=== PATIENT | male | born 1955 | race Hispanic/Latino ===

== ENCOUNTER 2024-08-24 12:53 | Inpatient (IN) | payer OTHER, SELFPAY ==
[2024-08-24] VITALS (27 sets, daily range): BP systolic 60–179; BP diastolic 50–102; BMI 32.2
[2024-08-24 11:41] LABS: % Basophils 0.6 % (0-2); % Eosinophils 2.4 % (0-6); % Immature Granulocytes 0.5 % (0-0.5); % Lymphocytes 31.6 % (20.5-51.1); % Neutrophils 55.9 % (42.2-75.2); Absolute Basophils 0.1 10^3/uL (0-0.2); Absolute Eosinophils 0.3 10^3/uL (0-0.7); Absolute Immature Granulocytes 0.1 10^3/uL (0-0.05); Absolute Lymphocytes 3.9 10^3/uL (1.2-3.4); Absolute Monocytes 1.1 10^3/uL (0.1-0.6); Absolute Neutrophils 6.9 10^3/uL (1.4-6.5); Hematocrit 51.7 % (39.0-52.0); Hemoglobin 16.7 g/dL (13.0-18.0); Mean Corp Hgb Conc. 32.3 g/dL (33.0-37.0); Mean Corpuscular Hgb 30.4 pg (27.0-31.0); Mean Corpuscular Volume 94.2 fL (80.0-94.0); Mean Platelet Volume 10.2 fL (7.4-10.4); Nucleated Red Blood Cells % 0 % (-); Platelet Count 212 10^3/uL (130-400); Red Blood Cell Count 5.49 10^6/uL (4.70-6.10); Red Cell Dist. Width 14.4 % (11.5-14.5); White Blood Cell Count 12.3 10^3/uL (4.8-10.8)
--- NOTE | 2024-08-24 11:43 | PHANOTE ---
patient comes into [facility] with Veronica galloway from [place] paperwork.
drug list includes:
loventrax (rivaroxaban 20mg tablets)
rosuvastatina 10mg tablets
alopurinol 300mg tablets
norfenon 150mg tablets
concor comprimido 1,25mg tablets (bisoprolol)
omeprazol 40mg
unival 1 [address] opra tablets
colchiquim 1 mg
angiotrofin retard 180mg
[2024-08-24] MEDS: SUBLIMAZE 100 MCG IV (11:59)
[2024-08-24] MEDS: DIPRIVAN 100 IV ×2 (12:00→16:18)
[2024-08-24] MEDS: SUBLIMAZE 100 IV ×2 (12:04→19:24)
--- NOTE | 2024-08-24 12:04 | ED.GENMED ---
History of Present Illness
General
Chief Complaint: Breathing Problem
Source: patient, spouse and ambulance crew
Exam Limitations: none
Time Seen by Provider: 08/24/24 11:57
Nursing documentation reviewed up to this point in time: agreed with
History of Present Illness
History of Present Illness:
69-year-old male presents emergency department due to shortness of breath, low blood pressure. He has been in the country from [place] 2 weeks. He had a cardiac ablation 4 to 6 weeks ago in [place]. He complains of trouble breathing. He is
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
Past History
Past History
ED Past Medical History: Arrthythmia
ED Past Surgical History: Cardiac (Cardiac ablation)
Social History
Tobacco: Non-smoker
Alcohol: None
Drug: None
Personal:
Living: with family
Review of Systems
Review of Systems
Allergies reviewed?: Yes
All Other Systems: Not applicable
Respiratory: Reports trouble breathing
Phy Exam
Physical Exam
Physical Exam:
Physical Exam
General: Severe respiratory distress, not cooperating with BiPAP
Neck: supple. no meningeal signs. normal posterior pharynx
Heart: s1/s2 regular rate and rhythm, no murmur. equal radial
pulses.
HEENT: Pupils equal round reactive to light, EOMI
Lungs: no acute respiratory distress. clear bilaterally
Abdomen: normal bowel sounds. not tender. no CVAT
Neuro: alert difficult to assess orientation. no focal neurological deficits cranial nerves II through XII intact
Skin: no rash
Psychiatric: well kept. interactive and cooperative
Extremities: no edema. no calf tenderness. negative homans. good distal pulses
Scores
Heart Failure Risk
Heart Failure Risk Score: Yes
History of Stroke or TIA: No
History of intubation for respiratory distress: No
Heart rate on ED arrival >/= 110: Yes
SaO2 <90% on arrival on room air: Yes
HR >/=110 during 3min walk test (or too ill to perform test): Yes
ECG has acute ischemic changes: No
Urea >/=12mmol/L (BUN 33.6mg/dL): No
Serum CO2>/=35mmol/L: No
Troponin I or T elevated to IL Level (0.4mg/dL): No
NT-proBNP >/=5,000ng/L (5,000pg/ml): No
HF Risk Score: 3
Admission Status: HIGH RISK 15.9% Consider SNF treatment or admission to hospital
Course
Orders/Labs/Results
Orders:
Orders
08/24/24
Electrocardiogram (*1) Stat
Comment: DONE EMR
08/24/24 11:29
Electrocardiogram (*1) Urgent
Reason for Study: Shortness of Breath
08/24/24 11:30
EKG- Treatment ONCE
Chest X-ray Portable [CR Chest Portable - 1 View] Urgent
Comment:
Reason For Exam: sob
Reason Study Needs to be Portable: Unable to Transport
08/24/24 11:32
BNP [NT-proBNP] Urgent
Complete Blood Count/With Diff Urgent
Troponin I Urgent
08/24/24 11:33
Nitroglycerin 100 mg/250 ml [Nitroglycerin Premix] 100 mg in 250 ml .ROUTE .STK-MED
08/24/24 11:52
NORepinephrine 4 MG/250 ML [Levophed] 0 mg in 0 ml .ROUTE .STK-MED
08/24/24 11:56
FentaNYL 1,000 MCG/100 ML [Sublimaze] 1,000 mcg in 100 ml .ROUTE .STK-MED
Fentanyl Citrate/Pf [Sublimaze] 100 mcg .ROUTE .STK-MED ONE
08/24/24 11:57
Propofol 1,000,000 Mcg/100 ml [Diprivan] 1,000,000 mcg in 100 ml .ROUTE .STK-MED
08/24/24 12:00
FentaNYL 1,000 MCG/100 ML [Sublimaze] 1,000 mcg in 100 ml IV NOW
Indication:: Light Sedation
Begin Infusion:: Now
Goal:: pain score </= 1, CPOT 0-2
Maximum dose in mcg/hr:: 300
Initial Dose in mcg/hr:: 100
Titration Instructions:: Titrate every 30 minutes if patient exhibits signs of pain or discomfort
Titration Instructions:: (pain score >/= 2, CPOT >/= 3).
Titration Instructions:: Administer bolus dose and increase infusion by 25 mcg/hr.
Taper Instructions:: If pain score at goal for 4 consecutive hours (pain score </= 1, CPOT 0-2)
Taper Instructions:: decrease infusion by 50 mcg/hr every 2 hours.
Taper Instructions:: When dose </= 50 mcg/hr may turn infusion off and consider PRN
Taper Instructions:: intermittent bolus doses only.
Over-sedation Instructions:: If CPOT 0-2 (goal) and RASS -3 to -5 (below goal) decrease sedative by 50%
Over-sedation Instructions:: first. If pain score remains at goal and RASS remains below goal in 1 hour,
Over-sedation Instructions:: decrease opioid infusion by 50%.
Notify provider:: immediately if pt exhibits: chest wall rigidity, hemodynamic instability,
Notify provider:: agitation/pain despite maximum dosing, pain when RASS below goal.
Additional Instructions:: Patient MUST be mechanically ventilated.
Fentanyl Citrate/Pf [Sublimaze] 100 mcg IV NOW STA
Fentanyl Citrate/Pf [Sublimaze] 50 mcg IV [id number] PRN
Propofol 1,000,000 Mcg/100 ml [Diprivan] 1,000,000 mcg in 100 ml IV NOW
Indication:: Light Sedation
Begin Infusion:: Now
Goal:: RASS 0 to -2
Maximum dose in mcg/kg/min:: 50
Initial dose based on RASS:: Yes
If RASS is:: +1 or pt hemodynamically unstable (SBP < 90mmHg), initiate at 10 mcg/kg/min
If RASS is:: +2, initiate at 20 mcg/kg/min
If RASS is:: greater than or equal to +3, initiate at 30 mcg/kg/min
Titration Instructions:: Titrate by 5-10 mcg/kg/min every 5 minutes until RASS 0 to -2 achieved.
Taper Instructions:: If RASS is at or below goal for 4 consecutive hours decrease infusion by
Taper Instructions:: 5-10 mcg/kg/min every 2 hours to off.
Over-sedation Instructions:: If CPOT 0-2 (at goal) AND RASS -3 to -5 (below goal) decrease sedative by
Over-sedation Instructions:: 50% first. If pain score remains at goal and RASS remains below goal in
Over-sedation Instructions:: 1 hour, decrease opioid infusion by 50%.
Notify provider:: immediately if patient exhibits signs/symptoms of propofol-related
Notify provider:: infusion syndrome.
Additional Instructions:: Patient MUST be mechanically ventilated and MUST receive analgesia.
08/24/24 12:07
CR Chest Portable - 1 View Urgent
Comment:
Reason For Exam: post intubation
Reason Study Needs to be Portable: Patient Unstable
08/24/24 12:35
Electrocardiogram (*1) Urgent
Reason for Study: Tachycardia
EKG- Treatment ONCE
08/24/24 12:41
Admit/Transfer Patient As Directed
Co-Sign Provider:
Level of Care: Inpatient admission
Assign to:: ICU
Physician / Group: radha
Diagnosis: cardiac arrest, CHF
Reason for Hospitalization: cardiac arrest chf
Expected length of stay greater than two midnights?: Yes
ELOS- Estimated Length of Stay in days: 2
I certify the patient meets the requirements for IP care: Yes
PRN Pain Medication Management As Directed
May give lesser potent ordered pain med per pt: Yes
preference::
Protocol:: Medication orders for pain may be administered in a
manner that supports deferring to patient preference
when the pt is:
- Requesting an ordered lesser potent pain medication.
Least to most potent pain medications are defined
as: acetaminophen < NSAID < tramadol < opioids
(morphine, oxycodone, hydromorphone).
- Requesting a lesser dose of the same medication IF
ORDERED.
- Requesting a less intrusive route of administration
if both routes are prescribed by the provider (PO <
IV).
08/24/24 12:42
Code Status As Directed
Resuscitation Status: Full Code
08/24/24 13:22
Activity As Directed
Activity Level: As Tolerated
I/O [Intake/ Output] As Directed
Frequency: Per unit guidelines
Vital Signs As Directed
Frequency: Per unit guidelines
DX Deep Vein Thrombosis Video Routine
08/25/24 06:00
Complete Blood Count/With Diff IN AM
Comprehensive Metabolic Panel IN AM
Abnormal Lab Results
08/24/24
11:32
WBC 12.3 H 10^3/uL
(4.8-10.8)
MCV 94.2 H fL
(80.0-94.0)
MCHC 32.3 L g/dL
(33.0-37.0)
Abs Immat Gran (auto) 0.1 H 10^3/uL
(0-0.05)
Absolute Neuts (auto) 6.9 H 10^3/uL
(1.4-6.5)
Absolute Lymphs (auto) 3.9 H 10^3/uL
(1.2-3.4)
Absolute Monos (auto) 1.1 H 10^3/uL
(0.1-0.6)
08/24/24 11:32
08/24/24 12:25
Vital Signs
Initial and Last Documented VS:
Initial Vital Signs
Pulse Resp BP Pulse Ox
108 16 117/102 79
08/24/24 11:24 08/24/24 11:24 08/24/24 11:24 08/24/24 11:24
Last Documented Vital Signs
Temp Pulse Resp BP Pulse Ox
98 F 119 23 98/65 91
08/24/24 15:19 08/24/24 12:15 08/24/24 12:15 08/24/24 12:15 08/24/24 15:32
Procedures
Intubations
Procedure completed by: Shruti
Method of Intubation: glidescope
Tube size (cm): 8.0
Placement confirmed by: auscutation, CXR, capnography and direct visualization
Breath sounds after intubation: equal
Intubation complications: no complications
MDM/Problems Addressed
Differential Diagnosis Includes:
Cardiac arrest rate, respiratory failure
MDM/Problems Addressed:
69-year-old male with respiratory failure, cardiac arrest, pulmonary edema. Patient was not cooperative with BiPAP, became hypoxic, lost pulses and required intubation. After 5 rounds of epinephrine, CPR, patient regained pulses. Chest x-ray
consistent with pulmonary edema. Admit to ICU.
Chronic conditions affecting care: Arrhythmia
Acute Exacerbation and/or Progression of Chronic Illness: Arrhythmia
*Radiology
Radiology exam reviewed: preliminary read by ED provider (Chest x-ray reveals proper placement of ET tube) and radiology read reviewed (Chest x-ray is pulmonary edema)
*Pulse Oximetry
Patient hypoxic: yes
*EKG
Interpreted by ED Provider?: Yes
EKG Intrepretation Date: 08/24/24
EKG Intrepretation Time: 11:53
Interpretation: abnormal
Comparison EKG: no comparison EKG present
Heart Rate: 122
Rate: tachycardiac
[place]: normal axis
Interval: normal interval
QRS Pattern: left bundle branch block
Ischemia: non-specific ST changes
*Operations Controller Interpretation
Rate: tachycardiac
Interpretation: abnormal
Heart Rate: 125
Rhythm: sinus tachycardia
*Critical Care Note
Total Time (30-74mins, 75-104mins- exclusive of procedures): 45
comment:
Critical care statement: A total of 45 minutes of critical care time was provided for this patient. This includes management of unstable vital signs, evaluation of the patient at bedside, reviewing the patient's pertinent medical records, discussion
with consultants, review of old EKGs and review of pertinent medical records. This time with separate from time utilized to perform the aforementioned documented procedures
Patient Management
Social determinants of health affecting care: Living situation and Strong social support
Discussion with other providers: Hospitalist
Escalation/DeEscalation of care consider admission/obs:
Admit indicated
ED Attending Note
-
Portions of this chart may have been created with voice recognition software.� Occasional wrong word or��sound alike� substitutions may have occurred due to the inherent limitations of voice recognition software.
Discharge Plan
Departure
Patient Disposition: Admit
Date of Disposition: 08/24/24
Time of Disposition: 11:59
Admit to: ICU
Presentation/result/management discussed w/ accepting MD/DO: Hospitalist
Patient with high blood pressure during this ER visit?: Yes
Condition: Serious
Discharge Problem:
Respiratory failure, Cardiac arrest
Interventions
Interventions:
*Risk Screen - Suicide Last Done: 08/24/24 11:24
*General Assessment Last Done: 08/24/24 11:24
*Neglect/Abuse Screening Last Done: 08/24/24 11:24
*ED COVID-19 Vaccine History Last Done: 08/24/24 11:24
*Nursing Disposition Last Done: 08/24/24 14:27
ED- Cardiac Assessment Last Done: 08/24/24 11:34
ED- Pulmonary Assessment Last Done: 08/24/24 11:38
Discharge Date and Time
Discharge Date/Time: 08/24/24 14:28
[2024-08-24 12:13] LABS: NT-proBNP 2170 pg/ml; Troponin I < 0.012 ng/ml
--- NOTE | 2024-08-24 12:39 | CON.INTV ---
Consultation
Consultation Request
Date/Time Consultation Requested: 08/24/2024-1 PM
Date/Time Consultation Performed: 08/24/2024-1:30 PM
Requesting Provider: Hospitalist
Performing Provider: Dr. Arreguin
Reason for Consultation: Ventilator/critical care management
Medical History
-
Chief Complaint: Cardiac arrest
History of Present Illness:
69-year-old male with a history of cardiac ablation 4 to 6 weeks ago in [place] recently coming to the [facility] 2 weeks ago presented with shortness of breath with subsequent cardiac arrest in the emergency room-PEA status post immediate CPR, epi
x 5 with ROS within 15 minutes requiring intubation-subsequent rhythm a flutter with moving extremities-hepatology physician consulted for ventilator/critical care management 08/24/2024. Patient is intubated, mechanically ventilated and sedated and review
of systems was unobtainable.
Past Medical History
Past Medical History: None (Arrhythmia status post cardiac ablation in [place] 6 weeks ago.)
Social History
Tobacco: Non-smoker
Alcohol: None
Drug: None
Personal:
Living: With Family
Occupational Exposures: Unknown asbestos exposure
Environmental Exposures: Unknown tuberculosis exposure
Family History
Family History: Unable to Obtain
Allergies / Home Medications
Allergies
Allergy/AdvReac Type Severity Reaction Status Date / Time
Sulfa (Sulfonamide Allergy Unknown Verified 08/24/24 11:36
Antibiotics)
Home Medications
�Medication �Instructions �Recorded �Confirmed �Last Taken �Type
Colchiquim 1 mg PO UD 08/24/24 08/24/24 Unknown History
Diltiazem 180 mg PO DAILY 08/24/24 08/24/24 Unknown History
allopurinol 300 mg tablet 300 mg PO DAILY 08/24/24 08/24/24 Unknown History
bisoprolol fumarate 1 tab PO Q12H 08/24/24 08/24/24 Unknown History
omeprazole 40 mg capsule,delayed 40 mg PO UD 08/24/24 08/24/24 Unknown History
release
propafenone 150 mg tablet 150 mg PO UD 08/24/24 08/24/24 Unknown History
rivaroxaban 20 mg tablet (Xarelto) 20 mg PO QPM 08/24/24 08/24/24 Unknown History
rosuvastatin 10 mg tablet (Crestor) 10 mg PO QPM 08/24/24 08/24/24 Unknown History
sucralfate 1 gram tablet (Carafate) 1 g PO UD 08/24/24 08/24/24 Unknown History
Review of Systems
-
Unable to Obtain full review of systems at this time due to: Patient Intubation
Vitals / Labs / Diagnostic Testing
Vital Signs
Pulse Resp BP Pulse Ox
119 23 98/65 79
08/24/24 12:15 08/24/24 12:15 08/24/24 12:15 08/24/24 11:51
Lab Data
08/24/24 11:32
Diagnostic Testing:
Physical Exam
-
Exam:
Well-nourished and well-developed in no apparent distress
HEENT-atraumatic, normocephalic, oral tracheal intubation
Heart-regular rate and rhythm-no murmurs, rubs or gallops
Chest-clear anteriorly with few basilar crackles and no wheezes
Abdomen soft nondistended
Extremities-no cyanosis, clubbing, edema and good peripheral pulses
Integument-intact, no rashes, lesions or ecchymosis
Neurologically not alert, not oriented, not moving any of his extremities sedated on a ventilator
Assessment
-
69-year-old male with a history of cardiac ablation 4 to 6 weeks ago in [place] recently coming to the [facility] 2 weeks ago presented with shortness of breath with subsequent cardiac arrest in the emergency room-PEA status post immediate CPR, epi
x 5 with ROS within 15 minutes requiring intubation-subsequent rhythm a flutter with moving extremities-hepatology physician consulted for ventilator/critical care management 08/24/2024.
Cardiac arrest
Intubated 08/24/2024-
Extubated
CHF-unknown EF
Recent cardiac ablation in [place] 6 weeks ago
Mild leukocytosis
Diffuse bilateral interstitial and alveolar [id number] EF versus diffuse pneumonia
Conditions present prior to admission:
Arrhythmia status post cardiac ablation July 2024-[place]
Plan
Patient critically ill after cardiac arrest requiring intubation and mechanical ventilation
Admit patient to medical intensive care unit
Ventilator settings reviewed
Adjust ventilator
Follow ABG
Monitor airway pressures
Follow radiographically
VAP prevention protocol
Sedation vacations
Trend troponin
Cardiology evaluation
Arrhythmia monitoring and rate control
Diuresis as tolerated
Monitor renal function, electrolytes, intake/output, lower extremity edema and weight
Replace electrolytes as needed
Check echocardiogram
Check cultures
Check COVID
Trend temperature and leukocytosis
Check procalcitonin
Sputum culture
Empiric antibiotics
DVT prophylaxis
GI prophylaxis if on ventilator and hypotensive
Early nutrition
Early mobilization/bedside range of motion
Critical care statement: A total of 65 minutes of critical care time was provided for this patient today. This includes management of unstable vital signs, evaluation of the patient at bedside, reviewing the patient's pertinent medical records
including radiographs, ventilator management, spontaneous breathing trial management, pressor management, microbiology, laboratory evaluations, and discussion with primary team, consultants, pharmacy, nutrition, physical therapy, case management,
charge nurse, critical care nursing, and respiratory therapy.
Diagnostic data:
Chest x-ray 08/24/2024-diffuse pulm edema versus diffuse pneumonia
Data Reviewed
-
EKG: Report reviewed by me
Radiology: Image personally visualized and interpreted and Report reviewed by me
Labs: Labs reviewed by me
Old Records: Reviewed
Critical Care Time (in minutes): 65
--- NOTE | 2024-08-24 12:57 | HPS.HSE ---
Family Physician
-
Family Physician: INTERVIEWE UNKNOWN - PT NOT
Chief Complaint
-
shortness of breath
History of Present Illness
69-year-old [place]-speaking male past medical history of atrial fibrillation status post ablation on July 22 in [place], hypertension, gout, GERD, presenting with shortness of breath He has been [place] the country for [place] for 2 weeks. He had
cardiac ablation 4 to 6 weeks ago in [place]. He tolerated the procedure well. He complained of shortness of breath today and became diaphoretic and EMS was called. He has had cough since the ablation. No fevers or chills. No dizziness or
syncope. He was in good health until today.
No history of asthma/COPD or sleep apnea. He does not have smoking or alcohol use history.
No family history of heart conditions.
Patient developed cardiac arrest in the emergency room. He was intubated in the emergency room. 5 rounds of epinephrine were given. No shocks were given.
Medical History
Past Medical History
Past Medical History: Reports Other (atrial fibrillation status post ablation on July 22 in [place], hypertension, gout, GERD)
Past Surgical History: Reports Other (Hernia surgery, cataract, tonsillectomy)
Social History
Tobacco: Non-smoker
Alcohol: None
Drug: None
Family History
Family History: Not pertinent
Allergies / Home Medications
Allergies reflects when Allergies were last updated in [facility].
Home Medications with original date entered in [facility]
Allergy/Medication List:
Allergies
Allergy/AdvReac Type Severity Reaction Status Date / Time
Sulfa (Sulfonamide Allergy Unknown Verified 08/24/24 11:36
Antibiotics)
Home Medications
Colchiquim 1 mg PO UD 08/24/24
Diltiazem 180 mg PO DAILY 08/24/24
allopurinol 300 mg tablet 300 mg PO DAILY 08/24/24
bisoprolol fumarate 1 tab PO Q12H 08/24/24
omeprazole 40 mg capsule,delayed release 40 mg PO UD 08/24/24
propafenone 150 mg tablet 150 mg PO UD 08/24/24
rivaroxaban 20 mg tablet (Xarelto) 20 mg PO QPM 08/24/24
rosuvastatin 10 mg tablet (Crestor) 10 mg PO QPM 08/24/24
sucralfate 1 gram tablet (Carafate) 1 g PO UD 08/24/24
Review of Systems
-
History Source: Patient
A 12 point ROS was completed and negative except as noted: Yes
Constitutional: Reports No Symptoms
EENT: Reports No Symptoms
Respiratory: Reports No Symptoms
Cardiac: Reports No Symptoms
Abdomen/GI: Reports No Symptoms
: Reports No Symptoms
Musculoskeletal: Reports No Symptoms
Skin: Reports No Symptoms
Neurological: Reports No Symptoms
Endocrine: Reports No Symptoms
Hematologic/Lymphatic: Reports No Symptoms
Psych: Reports No Symptoms
Physical Exam
Vital Signs
Vital Signs
Pulse Resp BP Pulse Ox
119 23 98/65 79
08/24/24 12:15 08/24/24 12:15 08/24/24 12:15 08/24/24 11:51
Physical Exam
General: Well Developed, Well Nourished and No Apparent Distress
HEENT: NormoCephalic, Moist mucous membranes and Atraumatic
Respiratory: Clear
Cardiac: S1/S2 and Regular Rhythm; No Murmur or Rub
GI: Soft, Non Tender, Non Distended and Normal Bowel Sounds; No Organomegaly
Rectal: Deferred by Provider
Musculoskeletal: No Clubbing, No Cyanosis and No Edema
Skin: No Rash
Neuro: Nonfocal/grossly intact
Laboratory Results
-
08/24/24 11:32
Laboratory Results
Total Bilirubin Cancelled 08/24/24 12:25
Total Bilirubin Cancelled 08/24/24 12:25
AST Cancelled 08/24/24 12:25
AST Cancelled 08/24/24 12:25
ALT Cancelled 08/24/24 12:25
ALT Cancelled 08/24/24 12:25
Alkaline Phosphatase Cancelled 08/24/24 12:25
Alkaline Phosphatase Cancelled 08/24/24 12:25
Troponin I < 0.012 ng/ml 08/24/24 11:32
Data Reviewed
-
Lab Data: Labs Reviewed by me
Old Records: Reviewed
Impression/Plan
-
IMPRESSION:
PLAN:
# Cardiac arrest secondary to hypoxemic respiratory failure
# Hypoxemic respiratory failure secondary to acute CHF exacerbation
-Hypoxemic respiratory failure rather than arrhythmia appears to be the source of cardiac arrest
-Patient was intubated in the ER for cardiac arrest/dyspnea
-Patient currently on propofol, fentanyl
-Blood pressure initially 90s, has improved currently
-Cardiac BNP of 1999
-EKG shows atrial flutter with 2 1 AV conduction
-Troponin negative
-40 IV Lasix, caution with blood pressure
# Atrial flutter with 2-1 conduction block
-Check echo
-cardiology consulted for input regarding rate control/antiarrhythmic
-Hold diltiazem, bisoprolol
Atrial fibrillation status post ablation on July 22
-Normally on propafenone
-Continue Xarelto through NG tube
Essential hypertension
Gout
-Continue allopurinol
GERD
-Continue sucralfate
Full code
DVT prophylaxis�heparin
NPO
--- NOTE | 2024-08-24 13:18 | CON.CAR ---
Addendum entered and electronically signed by Nadege Hernandez MD 08/25/24 12:32:
I saw and examined the patient.
The Inspector Hairspring Truing's note was reviewed and I agree with the note.
Comment: Late entry note
Patient was seen at bedside in the ICU yesterday afternoon around 3:50 PM. Detailed history was obtained and confirmed as below from . Phone discussions were also had with nephew who is a political consultant at [facility] in
[place]. Briefly, patient is a 69-year-old gentleman with past medical history of hypertension, hyperlipidemia, morbid obesity, chronic sinus infections, gout, paroxysmal A-fib status post ablation procedure in [place] on July 22, 2024 on
chronic oral anticoagulation with Xarelto, last dose evening before presentation and propafenone, last dose this morning who presented with acute onset of shortness of breath found to be hypoxic complicated by PEA arrest in the setting of hypoxia
needing urgent intubation and ROSC was obtained after 5 rounds of ACLS with echocardiogram at bedside concerning for severe global hypokinesis, LVEF of about 15% on visual estimation, no significant pericardial effusion, no significant valvular
abnormalities with increasing pressor requirements.
On exam patient is intubated and sedated, moving all extremities when sedation is lowered, tachycardic, normal S1 and S2, no murmurs, rubs or gallops, distant heart sounds, elevated JVD, lungs are clear to auscultation anteriorly, abdomen is obese,
otherwise soft, nontender, nondistended, warm extremities with trace lower extremity edema.
EKG showing atrial flutter with 2-1 conduction, left bundle branch block.
Lab work noted with creatinine of 1.1, lactate of 1.2, normal LFTs
Recommendation:
1. In the setting of severe global hypokinesis with presumably normal echocardiogram previously and increasing pressor requirements, we discussed role of urgent right and left heart catheterization to further define etiology of cardiomyopathy and
to help guide management and assess need for MCS in the setting of cardiogenic shock.
2. After detailed discussion family agreeable with consenting on patient's behalf given he is intubated and sedated.
Further recommendations as discussed with the team based on heart catheterization. Please see full report for further details.
Nadege Hernandez MD, [facility], [facility]
Original Note:
Consultation
Consultation Request
Date/Time Consultation Performed: 08/24/24
Requesting Provider: Dr. Bahena
Performing Provider: Ellie Barreto PA-C for Dr. Hernandez
Reason for Consultation: cardiac arrest
Medical History
-
Chief Complaint: SOB
History of Present Illness:
History obtained from patient's , Erika as patient intubated, sedated. He has history of PAF (~2% burden) which then became persistent (100% burden) as of 02/2024. He was never symptomatic with afib. He underwent ablation 07/22/24 in [place] and
procedure reportedly went well. He is on propafenone and xarelto. He started with cough (feeling of lump in his throat) 2 days post procedure and has persisted. Due to this he was started on trial of colchicine and carafate and was supposed to
complete his course today. 2 weeks ago he and his came to the area to help take care of his 97 yo mother who lives at [facility] who just had what sounds like a TAVR procedure in July. Last evening and this morning his SOB worsened and
called 911. In ER patient had PEA arrest with prompt CPR resulting in 5 rounds of epi, no shocks. With ROSC was noted to be in aflutter rhythm. He is chronically on xarelto as OP. Per patient's son who I spoke to via telephone patient had echo
pre ablation which showed normal EF, no valvular disease or diastolic dysfunction. He does not have history of CAD but son tells me they had ordered a cardiac CT to be completed post ablation based on something they saw during his ablation. Per
nursing patient is moving all extremities. Cardiology consulted for evaluation.
PMH:
PAF s/p ablation procedure in [place] 07/22/24
Chronic OAC with xarelto
Post procedure pericarditis
HTN
HLD
Gout
Chronic sinus infections/issues
Past Medical History
Past Medical History: Other (in HPI)
Social History
Tobacco: Non-Smoker
Alcohol: None
Personal:
Living: With Family
Family History
Family History: Other (valve replacement in mother)
Allergies / Home Medications
Allergy/AdvReac Type Severity Reaction Status Date / Time
Sulfa (Sulfonamide Allergy Unknown Verified 08/24/24 11:36
Antibiotics)
�Medication �Instructions �Recorded �Confirmed �Type
Colchiquim 1 mg PO UD 08/24/24 08/24/24 History
Diltiazem 180 mg PO DAILY 08/24/24 08/24/24 History
allopurinol 300 mg tablet 300 mg PO DAILY 08/24/24 08/24/24 History
bisoprolol fumarate 1 tab PO Q12H 08/24/24 08/24/24 History
omeprazole 40 mg capsule,delayed 40 mg PO UD 08/24/24 08/24/24 History
release
propafenone 150 mg tablet 150 mg PO UD 08/24/24 08/24/24 History
rivaroxaban 20 mg tablet (Xarelto) 20 mg PO QPM 08/24/24 08/24/24 History
rosuvastatin 10 mg tablet (Crestor) 10 mg PO QPM 08/24/24 08/24/24 History
sucralfate 1 gram tablet (Carafate) 1 g PO UD 08/24/24 08/24/24 History
Review of Systems
-
Unable to obtain full review of systems at this time due to: Patient Intubation
History Source: Family
All other systems: Negative unless noted
Physical Exam
Vital Signs
Pulse Resp BP Pulse Ox
119 23 98/65 79
08/24/24 12:15 08/24/24 12:15 08/24/24 12:15 08/24/24 11:51
Lab Results
08/24/24 11:32
Troponin I < 0.012 ng/ml 08/24/24 11:32
Axb-T-Ordkgzsinca Pept 2170 pg/ml 08/24/24 11:32
Physical Exam
General: No Apparent Distress and Intubated
HEENT: Normocephalic and Moist Mucous Membranes
Respiratory: Crackles (few at bases) and Non Labored Respirations
Cardiac: S1/S2, Regular Rhythm and Other (tachycardic)
GI: Soft, Non Tender, Non Distended and Normal Bowel Sounds
Musculoskeletal: No Clubbing, No Cyanosis and Edema (trace of B/L LE)
Skin: Warm and Dry
Neuro: Sedated
Impression / Plan
-
Primary Image Editor: in [place]
Assessment:
Presentation with SOB
PEA arrest with CPR and epi x5 with ROSC
Hypoxemic RF, intubated in ER 08/24/24
B/L PNA vs Acute CHF
LBBB
Atrial flutter
PAF s/p ablation procedure in [place] 07/22/24
Chronic OAC with xarelto
Post procedure pericarditis
HTN
HLD
Gout
Chronic sinus infections/issues
ECHO pre ablation in [place]: EF preserved, no significant valvular disease, no diastolic dysfunction
Plan:
-Patient with recent cardiac ablation procedure in [place] for atrial fibrillation 07/22/2024, visiting his mother at [facility] over last 2 weeks. Last evening and this morning with worsening shortness of breath. This morning called 911
and was brought to ER. In ER patient noted to have PEA arrest with CPR and epi x 5 with ROSC. Suspect arrest to be secondary to hypoxemic respiratory failure. X-ray with diffuse bilateral interstitial and alveolar infiltrates�concern for heart
failure versus pneumonia. At time of ROSC patient noted to be in atrial flutter.
-EKG atrial flutter with left bundle branch block
-follow on tele. was on propafenone as OP. may consider transition to amiodarone if remains with elevated HRs given relative hypotension
-if BPs downtrending, may require pressor support
-check echo
-initial trop negative, trend
-not candidate for cooling protocol
-proBNP 2170. assess response to IV lasix 40mg x1. Cr stable at 1.1. no history of CHF per family. reports cough since procedure - started on colchicine and carafate
-continue xarelto as able. consider transition to IV heparin if remains intubated
-continue treatment of possible PNA per primary service/ip architect. procal pending. covid pending
-his cleaner touch up worker had wanted him to get coronary CT per son based on something they saw during patient's ablation. may require eventual ischemic evaluation.
-d/w patient's . d/w patient's son who is a vascular surgeon in [facility] and updated via telephone. also requested we call patient's nephew who is a cleaner touch up worker at [facility].
Data Reviewed
-
EKG: Tracing Personally Visualized and interpreted
Radiology: Report Reviewed by me
Labs: Labs Reviewed by me
[2024-08-24 13:25] LABS: ALT (SGPT) 40 U/L (0-50); AST (SGOT) 42 U/L (17-59); Albumin 3.6 g/dl (3.5-5.0); Alkaline Phosphatase 65 U/L (38-126); Blood Urea Nitrogen 21 mg/dl (9-20); Calcium 7.9 mg/dl (8.4-10.2); Carbon Dioxide 25 mmol/L (22-30); Chloride 103 mmol/L (98-107); Glucose 246 mg/dl (70-99); Potassium 4.6 mmol/L (3.5-5.1); Sodium 140 mmol/L (135-145); Total Bilirubin 0.9 mg/dl (0.2-1.3); Total Protein 5.7 g/dl (6.3-8.2); Triglycerides 91 mg/dl (10-149); eGFR > 60.00
[2024-08-24] MEDS: LASIX 40 MG IV (13:46)
[2024-08-24] MEDS: SUBLIMAZE 50 MCG IV ×3 (13:46→14:54)
[2024-08-24] MEDS: LEVOPHED 250 IV (13:50)
[2024-08-24 14:16] LABS: B.E. -2.1 mmol/L; HCO3 25.1 mmol/L (21-28); O2 Saturation % 98.5 % (94-98); PCO2 51 mmHg (35-48); PO2 102 mmHg (83-108)
[2024-08-24 14:20] LABS: Glucose - Point of Care 175 mg/dl (70-99)
[2024-08-24] MEDS: XOPENEX 0.63 MG INHALANT SOLUTION INH (14:31)
[2024-08-24 14:35] LABS: COVID-19 Antigen Negative (Negative)
--- NOTE | 2024-08-24 15:17 | W.PN.UPDATE ---
Update Note
Progress Note Update
Reevaluated the patient at the bedside on multiple occasions
Difficult to sedate-fentanyl boluses given, Ativan given
Mental status-moving all extremities, pupils equal, do not suspect significant anoxic encephalopathy
Nasogastric tube could not be placed
[place] frothy fluid from endotracheal tube
Minimal urine output
Persistent hypotension-now requiring norepinephrine at 8
Not responding to Lasix
Ventilator adjusted to help with oxygenation
Follow ABG
Echocardiogram with severely reduced EF-spoke to nephazam who is a applications scientist at [facility] and patient had normal EF recently and no valvular disease
Suspect decompensation is cardiogenic-no infectious prodrome
Spoke to nephazam Gilbert [phone] and updated on current clinical situation-I suggested he talk to our applications scientist-I contacted cardiology and they will call him
I suggested possible right heart catheterization, eventual potential ischemia workup though initial troponin negative and possible cardiac output augmentation with Impella or other device
If patient cannot be stabilized patient may need to transfer to tertiary center-will leave this up to cardiology as well
Updated family, critical care nursing, team taking care of patient as well as cardiology
As a side note the patient also has obstructive sleep apnea
Total critical care time spent today 95 minutes thus far
[2024-08-24 15:36] LABS: INR 2.33
[2024-08-24 15:37] LABS: APTT 39.4 Sec (23.4-35.0)
[2024-08-24 15:38] LABS: Triglycerides 128 mg/dl (10-149)
[2024-08-24] MEDS: VIBRAMYCIN 260 MG IV (16:03)
[2024-08-24] MEDS: STERILE WATER FOR INJECTION 10 ML IV (16:06)
[2024-08-24] MEDS: ROCEPHIN 1000 MG IV (16:06)
[2024-08-24 16:16] LABS: B.E. -1.5 mmol/L; HCO3 25.2 mmol/L (21-28); O2 Saturation % 92.7 % (94-98); PCO2 49 mmHg (35-48); PO2 64 mmHg (83-108); pH 7.32 (7.35-7.45)
[2024-08-24] MEDS: NEO-SYNEPHRINE 250 IV (16:19)
[2024-08-24 16:23] LABS: Lactic Acid 1.2 mmol/L (0.7-2.0)
--- NOTE | 2024-08-24 16:56 | PTCARENOTE ---
Addendum entered by Renate Velásquez RN 08/24/24 17:15:
Dr Hernandez was okay with not starting heparin gtt prior to cath
Original Note:
Received pt from ED around 1330, intubated and sedated on fentanyl and propofol. Once in bed, sedation stopped to assess mental status post arrest. Pt moved all extremities and followed simple commands but easily agitated and hypoxic on vent
requiring restart of sedation and multiple boluses of fentanyl. Pt still with vent dyssynchrony/hypoxia and decision made to change to deep sedation. Pt was also given lasix as ordered with borderline bp and levophed was initiated as charted.
Multiple attempts made to place ngt for meds without success. Dr Arreguin aware. Pt had bedside echo completed with decreased heart function and Ellie Barreto was updated to above. No further orders at this time. Despite increasing levophed, bp
remained borderline, Dr Hernandez was at bedside to see pt and spoke with and obtained consent for cath, preferred neosynephrine be added as second pressor which was initated prior to transferring pt to laborer aquatic life after report was given to Estelle.
and friend in room and updated, questions answered as able. Otherwise please refer to worklist.
--- NOTE | 2024-08-24 16:56 | ITS.CL.CATH ---
Employment Counselor - Catheterization
Cardiac Catheterization
Procedure Report:
LEFT AND RIGHT HEART CATHETERIZATION
Date of Procedure: August 24, 2024
Referring: Nadege Hernandez MD
PROCEDURES:
1. Left heart catheterization, coronary angiogram.
2. Right heart catheterization with leave in Recluse-Fer catheter.
3. Synchronized cardioversion
4. Ultrasound-guided access
INDICATION: New cardiomyopathy with LVEF of 10% and cardiogenic shock
ACCESS:
1. Right radial artery, 6 Swazi sheath, under ultrasound guidance. Given sheath was in an accessory radial and we could not navigate catheters up to the heart, this access was aborted.
2. Right internal jugular vein, 8 Swazi sheath, under ultrasound guidance using a micropuncture kit, sutured in place.
3. Right common femoral artery, 6 Swazi sheath, under ultrasound guidance using a micropuncture kit, sutured in place
HEMODYNAMICS : (mmHg)
RA (m) : 21
RV (s/d,m) : 44/18, 20
PA (s/d, m) : 48/36, 42
PCWP (m) : 28
PA saturation: 44.4% on 100% FiO2, improved to 47% on 100% FiO2 post cardioversion to normal sinus rhythm.
AO saturation: 91.1% on 100% FiO2
RA saturation: 49.2% on 100% FiO2
Cardiac Output : 3.48 L/min
Cardiac Index : 1.56 L/min/m-2
Systemic vascular resistance: 1702 dsc^(-5)
Pulmonary vascular resistance: 5.5 castanon unit
AO (s/d) : 113/81
CORONARY FINDINGS
DOMINANCE: Right
LEFT MAIN: The left main artery is a large-caliber vessel which gives rise to the left anterior descending artery and the left circumflex artery. There is minimal luminal irregularities.
LEFT ANTERIOR DESCENDING: The left anterior descending artery is a medium to large caliber vessel which gives rise to 2 major diagonal branches as it courses through the anterior interventricular groove and wraps around the apex. Proximal LAD has a
tubular 40 to 50% stenosis, otherwise there is minimal luminal irregularities.
CIRCUMFLEX: The left circumflex artery is a medium caliber vessel which gives rise to 2 major obtuse marginal branches. There is mild diffuse atherosclerotic plaque.
RIGHT CORONARY ARTERY: The right coronary artery is a large-caliber, dominant vessel which gives rise to the right posterior descending artery and the right posterolateral system. There is minimal luminal irregularities.
Decision was made to move forward with synchronized cardioversion. 200 J patient underwent a successful synchronized cardioversion from atrial flutter with 2:1 conduction to normal sinus rhythm.
RADIATION SUMMARY: Fluoro Time (min): 5.4, Dose (mGy): 532.5 DAP (Gy.cm2) : 38.95
Closure Device: Vascular band over right radial artery, 9 cc of air.
CONCLUSIONS
1. No obstructive coronary artery disease.
2. Significantly elevated right left-sided filling pressures with reduced cardiac output consistent with cardiogenic shock.
3. Significantly elevated systemic vascular resistance.
4. Successful synchronized cardioversion from atrial flutter to normal sinus rhythm.
RECOMMENDATIONS
1. Optimization of goal-directed medical therapy for cardiogenic shock and underlying nonischemic cardiomyopathy.
2. Close monitoring of lab work every 4-6 hours including lactate, CMP and mixed venous saturations.
3. Wean radial band per protocol.
4. Given successful cardioversion, IV heparin drip without a bolus in 4 hours as long as no issues with access sites.
Communicated plan with primary team, critical care team and nursing staff with extensive discussion with and family.
Nadege Hernandez MD, [facility], [facility]
[2024-08-24] MEDS: VERSED 100 IV (20:19)
[2024-08-24] MEDS: VERSED 2 MG IV (20:21)
[2024-08-24] MEDS: PRIMACOR 20 MG 100 IV (20:22)
[2024-08-24 20:25] LABS: Mixed Venous O2 Saturation 66.2 %
[2024-08-24] MEDS: LEVOPHED 258 MG IV (20:50)
[2024-08-24 20:57] LABS: Procalcitonin 0.39 ng/ml (0.0-0.25)
[2024-08-24 21:42] LABS: Glucose 117 mg/dl (70-99)
[2024-08-24] MEDS: NOVOLOG FLEXPEN-LOW RESISTANCE SC (21:53)
--- NOTE | 2024-08-24 21:54 | PTCARENOTE ---
Addendum entered by Radha Lopez RN 08/24/24 23:13:
running cardiac output and index q4hr per gab joy
Original Note:
pt received at bedside with previous rn from label pinker. pt with #8 ett 26cm at the lip. see vent settings as charted. pt ordered for deep sedation, propofol changed to versed gtt and fentanyl gtt continue as per order. bis score 70, Gab JOY aware,
ok to not give further sedation at this time as pt is synchronous with the ventilator. rass -4, pupils equal and reactive. arzate draining clear yellow urine. right ij swan and cordis site c/d/i. zeroed and functioning. right groin ese zeroed and
functioning. levophed continues for map>65. milrinone gtt initiated as per order. labs sent. plan of care discussed with gab joy. right radial trb with noted ecchymosis upon arrival, tr band removed per protocol, pressure dressing applied. pt
with weak palpable right radial pulse. doppler pedal pulses. pt pale in color. at bedside, updated, educated and verbalized understanding. all safety precautions in place.
[2024-08-24 22:59] LABS: Mixed Venous O2 Saturation 80.1 %
[2024-08-24 23:11] LABS: APTT 37.7 Sec (23.4-35.0)
--- NOTE | 2024-08-24 23:13 | PTCARENOTE ---
pt aroused to name, nodded yes and no appropriately and followed commands. remains synchronous with ventilator, resting comfortably at this time. assessment unchanged further. labs sent as per order. co 5.25, CI 2.35.
[2024-08-24] MEDS: HEPARIN 25000 UNITS/250 ML IV (23:22)
[2024-08-24] MEDS: NOVOLOG FLEXPEN-LOW RESISTANCE 1 UNITS SC (23:22)
[2024-08-24 23:24] LABS: Lactic Acid 1.1 mmol/L (0.7-2.0)
[2024-08-24 23:25] LABS: Glucose - Point of Care 155 mg/dl (70-99)
[2024-08-25] VITALS (19 sets, daily range): BP systolic 88–121; BP diastolic 61–80; BMI 33.0
[2024-08-25 00:10] LABS: ALT (SGPT) 39 U/L (0-50); AST (SGOT) 35 U/L (17-59); Albumin 3.8 g/dl (3.5-5.0); Alkaline Phosphatase 74 U/L (38-126); Blood Urea Nitrogen 23 mg/dl (9-20); Calcium 8.2 mg/dl (8.4-10.2); Carbon Dioxide 25 mmol/L (22-30); Chloride 100 mmol/L (98-107); Estimated Creatinine Clearance 78 ml/min; Glucose 131 mg/dl (70-99); Potassium 4.1 mmol/L (3.5-5.1); Sodium 139 mmol/L (135-145); Total Bilirubin 1.4 mg/dl (0.2-1.3); Total Protein 5.9 g/dl (6.3-8.2); eGFR > 60.00
[2024-08-25] MEDS: SUBLIMAZE 100 IV ×3 (01:28→19:46)
[2024-08-25] MEDS: VERSED 2 MG IV (04:07)
[2024-08-25] MEDS: OFIRMEV 100 IV (04:19)
[2024-08-25] MEDS: LEVOPHED 258 MG IV (04:23)
[2024-08-25 05:07] LABS: Hematocrit 40.2 % (39.0-52.0); Hemoglobin 13.1 g/dL (13.0-18.0); Mean Corp Hgb Conc. 32.6 g/dL (33.0-37.0); Mean Corpuscular Volume 92.2 fL (80.0-94.0); Mean Platelet Volume 9.9 fL (7.4-10.4); Platelet Count 186 10^3/uL (130-400); Red Blood Cell Count 4.36 10^6/uL (4.70-6.10); Red Cell Dist. Width 14.2 % (11.5-14.5); White Blood Cell Count 10.9 10^3/uL (4.8-10.8)
[2024-08-25 05:14] LABS: APTT 61.7 Sec (23.4-35.0)
[2024-08-25 05:32] LABS: B.E. 4.2 mmol/L; HCO3 28.4 mmol/L (21-28); Ionized Calcium 1.06 mMOL/L (1.15-1.33); PCO2 40 mmHg (35-48); PO2 124 mmHg (83-108); Potassium 3.8 mMOL/L (3.5-5.1); Sodium 134 mMOL/L (136-145); pH 7.46 (7.35-7.45)
[2024-08-25 05:34] LABS: O2 Therapy 50%
[2024-08-25 05:34] LABS: Glucose - Point of Care 111 mg/dl (70-99)
--- NOTE | 2024-08-25 05:35 | PTCARENOTE ---
pt with increase in core temp 100.9- melanie franksnp aware, jones cultures ordered and sent. ekg completed. assessment unchanged.
[2024-08-25 05:36] LABS: Mixed Venous O2 Saturation 82.5 %
[2024-08-25 05:37] LABS: Lactic Acid 1.2 mmol/L (0.7-2.0)
[2024-08-25 05:37] LABS: ALT (SGPT) 34 U/L (0-50); AST (SGOT) 29 U/L (17-59); Albumin 3.3 g/dl (3.5-5.0); Alkaline Phosphatase 67 U/L (38-126); Blood Urea Nitrogen 24 mg/dl (9-20); Calcium 7.7 mg/dl (8.4-10.2); Carbon Dioxide 26 mmol/L (22-30); Chloride 95 mmol/L (98-107); Estimated Creatinine Clearance 78 ml/min; Glucose 128 mg/dl (70-99); Sodium 134 mmol/L (135-145); Total Bilirubin 1.3 mg/dl (0.2-1.3); Total Protein 5.4 g/dl (6.3-8.2); eGFR > 60.00
[2024-08-25 05:39] LABS: Urine Albumin Trace (Neg - Trace); Urine Bilirubin 1+ (Negative); Urine Character Very Cloudy (Clear); Urine Color Brown; Urine Glucose Negative (Negative); Urine Ketone Trace (Negative); Urine Leukocyte 1+ (Negative); Urine Nitrite Positive (Negative); Urine Occult Blood 4+ (Negative); Urine Specific Gravity 1.025 (<1.030); Urine Urobilinogen Negative (Neg - 1+)
[2024-08-25] MEDS: NOVOLOG FLEXPEN-LOW RESISTANCE SC ×3 (05:39→17:30)
[2024-08-25] MEDS: PRIMACOR 20 MG 100 IV (06:36)
--- NOTE | 2024-08-25 07:45 | W.PN.INTV ---
Today's Communication / Plan
Recommendations
Adjust ventilator
Continue diuresis
Wean norepinephrine
Continue milrinone
Decrease sedation
Broaden antibiotics
Assessment
-
69-year-old male with a history of cardiac ablation 4 to 6 weeks ago in [place] recently coming to [facility] 2 weeks ago presented with shortness of breath with subsequent cardiac arrest in the emergency room-PEA status post immediate CPR, epi
x 5 with ROS within 15 minutes requiring intubation-subsequent rhythm a flutter with moving extremities-terrazzo worker consulted for ventilator/critical care management 08/24/2024.
Cardiac arrest
Intubated 08/24/2024-
Extubated
CHF--reduced EF
Dspyhexxdrjdhl-ypwutjdwlmd-euhsffwhtdx induced or Takotsubo
Cardiogenic shock-decreased MAP, increased SVR, decreased cardiac index, increased CVP
Recent cardiac ablation in [place] 4-6 weeks ago
Mild leukocytosis
Pneumonia-aspiration suspected
Diffuse bilateral interstitial and alveolar ijsznfgadwa-HBJ-ycjkzhc EF versus diffuse pneumonia
Conditions present prior to admission:
Arrhythmia status post cardiac ablation July 2024-[place]
Obstructive sleep apnea
Plan
Remains critically ill sedated on pressors on a ventilator
Ventilator settings reviewed
Ventilator adjusted
Wean FiO2 and then PEEP-reviewed with CASE INVESTIGATOR
ABG 08/25/2024-40/124/7.46
Monitor airway pressures
Chest x-ray 08/25/2024-CHF improved from prior, small left pleural effusion suspected as well as left lower lobe airspace disease
VAP prevention protocol
Sedation vacations
Decrease sedation to light sedation from deep sedation
Troponin negative
Cardiology evaluation ongoing-correspondence reviewed and spoke to them personally on multiple occasions
Arrhythmia monitoring and rate control
Diuresis as tolerated
Monitor PA pressures-PA diastolic improved with diuresis
Monitor renal function, electrolytes, intake/output, lower extremity edema and weight
Replace electrolytes as needed
Echocardiogram 08/24/2024-EF 20-25%, severe global hypokinesis, diastolic function intermediate, moderate mitral regurgitation, PA systolic 20-25
Cardiac catheterization 08/24/2024-no obstructing coronary artery disease, significant elevated right sided filling pressures-RA 21, PA 48/36, PCWP-28, cardiac index 1.56
Milrinone added
Wean and norepinephrine
Cultures reviewed
Urine culture-pending
Sputum culture-pending
Blood cultures-pending
Sputum culture 08/24/2024-usual respiratory donny
MRSA screen pending
Check COVID
Trend temperature and leukocytosis
Procalcitonin 0.39-mildly elevated
Empiric antibiotics-ceftriaxone and doxycycline initially-with ongoing temperatures and possible aspiration-ceftriaxone changed to Zosyn
DVT prophylaxis-on heparin drip-outpatient Xarelto
GI prophylaxis if on ventilator and hypotensive
Early nutrition-unable to place nasogastric tube-if not extubated in the next 24-48 hours then GI/nasogastric tube placement may be indicated
Early mobilization/bedside range of motion
Dr. Arreguin reviewed with 08/25/2024 at the bedside and again during multidisciplinary rounds including updating current clinical status and plan for ongoing supportive care
Dr. Arreguin reviewed with Dr. Fred Gilbert [phone]-patient's nephew who is a data entry email processor at [facility] on 08/24/2024
Critical care statement: A total of 50 minutes of critical care time was provided for this patient today. This includes management of unstable vital signs, evaluation of the patient at bedside, reviewing the patient's pertinent medical records
including radiographs, ventilator management, spontaneous breathing trial management, pressor management, microbiology, laboratory evaluations, and discussion with primary team, consultants, pharmacy, nutrition, physical therapy, case management,
charge nurse, critical care nursing, and respiratory therapy.
Diagnostic data:
Chest x-ray 08/24/2024-diffuse pulm edema versus diffuse pneumonia
Subjective Dataa
Subjective Data
Date of Service:
Date of Service: August 25, 2024
Chief Complaint: Accounts Specialist Follow Up, Pulmonary Follow Up and Vent Management Follow Up
Subjective:
Intubated, sedated, review of systems unobtainable, events overnight reviewed, beginning to diurese, FiO2 weaned a bit, still on pressors and milrinone
Review of Systems
General: Unobtainable - Sedation
Objective Data
Data Reviewed
Vital Signs / I&O / Oxygen:
Vital Signs
Temp Pulse Resp BP Pulse Ox
100.9 F H 95 20 110/68 96
08/25/24 04:16 08/25/24 06:15 08/25/24 06:15 08/25/24 06:00 08/25/24 07:40
Intake and Output
08/24/24 08/25/24 08/26/24
06:59 06:59 06:59
Intake Total 900.4 / 900.4
Output Total 2580 / 2580
Balance -1679.6 / -1679.6
SaO2 [A/C] 95
SaO2 96
Nasal Cannula flow liters per 6
minute
Physical Exam
General: Respiratory Distress (n) and Comfortable
HEENT: Normocephalic, Anicteric and Moist Mucous Membranes
Cardiovascular: Regular Rhythm and Murmur (n)
Respiratory: Wheeze (n), Crackles, Rhonchi, Non-Labored Respirations, Accessory Resp Muscle Use (n), Stridor (n) and ET Tube
GI: Soft, Non Distended and Non Tender
Neurology: Awake, Alert and No Motor Deficits
Skin: Warm, Good Color, Cyanosis (n), Jaundice (n) and Rash (n)
Labs/Micro/Reports
Lab Data
08/25/24 04:35
Laboratory Results
08/24/24 08/24/24 08/24/24
13:48 15:13 15:58
PT 26.0 H
INR 2.33
APTT 39.4 H
pH 7.30 L 7.32 L
pCO2 51 H 49 H
pO2 102 64 L
HCO3 25.1 25.2
O2 Delivery Level Not Reportable
08/24/24 08/25/24 08/25/24
22:52 04:35 04:40
PT
INR
APTT 37.7 H 61.7 H
pH Cancelled
pCO2 Cancelled
pO2 Cancelled
HCO3 Cancelled
O2 Delivery Level Cancelled
08/25/24
05:24
PT
INR
APTT
pH 7.46 H
pCO2 40
pO2 124 H
HCO3 28.4 H
O2 Delivery Level 50%
[2024-08-25] MEDS: MIRALAX TUBE (07:48)
[2024-08-25] MEDS: PROTONIX IV 40 MG IV (07:52)
[2024-08-25] MEDS: NSS (PRESERVATIVE FREE) 10 ML IV (07:52)
[2024-08-25] MEDS: LASIX 80 MG IV (07:52)
[2024-08-25 08:54] LABS: Urine Squamous Cell 0-2 /LPF (Few)
[2024-08-25 08:55] LABS: Urine Amorphous Seen
[2024-08-25 08:57] LABS: Urine Red Blood Cell >100 /HPF (0-2)
[2024-08-25 08:59] LABS: Urine Bacteria Moderate (Negative)
--- NOTE | 2024-08-25 09:08 | W.PN.HOSP.TC ---
Today's Communication/Plan
-
Mechanical ventilation. Milrinone drip. Levophed drip. IV antibiotics. Heparin drip.
Assessment / Plan
Assessment / Plan
Physical exam:
General: Acutely and critically ill
HEENT: Normocephalic, Atraumatic and Moist Mucous Membranes
Respiratory: Clear to Auscultation; Negative Wheezes, Rales or Rhonchi
Cardiac: Regular Rhythm and S1/S2
GI: Soft, Nontender and Nondistended
Musculoskeletal: No Clubbing, No Cyanosis. Bilateral lower extremity edema
Neuro: Intubated and sedated
Psych: Calm
A/P:
Cardiorespiratory arrest precipitated by hypoxia:
PEA presentation with with CPR and epi x 5 and ROSC
Cardiac cath with no obstructive CAD
Cardiology consulted
Discussed with at bedside
Acute hypoxic respiratory failure:
Continue mechanical ventilation
Pulmonary/manager operations consulted
On Versed drip and fentanyl drip
Acute HFrEF (nonischemic cardiomyopathy)--> Takotsubo versus tachycardia induced cardiomyopathy:
Echocardiogram with EF of 20-25%
Moderate mitral regurgitation and mild tricuspid regurgitation
On Lasix 80 mg IV daily
Cardiogenic shock:
Cath with elevated right left-sided filling pressures with reduced cardiac output; also significant elevated systemic vascular resistance.
Cardiology on board
On milrinone
Paroxysmal atrial fibrillation/atrial flutter:
Status post in-clinic cardioversion converted to normal sinus rhythm
Status post ablation in [place] last month
On heparin drip
Fever likely aspiration pneumonia:
Cultures pending
Initially on IV Rocephin/Doxy but switched to IV Zosyn
Hypertension:
Hold antihypertensives and resume when able to take oral
Hyperlipidemia:
Hold statins and resume when able to take oral
Gout:
Hold allopurinol and resume when able to take oral
DVT prophylaxis:
On heparin drip
CODE STATUS:
Full code
Total Critical Care Time__40___ minutes. I was immediately available to the patient and staff. I personally examined, reviewed labs, diagnostic images/reports, interpretations, treatment plans, discussed patient care with other providers and
family or caregivers (if patient is unable to make decisions), entered orders as appropriate and documented the medical record.
Anticipated Discharge: > 48 hours
Subjective/Interval History
-
Date of Service: August 25, 2024
Patient on the ventilator. On pressors.
Objective Data
-
Labs:
Laboratory Results
08/24/24 08/24/24 08/24/24
20:16 22:52 23:31
WBC
Hgb
Hct
Plt Count
APTT 37.7 H
HCO3
Sodium 139
Potassium 4.1
Chloride 100
Carbon Dioxide 25
BUN 23 H
Creatinine 1.1
Glucose 117 H 131 H
Calcium 8.2 L
Total Bilirubin 1.4 H
AST 35
ALT 39
Alkaline Phosphatase 74
08/25/24 08/25/24 08/25/24
00:00 04:35 04:40
WBC 10.9 H
Hgb 13.1 D
Hct 40.2
Plt Count 186
APTT 61.7 H
HCO3 Cancelled
Sodium Cancelled 134 L
Potassium Cancelled 4.0
Chloride Cancelled 95 L
Carbon Dioxide Cancelled 26
BUN Cancelled 24 H
Creatinine Cancelled 1.1
Glucose Cancelled 128 H
Calcium Cancelled 7.7 L
Total Bilirubin Cancelled 1.3
AST Cancelled 29
ALT Cancelled 34
Alkaline Phosphatase Cancelled 67
08/25/24 08/25/24 08/25/24
05:24 08:42 11:30
WBC
Hgb
Hct
Plt Count
APTT Pending
HCO3 28.4 H
Sodium Pending
Potassium Pending
Chloride Pending
Carbon Dioxide Pending
BUN Pending
Creatinine Pending
Glucose Pending
Calcium Pending
Total Bilirubin Pending
AST Pending
ALT Pending
Alkaline Phosphatase Pending
08/25/24
12:00
WBC
Hgb
Hct
Plt Count
APTT
HCO3
Sodium Pending
Potassium Pending
Chloride Pending
Carbon Dioxide Pending
BUN Pending
Creatinine Pending
Glucose Pending
Calcium Pending
Total Bilirubin Pending
AST Pending
ALT Pending
Alkaline Phosphatase Pending
Vital Signs:
Vital Signs
Temp Pulse Resp BP Pulse Ox
100.9 F H 96 20 107/72 95
08/25/24 08:00 08/25/24 09:00 08/25/24 09:00 08/25/24 09:00 08/25/24 09:00
I&O
08/24/24 08/25/24 08/26/24
06:59 06:59 06:59
Intake Total 900.4 / 976.7 217.7 / 217.7
Output Total 2580 / 2630 735 / 735
Balance -1679.6 / -1653.3 -517.3 / -517.3
[2024-08-25 09:09] LABS: Lactic Acid 1.1 mmol/L (0.7-2.0)
[2024-08-25 09:27] LABS: ALT (SGPT) 34 U/L (0-50); AST (SGOT) 28 U/L (17-59); Albumin 3.5 g/dl (3.5-5.0); Alkaline Phosphatase 70 U/L (38-126); Blood Urea Nitrogen 25 mg/dl (9-20); Calcium 8.1 mg/dl (8.4-10.2); Carbon Dioxide 30 mmol/L (22-30); Chloride 100 mmol/L (98-107); Estimated Creatinine Clearance 87 ml/min; Glucose 132 mg/dl (70-99); Potassium 3.7 mmol/L (3.5-5.1); Sodium 139 mmol/L (135-145); Total Bilirubin 1.5 mg/dl (0.2-1.3); Total Protein 5.6 g/dl (6.3-8.2); eGFR > 60.00
[2024-08-25 10:43] LABS: Mixed Venous O2 Saturation 79.9 %
[2024-08-25] MEDS: NSS 250 IV ×2 (10:59→13:31)
[2024-08-25] MEDS: ZOSYN 50 IV ×3 (11:58→23:33)
[2024-08-25] MEDS: CALCIUM GLUCONATE 100 IV (11:59)
[2024-08-25 12:02] LABS: APTT 79.5 Sec (23.4-35.0)
[2024-08-25 12:05] LABS: ALT (SGPT) 32 U/L (0-50); AST (SGOT) 27 U/L (17-59); Albumin 3.4 g/dl (3.5-5.0); Alkaline Phosphatase 65 U/L (38-126); Blood Urea Nitrogen 25 mg/dl (9-20); Calcium 7.9 mg/dl (8.4-10.2); Carbon Dioxide 29 mmol/L (22-30); Chloride 98 mmol/L (98-107); Estimated Creatinine Clearance 87 ml/min; Glucose 131 mg/dl (70-99); Potassium 3.4 mmol/L (3.5-5.1); Sodium 137 mmol/L (135-145); Total Bilirubin 1.6 mg/dl (0.2-1.3); Total Protein 5.5 g/dl (6.3-8.2); eGFR > 60.00
[2024-08-25 12:07] LABS: Glucose - Point of Care 125 mg/dl (70-99)
--- NOTE | 2024-08-25 12:32 | W.PN.CARDCBS ---
Today's Communication / Plan
-
Patient was seen at bedside in the ICU yesterday afternoon around 3:50 PM. Detailed history was obtained and confirmed as below from . Phone discussions were also had with ronen who is a interactive multimedia designer at [facility] in
[place]. Briefly, patient is a 69-year-old gentleman with past medical history of hypertension, hyperlipidemia, morbid obesity, chronic sinus infections, gout, paroxysmal A-fib status post ablation procedure in [place] on July 22, 2024 on
chronic oral anticoagulation with Xarelto, last dose evening before presentation and propafenone, last dose this morning who presented with acute onset of shortness of breath found to be hypoxic complicated by PEA arrest in the setting of hypoxia
needing urgent intubation and ROSC was obtained after 5 rounds of ACLS with echocardiogram at bedside concerning for severe global hypokinesis, LVEF of about 15% on visual estimation, no significant pericardial effusion, no significant valvular
abnormalities with increasing pressor requirements.
1. Patient is status post left and right heart catheterization yesterday showing significantly elevated right and left-sided filling pressures with reduced cardiac output. No obstructive coronary artery disease was noted with findings consistent
with a nonischemic cardiomyopathy, possibly Takotsubo cardiomyopathy versus tachycardia induced cardiomyopathy.
2. Patient was initiated on low-dose milrinone with attempt of weaning of Levophed with close monitoring of lab work every 4-6 hours. Thankfully so far there has not been any evidence of acute kidney or liver injury with normal lactate levels.
His pressor requirements are coming down and this morning he is down to Levophed of 8.
3. He is diuresing well with 80 mg of IV Lasix. Given significant output, we will back off on IV Lasix and attempt 20mg daily starting tomorrow morning depending on his response we will reassess need for higher dose. Keep electrolytes repleted
with potassium over 4 and magnesium over 2.
4. Patient is status post cardioversion from atrial flutter to normal sinus rhythm this morning which he is maintaining. Continue IV heparin for now until definite anticoagulation given he is post cardioversion. Patient on Xarelto at home which is
on hold.
5. Continue to wean oxygen and vent per primary team.
6. Fever noted this morning at 100.9. Defer to primary team in regards to infectious workup and antibiotic management for now.
7. Patient continues to still remain critically ill but overall stable.
Discussed plan above with primary team, account consultant, nursing at bedside as well as and nephew.
Nadege Hernandez MD, [facility], [facility]
Impression / Plan
-
Primary Healthcare Science Specialist: in [place]
Assessment:
Presentation with SOB
PEA arrest with CPR and epi x5 with ROSC
Hypoxemic RF, intubated in ER 08/24/24
B/L PNA vs Acute CHF
LBBB
Atrial flutter
PAF s/p ablation procedure in [place] 07/22/24
Chronic OAC with xarelto
Post procedure pericarditis
HTN
HLD
Gout
Chronic sinus infections/issues
ECHO pre ablation in [place]: EF preserved, no significant valvular disease, no diastolic dysfunction
Progress Note - Healthcare Science Specialist
Subjective
Date of Service: August 25, 2024
Overall patient remained stable. Continues to be in sinus rhythm this morning.
Objective
Labs:
08/25/24 04:35
08/25/24 11:28
Labs
Hgb 13.1 g/dL (13.0-18.0) D 08/25/24 04:35
Hct 40.2 % (39.0-52.0) 08/25/24 04:35
Plt Count 186 10^3/uL (130-400) 08/25/24 04:35
PT 26.0 Sec (11.4-14.6) H 08/24/24 15:13
INR 2.33 08/24/24 15:13
APTT 79.5 Sec (23.4-35.0) H 08/25/24 11:28
Sodium 137 mmol/L (135-145) 08/25/24 11:28
Potassium 3.4 mmol/L (3.5-5.1) L 08/25/24 11:28
BUN 25 mg/dl (9-20) H 08/25/24 11:28
Creatinine 1.0 mg/dL (0.7-1.3) 08/25/24 11:28
Glucose 131 mg/dl (70-99) H 08/25/24 11:28
Troponins
08/24/24
11:32
Troponin I < 0.012
Vital Signs and I&O:
Vital Signs
Temp Pulse Resp BP Pulse Ox
100.9 F H 101 20 105/80 95
08/25/24 08:00 08/25/24 12:15 08/25/24 12:15 08/25/24 12:00 08/25/24 12:15
Vital Signs
Temp Pulse Resp BP Pulse Ox
100.9 F H 101 20 105/80 95
08/25/24 08:00 08/25/24 12:15 08/25/24 12:15 08/25/24 12:00 08/25/24 12:15
Intake & Output
08/23/24 08/24/24 08/25/24 08/26/24
06:59 06:59 06:59 06:59
Intake Total 900.4 / 976.7 753.7 / 753.7
Output Total 2580 / 2630 1880 / 1880
Balance -1679.6 / -1653.3 -1126.3 / -1126.3
Physical Exam
Physical Exam
On exam patient is intubated and sedated, moving all extremities when sedation is lowered, tachycardic, normal S1 and S2, no murmurs, rubs or gallops, distant heart sounds, elevated JVD, lungs are clear to auscultation anteriorly, abdomen is obese,
otherwise soft, nontender, nondistended, warm extremities with trace lower extremity edema.
--- NOTE | 2024-08-25 12:59 | W.PN.ANS.LIN ---
Anesthesia IV & A-Line Note
- IV/Arterial Line
Left Radial Arrow 20 (12/06)
Diagnosis: cardiac arrest
IV Line Comments: Uneventful Procedure
Allens test completed pre-procedure: Yes
A-Line Comments: Sterile technique as per standard protocol, Seldinger technique used, Ultrasound guided insertion, Biopatch applied
[2024-08-25] MEDS: KCL 100 IV (13:17)
--- NOTE | 2024-08-25 13:33 | CM ---
CM following re: discharge planning.
Reviewed pt's chart, met with pt and pt's spouse at bedside.
Pt is a 69 year old male, admitted with primary dx of Cardiac arrest, intubated on 08/24/21. Per Rounds meeting, pt remains critically ill, sedated, on pressors, on a ventilator.
Per spouse, she and the pt lives in [facility], have 2 supportive children and they are Medical Doctors in [facility] and they will be here probably this evening. Per spouse, she and the pt came to [facility] on visitor visa to visit pt's
mother who is a resident of [facility]. 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
D/C plan: Uncertain at this time and will depend on pt's progress.
CM will follow with discharge plan updates as hospitalization progresses
[2024-08-25] MEDS: SUBLIMAZE 50 MCG IV ×6 (13:50→23:32)
[2024-08-25 14:07] LABS: Glycohemoglobin (HgbA1c) 5.9 % (4.0-5.6)
[2024-08-25 14:57] LABS: B.E. 7.3 mmol/L; HCO3 29.3 mmol/L (21-28); O2 Saturation % 97.9 % (94-98); PCO2 32 mmHg (35-48); PO2 82 mmHg (83-108); pH 7.57 (7.35-7.45)
[2024-08-25 15:14] LABS: Magnesium 1.5 mg/dl (1.6-2.3)
--- NOTE | 2024-08-25 16:27 | W.PN.UPDATE ---
Update Note
Progress Note Update
Cardiology update note
Checked back in on patient. Overall continues to remain stable thankfully. Levophed recently weaned off completely. Oxygen down to FiO2 of 60% and PEEP of 8. He continues to diurese well.
PA saturations have improved more than 65 with cardiac indices more than 3. We will trial weaning back on the milrinone to 0.125 mcg with hopes that we can turn it off tomorrow and if he continues to remain stable work towards taking out the
Currie-Fer catheter and subsequently adding goal-directed medical therapy for nonischemic cardiomyopathy.
Radial arterial line was obtained by anesthesia. We held heparin and once ACT was less than 170 ms, right common femoral arterial 6 [place] sheath was pulled with manual pressure held and successful hemostasis.
We will plan on resuming heparin drip without a bolus in 5 hours given recent cardioversion to minimize risk for bleeding.
Updated family at bedside as well as discussed plan with nursing.
Nadege Hernandez MD, FACC, [facility]
[2024-08-25] MEDS: MAGNESIUM SULFATE 50 IV (16:38)
--- NOTE | 2024-08-25 17:30 | PTCARENOTE ---
0700- Rec'd care of patient. Patient intubated and sedated. BIS monitor on for goal 40-60. Versed and Fentanyl infusing (see MAR). Clarified with Card Maker. Plan for SAT. Sedation weaned. Patient opening eyes. PERRLA +3mm. Following commands.
MAEx4. NSR with BBB on tele monitor. +1 pitting edema in b/l LE. Palpable pulses. RIJ cordis with Levophed/Milrinone. Titrating Levo for MAP>65. Right femoral ese in place. All lines leveled and zeroed. C.O./C.I. results relayed to Edge Burnisher Uppers.
#8 ett. Positioned on the left, 26cm @ the lip. A/C 20/500/12/70%. Lung sounds coarse with scattered crackles throughout. 80 IV Lasix administered as ordered. Hendrix in place for critical I/O. Kasey output. Urine output 50 cc's prior to Lasix. +BS.
No BM. NGT unable to be placed yesterday. Strict NPO maintained. Heparin infusing through peripheral INT. PTT due at 1130. at bedside. All questions answered.
1030- Edge Burnisher Uppers contacted about urine output s/p 80 IV Lasix. Output from [id number] 1335 cc's. MAP <65, Levophed requirements increasing. CVP 2. 250 cc bolus ordered.
1200- Patient reassessed. Minor changes. Patient more alert. Versed gtt discontinued at 1139. Lungs sounds improved. Diminished posteriorly, coarse anteriorly. PEEP 8, FiO2 60%. Urine output down to 220/hr. Calcium gluconate infusing for ionized Ca
level of 1.06. 0800 BMP resulted. K 3.4. Card Maker notified. Order for 40 meq IV repletion obtained.
1230- Edge Burnisher Uppers requesting femoral line to be removed and radial ese be placed. OBSTETRICIAN GYNECOLOGIST contacted. Left radial ese placed. Zeroed and transduced.
1300- Rhythm change noted on tele monitor. EKG obtained. ST with PACs and PVCs. Results relayed to Edge Burnisher Uppers. PADP trending down to 8-9. Additional 250 cc bolus ordered. Milrinone gtt rate decreased to 0.125mcg.
1350- Patient coughing and complaining cp. Explained to patient that chest compressions were given yesterday during PEA arrest. RASS +1. CPOT 5. Fent bolus administered and rate increased. Endotracheal suctioning provided. Moderate amount of varela,
thick secretions suctioned.
1426- Heparin gtt placed on hold per Edge Burnisher Uppers. On hold for planned removal of right femoral ese.
1500- ABG results relayed to Card Maker. Rate decreased from 20 to 16. RT notified.
1600- Right groin sheath pulled by animal laboratory helper @ 1602. Levophed off at 1618. Edge Burnisher Uppers at bedside. Plan of care discussed. Repeat mixed VBG @ 1800. laboratory mechanic helper RNs at bedside maintaining pressure on right groin site. Manual pressure released at 1623.
Dressing c/d/i. Heparin gtt to remain off for 5 hours. Pulse ox 90-91%. RT and Card Maker notified. FiO2 increased to 80%. Magnesium results 1.5. 2 gram IV Magnesium ordered and infusing.
[2024-08-25 17:37] LABS: Glucose - Point of Care 116 mg/dl (70-99)
[2024-08-25 18:23] LABS: Mixed Venous O2 Saturation 72.2 %
[2024-08-25 21:18] LABS: B.E. 4.2 mmol/L; HCO3 28.4 mmol/L (21-28); O2 Saturation % 98.1 % (94-98); PCO2 40 mmHg (35-48); PO2 82 mmHg (83-108); pH 7.46 (7.35-7.45)
[2024-08-25 21:21] LABS: Mixed Venous O2 Saturation 74.3 %
--- NOTE | 2024-08-25 21:48 | PTCARENOTE ---
On assessment pt opens eyes to voice, follows basic commands, RASS -1, all lines leveled and zeroed, SR/ST with BBB/PVCs/PACs, Scheiring paged and made aware of mixed VBG, C.O and C.I results, MD to place VBG recheck at 2200 and 0600, also
ordered to restart hep gtt at 2130, BROACH GRINDER made aware as well. #8 ETT 26 at the lip, thick varela secretions with suctioning, NPO, arzate in place, family at bedside and call gr in reach
[2024-08-25 21:54] LABS: Calcium 8.2 mg/dl (8.4-10.2); Carbon Dioxide 29 mmol/L (22-30); Chloride 100 mmol/L (98-107); Magnesium 2.2 mg/dl (1.6-2.3); Potassium 3.7 mmol/L (3.5-5.1); Sodium 137 mmol/L (135-145)
[2024-08-25] MEDS: KCL 160 MEQ IV (22:25)
[2024-08-26] VITALS (10 sets, daily range): BP systolic 107–139; BP diastolic 52–90; BMI 32.1
[2024-08-26] MEDS: PRIMACOR 20 MG 100 IV ×2 (00:25→23:33)
[2024-08-26] MEDS: LEVOPHED 258 MG IV (00:25)
--- NOTE | 2024-08-26 00:25 | W.PN.UPDATE ---
Update Note
Progress Note Update
08/26/24
0015- Patient self extubated, immediately was bagged with ambu bag saturating 97-98%. Anesthesia was STAT paged for re-intubation. Patient tolerated re intubation without incident. Chest xray obtained to confirm placement. Respiratory therapist
placed back on ventilator settings prior to extubation, increased FIO2 at 100%, will titrate down as tolerated was previously at 80% prior to extubation and 8 of peep. Family at bedside, son and was updated, all questions answered.
--- NOTE | 2024-08-26 00:25 | W.PN.ANESINT ---
Anesthesia Intubation Note
- Intubation Note
Intubation Note:
Diagnosis: self extubation-- respiratory distress
Blade: Glidescope 4
Tube Size: 8.0
Depth: 23 cm @ lip
Side Taped: right
Drugs Used: propofol-100mg succs- 100mg
Grade View: 1
EtCO2 Present: yes
Atraumatic: yes
Attempts: 1
Insertion Start and Stop Time: 00:10 -- 00:14
SaO2 Pre: 89
SaO2 Post: 98
Glidescope Used: yes
Other Airway Adjustments: none
Pre-Oxygenated: yes
Portable Chest X-Ray: yes
RSI: yes
Suctioned: no
Bilateral Breath Sounds Confirmed: yes
Vent Settings:
Settings per ___Attending Physician
[2024-08-26] MEDS: VERSED 2 MG IV (00:34)
[2024-08-26] MEDS: NOVOLOG FLEXPEN-LOW RESISTANCE SC ×3 (00:47→12:35)
[2024-08-26 00:49] LABS: Glucose - Point of Care 117 mg/dl (70-99)
--- NOTE | 2024-08-26 01:19 | PTCARENOTE ---
Pt self extubated around 0000, pt bagged immediately, unable to protect airway, PAPERHANGER APPRENTICE and respiratory at bedside, anesthesia STAT called and reintubated pt without difficulty, family at bedside and spoke to PAPERHANGER APPRENTICE, pt reoriented to situation, able to
follow simple commands.
[2024-08-26] MEDS: SUBLIMAZE 100 IV ×4 (01:52→19:46)
[2024-08-26] MEDS: HEPARIN 25000 UNITS/250 ML IV ×2 (02:28→19:48)
[2024-08-26] MEDS: ATIVAN 2 MG IV (03:20)
--- NOTE | 2024-08-26 03:30 | PTCARENOTE ---
elevated PAP noted, PRODUCTION ASSISTANT and marketing community liaison cardiology MD coronel texted and made aware, CT surgery PA at bedside to assess pt, pt started going back and forth into SB then ST with PACs, EKG ordered and completed, 0600 labs drawn. family remains at bedside.
[2024-08-26 04:03] LABS: B.E. 4.9 mmol/L; HCO3 29.2 mmol/L (21-28); O2 Saturation % 95.2 % (94-98); O2 Therapy VENT; PCO2 41 mmHg (35-48); PO2 65 mmHg (83-108); pH 7.46 (7.35-7.45)
[2024-08-26 04:08] LABS: Mixed Venous O2 Saturation 65.7 %
[2024-08-26 04:11] LABS: % Basophils 0.4 % (0-2); % Immature Granulocytes 0.4 % (0-0.5); % Lymphocytes 15.1 % (20.5-51.1); % Monocytes 8.6 % (1.7-9.3); % Neutrophils 73.5 % (42.2-75.2); Absolute Eosinophils 0.2 10^3/uL (0-0.7); Absolute Lymphocytes 1.3 10^3/uL (1.2-3.4); Absolute Monocytes 0.7 10^3/uL (0.1-0.6); Absolute Neutrophils 6.2 10^3/uL (1.4-6.5); Hematocrit 33.5 % (39.0-52.0); Mean Corp Hgb Conc. 32.8 g/dL (33.0-37.0); Mean Corpuscular Hgb 29.5 pg (27.0-31.0); Mean Corpuscular Volume 89.8 fL (80.0-94.0); Mean Platelet Volume 9.8 fL (7.4-10.4); Nucleated Red Blood Cells % 0 % (-); Platelet Count 141 10^3/uL (130-400); Red Blood Cell Count 3.73 10^6/uL (4.70-6.10); Red Cell Dist. Width 14.3 % (11.5-14.5); White Blood Cell Count 8.5 10^3/uL (4.8-10.8)
[2024-08-26 04:20] LABS: APTT 73.3 Sec (23.4-35.0)
[2024-08-26 04:31] LABS: Blood Urea Nitrogen 28 mg/dl (9-20); Calcium 7.8 mg/dl (8.4-10.2); Carbon Dioxide 30 mmol/L (22-30); Chloride 101 mmol/L (98-107); Estimated Creatinine Clearance 96 ml/min; Glucose 120 mg/dl (70-99); Magnesium 2.2 mg/dl (1.6-2.3); Potassium 3.8 mmol/L (3.5-5.1); Sodium 137 mmol/L (135-145); eGFR > 60.00
[2024-08-26] MEDS: ZOSYN 50 IV ×3 (05:19→17:42)
[2024-08-26 05:26] LABS: Glucose - Point of Care 116 mg/dl (70-99)
[2024-08-26] MEDS: KCL 160 MEQ IV (07:09)
[2024-08-26] MEDS: NSS (PRESERVATIVE FREE) 10 ML IV (07:29)
[2024-08-26] MEDS: PROTONIX IV 40 MG IV (07:29)
[2024-08-26] MEDS: SUBLIMAZE 50 MCG IV ×4 (07:30→22:47)
--- NOTE | 2024-08-26 07:33 | W.PN.INTV ---
Today's Communication / Plan
Recommendations
Events noted-self extubated-reintubated
Continue diuresis
Replace electrolytes
Amiodarone initiated
Not ready for spontaneous breathing trial
Antibiotics
Milrinone continues
Heparin drip continues
Assessment
-
69-year-old male with a history of cardiac ablation 4 to 6 weeks ago in [place] recently coming to the [facility] 2 weeks ago presented with shortness of breath with subsequent cardiac arrest in the emergency room-PEA status post immediate CPR, epi
x 5 with ROS within 15 minutes requiring intubation-subsequent rhythm a flutter with moving extremities-command and control officer consulted for ventilator/critical care management 08/24/2024.
Cardiac arrest
Intubated 08/24/2024-
Extubated
CHF--reduced EF
Mrqibscltwybku-gwlmfdqkych-rwodlwzqmua induced or Takotsubo
Cardiogenic shock-decreased MAP, increased SVR, decreased cardiac index, increased CVP
Recent cardiac ablation in [place] 4-6 weeks ago
Mild leukocytosis
Pneumonia-aspiration suspected
Diffuse bilateral interstitial and alveolar caebtzooqwm-POU-ogeinbm EF versus diffuse pneumonia
Conditions present prior to admission:
Arrhythmia status post cardiac [facility] [place]
Obstructive sleep apnea
Plan
Continues to be critically ill sedated on pressors on a ventilator
Ventilator settings reviewed
Ventilator adjusted-minute ventilation
Wean FiO2 and then PEEP-reviewed with HEALTH COACH
ABG 08/25/2024-40/124/7.46
Monitor airway pressures
Chest x-ray 08/25/2024-CHF improved from prior, small left pleural effusion suspected as well as left lower lobe airspace disease
Chest x-ray 08/26/2024-no change in CHF, ET tube in good position
VAP prevention protocol
Sedation vacations continue
Decrease sedation to light sedation from deep sedation
Troponin negative
Cardiology evaluation ongoing-correspondence reviewed and spoke to them personally on multiple occasions
Arrhythmia monitoring and rate control
Diuresis continues as tolerated
Monitor PA pressures-PA diastolic improved with diuresis
Monitor renal function, electrolytes, intake/output, lower extremity edema and weight
Replace electrolytes as needed
Echocardiogram 08/24/2024-EF 20-25%, severe global hypokinesis, diastolic function intermediate, moderate mitral regurgitation, PA systolic 20-25
Cardiac catheterization 08/24/2024-no obstructing coronary artery disease, significant elevated right sided filling pressures-RA 21, PA 48/36, PCWP-28, cardiac index 1.56
Milrinone continues
Wean norepinephrine
Amiodarone initiated
Cultures reviewed
Urine culture-pending
Repeat sputum culture-pending
Blood cultures-no growth
Sputum culture 08/24/2024-usual respiratory donny
MRSA screen negative
COVID negative
Trend temperature and leukocytosis
Procalcitonin 0.39-mildly elevated
Empiric antibiotics-ceftriaxone and doxycycline initially-with ongoing temperatures and possible aspiration-ceftriaxone changed to Zosyn
DVT prophylaxis-on heparin drip-outpatient Xarelto
GI prophylaxis if on ventilator and hypotensive
Early nutrition-unable to place nasogastric tube-if not extubated in the next 24-48 hours then GI/nasogastric tube placement may be indicated
Early mobilization/bedside range of motion
Dr. Arreguin reviewed with son-vascular surgeon from [facility] 08/26/2024-attended multidisciplinary rounds
Dr. Arreguin reviewed with 08/25/2024 at the bedside and again during multidisciplinary rounds including updating current clinical status and plan for ongoing supportive care
Dr. Arreguin reviewed with Dr. Fred Gilbert [phone]-patient's nephew who is a mold designer at [facility] on 08/24/2024
Critical care statement: A total of 45 minutes of critical care time was provided for this patient today. This includes management of unstable vital signs, evaluation of the patient at bedside, reviewing the patient's pertinent medical records
including radiographs, ventilator management, spontaneous breathing trial management, pressor management, microbiology, laboratory evaluations, and discussion with primary team, consultants, pharmacy, nutrition, physical therapy, case management,
charge nurse, critical care nursing, and respiratory therapy.
Diagnostic data:
Chest x-ray 08/24/2024-diffuse pulm edema versus diffuse pneumonia
Subjective Dataa
Subjective Data
Date of Service:
Date of Service: August 26, 2024
Chief Complaint: Audio Visual Director Follow Up, Pulmonary Follow Up and Vent Management Follow Up
Subjective:
Patient pulled out endotracheal tube and required reintubation, nursing reports he was hypoxemic, PA pressures were up, patient now sedated and review of systems was unobtainable
Review of Systems
General: Other (Per HPI)
Objective Data
Data Reviewed
Vital Signs / I&O / Oxygen:
Vital Signs
Temp Pulse Resp BP Pulse Ox
100.3 F 94 18 109/69 93
08/26/24 04:33 08/26/24 06:42 08/26/24 06:42 08/26/24 02:00 08/26/24 06:42
Intake and Output
08/25/24 08/26/24 08/27/24
06:59 06:59 06:59
Intake Total 900.4 / 976.7 1981.3 / 2112.2 130.9 / 130.9
Output Total 2580 / 2630 2960 / 3005 45 / 45
Balance -1679.6 / -1653.3 -978.7 / -892.8 85.9 / 85.9
SaO2 [A/C] 93
SaO2 93
Nasal Cannula flow liters per 6
minute
Physical Exam
General: Respiratory Distress (n) and Comfortable
HEENT: Normocephalic, Anicteric and Moist Mucous Membranes
Cardiovascular: Regular Rhythm and Murmur (n)
Respiratory: Wheeze (n), Crackles, Rhonchi, Non-Labored Respirations, Accessory Resp Muscle Use (n), Stridor (n) and ET Tube
GI: Soft, Non Distended and Non Tender
Neurology: No Motor Deficits and Other (Alert and appropriate when sedation lightened)
Skin: Warm, Good Color, Cyanosis (n), Jaundice (n) and Rash (n)
Labs/Micro/Reports
Lab Data
08/26/24 03:55
08/26/24 03:55
Laboratory Results
08/25/24 08/25/24 08/25/24
: 14:37 17:30
APTT 79.5 H Cancelled
pH 7.57 H
pCO2 32 L
pO2 82 L
HCO3 29.3 H
O2 Delivery Level Not Reportable
08/25/24 08/26/24
21: 03:55
APTT 73.3 H
pH 7.46 H 7.46 H
pCO2 40 41
pO2 82 L 65 L
HCO3 28.4 H 29.2 H
O2 Delivery Level Vent
Microbiology
08/25/24 04:32 Blood/Venous Blood Culture - Preliminary
No Growth in 24 hours- Final report to follow
08/25/24 04:32 Blood/Venous Blood Culture - Preliminary
No Growth in 24 hours- Final report to follow
08/24/24 15:18 Endotracheal Respiratory Culture - Preliminary
Usual Respiratory Donny
08/24/24 15:18 Endotracheal Gram Stain - Preliminary
08/25/24 04:32 Tracheal Aspirate Gram Stain - Preliminary
--- NOTE | 2024-08-26 07:39 | W.PN.CARDCBS ---
Addendum entered and electronically signed by Marty Arnold MD 08/26/24 09:03:
I saw and examined the patient.
The Road Maker's note was reviewed and I agree with the note.
Comment:
GEN: No distress, intubated/sedated
HEENT: supple, anicteric, mmm, ET
LUNGS: dec BS at bases
CV: Reg, S1/S2, 1/6 syst LSB, S3+
ABD: soft, BS+, NT/ND
EXT: No edema
NEURO: Gross non-focal
SKIN: No rash
Plan:
He remains in cardiogenic shock status postcardiac arrest with nonischemic myopathy. He remains in sinus rhythm today but is having frequent ectopy with premature beats. Will start IV amiodarone to try to maintain sinus rhythm.
PA pressures remain 58/25. I suspect he is still volume overloaded. Will give Lasix 60 mg IV now then reassess cardiac output/index and PA pressure in 3 to 4 hours.
Continue Levophed for blood pressure support. Would remain on milrinone 0.125 mcg kilogram per minute for next 24 hours
Reviewed events of last night where he self extubated. Would continue ventilatory support. Wean FiO2 as tolerated. Continue broad-spectrum antibiotics for possible pneumonia.
Discussed with physician son at bedside.
Would place Dobbhoff tube today for oral medications.
Once out of cardiogenic shock would eventually start carvedilol and Entresto. Will also need eventual SLG 2 inhibitor.
CC time 33 min
Original Note:
Today's Communication / Plan
-
increase diuresis
continue milrinone @0.125 today
wean levo as able
continue IV heparin
consider IV amiodarone
Impression / Plan
-
Primary Circuit Tester: in [place]
Assessment:
Presentation with SOB
PEA arrest with CPR and epi x5 with ROSC
Hypoxemic RF, intubated in ER 08/24/24
B/L PNA
Acute HFrEF
Cardiogenic shock
NICM, EF 20-25%
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
LBBB
Atrial flutter s/p CV 08/24/24
PAF s/p ablation procedure in [place] 07/22/24
Chronic OAC with xarelto
Post procedure pericarditis
HTN
HLD
Gout
Chronic sinus infections/issues
ECHO pre ablation in [place]: EF preserved, no significant valvular disease, no diastolic dysfunction
ECHO 08/24/24: EF 20 to 25%, severe global hypokinesis, marked paradoxical septal motion, moderate MR, mild TR, PAP 20 to 25 mmHg, pleural effusion present
Plan:
-Patient presented with shortness of breath. He had PEA arrest, felt to be secondary to hypoxic respiratory failure requiring intubation in ER as well as CPR and epi x 5 with ROSC. With ROSC, rhythm was a flutter with RVR.
-Underwent left and right heart cath urgently on 08/24/2024 with evidence of cardiogenic shock, cardiac index 1.6 and SVR 1700. He was diuresed aggressively and started on milrinone
-He had good response to diuresis, levo was weaned off, and milrinone was weaned to 0.125 on 08/25. Lasix was decreased to 20 mg IV daily for today.
-Unfortunately overnight, patient self extubated and required reintubation. Upon reintubation he had higher oxygen requirements, PAP more elevated at 42/20, and required reinitiation of levo, which remains on at present. Cardiac index 2.6. remains
with swan in place, pulled back 4cm this AM with improved tracings. continue milrinone @0.125
-Chest x-ray images reviewed by me, awaiting official read. Would increase diuresis for today and follow. Cr stable at 0.9
-Remains in sinus rhythm with intermittent LBBB and ectopy. Consider for IV amiodarone
-Continue IV heparin given cardioversion 08/24
-Follow fever curve. Continue antibiotics per primary service
-Discussed with nursing
-Discussed with patient's son who is a vascular surgeon at bedside.
Progress Note - Circuit Tester
Subjective
Date of Service: August 26, 2024
intubated, sedated
Objective
Labs:
08/26/24 03:55
08/26/24 03:55
Labs
Hgb 11.0 g/dL (13.0-18.0) L 08/26/24 03:55
Hct 33.5 % (39.0-52.0) L 08/26/24 03:55
Plt Count 141 10^3/uL (130-400) D 08/26/24 03:55
PT 26.0 Sec (11.4-14.6) H 08/24/24 15:13
INR 2.33 08/24/24 15:13
APTT 73.3 Sec (23.4-35.0) H 08/26/24 03:55
Sodium 137 mmol/L (135-145) 08/26/24 03:55
Potassium 3.8 mmol/L (3.5-5.1) 08/26/24 03:55
BUN 28 mg/dl (9-20) H 08/26/24 03:55
Creatinine 0.9 mg/dL (0.7-1.3) 08/26/24 03:55
Glucose 120 mg/dl (70-99) H 08/26/24 03:55
Troponins
08/24/24
11:32
Troponin I < 0.012
Vital Signs and I&O:
Vital Signs
Temp Pulse Resp BP Pulse Ox
100.2 F 94 18 109/69 93
08/26/24 07:34 08/26/24 06:42 08/26/24 06:42 08/26/24 02:00 08/26/24 06:42
Vital Signs
Temp Pulse Resp BP Pulse Ox
100.2 F 94 18 109/69 93
08/26/24 07:34 08/26/24 06:42 08/26/24 06:42 08/26/24 02:00 08/26/24 06:42
Intake & Output
08/23/24 08/24/24 08/25/24 08/26/24
07:59 07:59 07:59 07:59
Intake Total 976.7 / 1053.0 2035.9 / 2034.9
Output Total 2630 / 2680 2955 / 2955
Balance -1653.3 / -1627.0 -919.1 / -919.1
Physical Exam
Physical Exam
GEN: No distress, intubated
HEENT: supple, mmm
LUNGS: Rhonchi B/L, no wheezes
CV: Irreg and tachy, S1/S2, no murmur
ABD: soft, BS+, NT/ND
EXT: No cyanosis, clubbing, edema. 2+ dorsalis pedis pulses
NEURO: sedated
SKIN: Warm, pink, dry. No rash. [place] in place
--- NOTE | 2024-08-26 08:15 | PTCARENOTE ---
DR MATTHEW IN TO PULL BACK PA CATH TO 50
[2024-08-26 08:22] LABS: ACT-LR - POC 161 Seconds (116-155)
--- NOTE | 2024-08-26 08:55 | W.PN.HOSP.TC ---
Today's Communication/Plan
-
IV amiodarone drip. IV heparin drip. IV antibiotics. IV Lasix.
Assessment / Plan
Assessment / Plan
Physical exam:
General: Acutely and critically ill
HEENT: Normocephalic, Atraumatic and Moist Mucous Membranes
Respiratory: Clear to Auscultation; Negative Wheezes, Rales or Rhonchi
Cardiac: Regular Rhythm and S1/S2
GI: Soft, Nontender and Nondistended
Musculoskeletal: No Clubbing, No Cyanosis. Bilateral lower extremity edema
Neuro: Intubated and sedated but does follow simple commands
Psych: Calm
A/P:
Cardiorespiratory arrest precipitated by hypoxia:
PEA presentation with with CPR and epi x 5 and ROSC
Cardiac cath with no obstructive CAD
Cardiology consulted
Neurological status does not appear to have any post arrest bad sequela.
Discussed with and daughter at bedside today on 08/26
Acute hypoxic respiratory failure:
Continue mechanical ventilation
Pulmonary/wrap knitting machine operator consulted
On fentanyl drip
Acute HFrEF (nonischemic cardiomyopathy)--> Takotsubo versus tachycardia induced cardiomyopathy:
Echocardiogram with EF of 20-25%
Moderate mitral regurgitation and mild tricuspid regurgitation
On Lasix given 60 mg IV x 1 today and redose according to cardiac output index PA pressures and so on.
Cardiogenic shock:
Cath with elevated right left-sided filling pressures with reduced cardiac output; also significant elevated systemic vascular resistance.
Cardiology on board
On milrinone
Paroxysmal atrial fibrillation/atrial flutter:
Status post in-clinic cardioversion converted to normal sinus rhythm
Status post ablation in [place] last month
On heparin drip
While he is in normal sinus rhythm he is having frequent ectopies with PVCs so decided to start him on amiodarone drip.
Fever likely aspiration pneumonia:
Cultures pending but no growth so far
Continue IV Zosyn
WBC 12.3--> 8.5
Anemia:
Continue to monitor closely
Hyperglycemia:
Insulin sliding scale
Prediabetes range
Hemoglobin A1c 5.9
Hypertension:
Hold antihypertensives and resume when able to take oral
Hyperlipidemia:
Hold statins and resume when able to take oral
Gout:
Hold allopurinol and resume when able to take oral
DVT prophylaxis:
On heparin drip
CODE STATUS:
Full code
Total Critical Care Time__37___ minutes. I was immediately available to the patient and staff. I personally examined, reviewed labs, diagnostic images/reports, interpretations, treatment plans, discussed patient care with other providers and
family or caregivers (if patient is unable to make decisions), entered orders as appropriate and documented the medical record.
Anticipated Discharge: > 48 hours
Subjective/Interval History
-
Date of Service: August 26, 2024
Patient self extubated last night and reintubated. Tmax 100.3 Fahrenheit today. Alert on the vent.
Objective Data
-
Labs:
Laboratory Results
08/25/24 08/26/24 08/26/24
21:09 03:55 10:00
WBC 8.5
Hgb 11.0 L
Hct 33.5 L
Plt Count 141 D
APTT 73.3 H Pending
HCO3 28.4 H 29.2 H
Sodium 137 137
Potassium 3.7 3.8
Chloride 100 101
Carbon Dioxide 29 30
BUN 28 H
Creatinine 0.9
Glucose 120 H
Calcium 8.2 L 7.8 L
Vital Signs:
Vital Signs
Temp Pulse Resp BP Pulse Ox
100.2 F 104 19 107/64 94
08/26/24 07:34 08/26/24 08:15 08/26/24 08:15 08/26/24 08:00 08/26/24 08:15
I&O
08/25/24 08/26/24 08/27/24
06:59 06:59 06:59
Intake Total 900.4 / 976.7 1981.3 / 2112.2 258.1 / 258.1
Output Total 2580 / 2630 2960 / 3005 95 / 95
Balance -1679.6 / -1653.3 -978.7 / -892.8 163.1 / 163.1
[2024-08-26] MEDS: LASIX 60 MG IV (09:11)
[2024-08-26] MEDS: CORDARONE 518 MG IV (09:34)
[2024-08-26] MEDS: CORDARONE 103 MG IV (09:34)
--- NOTE | 2024-08-26 10:23 | PTCARENOTE ---
R nare dht placed with minimal difficulty. Once placed, ptt sent per protocol. xray confirming placement pending. Dr Sheets at bedside updating and daughter.
--- NOTE | 2024-08-26 10:41 | PTCARENOTE ---
fio2 decreased tp 80%
--- NOTE | 2024-08-26 11:05 | PTCARENOTE ---
Received call from Dr Garcia that he could not visualize ett on previous xray, but dht and pa cath were in good position. Wire removed from dht and repeat xray completed to confirm ett.
[2024-08-26] MEDS: MIRALAX 17 GRAMS TUBE (11:36)
[2024-08-26 12:01] LABS: Glucose - Point of Care 131 mg/dl (70-99)
--- NOTE | 2024-08-26 12:23 | CM ---
CM following re: dischargee planning.
Discussed in Rounds, reviewed pt's chart, met with pt. Pt's son who is MD arrived from [facility] and participated in Rounds meeting. Per Rounds meeting, pt remains intubated and sedated, on mechanical ventilation, continue supportive care.
Pt is from [facility], visits his mother who is a resident of [facility].
Pt's insurance information: [employer], [employer].
fax: [phone], Option 1
. Clinical can be faxed with Attn to: Cyndi Williamson.
Insurance information provided to admissions department.
D/C plan: Uncertain at this time and will depend on pt's progress.
CM will follow with discharge plan updates as hospitalization progresses
[2024-08-26 12:27] LABS: Carbon Dioxide 30 mmol/L (22-30); Chloride 97 mmol/L (98-107); Potassium 3.5 mmol/L (3.5-5.1); Sodium 138 mmol/L (135-145)
--- NOTE | 2024-08-26 12:36 | PTCARENOTE ---
Systems reviewed. Pt without complaint. Denies cp/sob/nausea. Pt having increased ectopy as he diureses. Repeat lytes drawn and sent as ordered. Repeat cardiac output completed. Fio2 has been weaned to 70%. Rodríguez Lunsford and Sudeep
tiger texted with updates. Orders for electrolyte replacement given.
[2024-08-26] MEDS: KCL ELIXIR 20 MEQ TUBE (13:19)
[2024-08-26] MEDS: KCL 100 IV (13:19)
--- NOTE | 2024-08-26 14:37 | PTCARENOTE ---
Pt has been intermittently anxious and telling family and staff he can't breathe. Pt has good b/s bilaterally, sats above 92% now on 60%, medicated with fentanyl bolus as charted
--- NOTE | 2024-08-26 16:56 | PTCARENOTE ---
Systems reviewed. Fine exp wheezing noted [place]. Fio2 now weaned to 50%. Repeat cardiac output sent to Dr Arnold who plans to order more lasix. Son back and updated. Pt assisted with range of motion. Pt keeps scratching at belly/nose.
Family reports pt is always itchy. Lotion applied to abdomen which pt said helped a little. Pt denies cp/sob/nausea/pain. No other changes noted.
[2024-08-26] MEDS: LASIX 40 MG IV (17:42)
[2024-08-26] MEDS: NOVOLOG FLEXPEN-LOW RESISTANCE 1 UNITS SC (17:52)
[2024-08-26 17:58] LABS: Glucose - Point of Care 116 mg/dl (70-99)
[2024-08-26 18:23] LABS: APTT 64.7 Sec (23.4-35.0)
[2024-08-26] MEDS: NON-FORMULARY ITEM 1 UNIT BOTH EYES (19:49)
[2024-08-26] MEDS: BENADRYL 25 MG IV (19:57)
[2024-08-26] MEDS: XOPENEX 0.63 MG INHALANT SOLUTION INH (20:31)
[2024-08-26 21:16] LABS: Carbon Dioxide 30 mmol/L (22-30); Chloride 94 mmol/L (98-107); Potassium 3.6 mmol/L (3.5-5.1); Sodium 135 mmol/L (135-145)
[2024-08-26] MEDS: KCL ELIXIR 40 MEQ TUBE (21:34)
--- NOTE | 2024-08-26 22:00 | PTCARENOTE ---
Pt continues to have increased ectopy. Repeat lytes drawn. K repleted per order. Pt tolerating vent settings satting at 94% pulse ox.
[2024-08-27] VITALS (7 sets, daily range): BP systolic 107–133; BP diastolic 71–82; BMI 31.7
[2024-08-27] MEDS: ZOSYN 50 IV ×5 (00:08→23:38)
[2024-08-27] MEDS: NOVOLOG FLEXPEN-LOW RESISTANCE SC ×5 (00:14→23:36)
[2024-08-27 00:25] LABS: Glucose - Point of Care 141 mg/dl (70-99)
[2024-08-27] MEDS: SUBLIMAZE 50 MCG IV ×6 (00:29→13:14)
[2024-08-27 01:12] LABS: APTT 82.4 Sec (23.4-35.0)
--- NOTE | 2024-08-27 01:20 | PTCARENOTE ---
Pt frequently suctioned via ETT for moderate amounts of thick varela colored sputum. PRN fent bolus administered by this RN for pain/discomfort related to ETT/sore throat.
[2024-08-27] MEDS: SUBLIMAZE 100 IV ×3 (03:43→16:59)
[2024-08-27] MEDS: CORDARONE 518 MG IV (03:48)
[2024-08-27 05:06] LABS: HCO3 30.2 mmol/L (21-28); O2 Saturation % 97.1 % (94-98); PCO2 37 mmHg (35-48); PO2 73 mmHg (83-108); pH 7.52 (7.35-7.45)
[2024-08-27 05:11] LABS: Mixed Venous O2 Saturation 97.7 %
[2024-08-27 05:18] LABS: % Basophils 0.2 % (0-2); % Eosinophils 2.2 % (0-6); % Immature Granulocytes 0.5 % (0-0.5); % Lymphocytes 13.1 % (20.5-51.1); % Monocytes 10.6 % (1.7-9.3); % Neutrophils 73.4 % (42.2-75.2); Absolute Eosinophils 0.2 10^3/uL (0-0.7); Absolute Lymphocytes 1.1 10^3/uL (1.2-3.4); Absolute Monocytes 0.9 10^3/uL (0.1-0.6); Absolute Neutrophils 5.9 10^3/uL (1.4-6.5); Hematocrit 34.3 % (39.0-52.0); Hemoglobin 11.8 g/dL (13.0-18.0); Mean Corp Hgb Conc. 34.4 g/dL (33.0-37.0); Mean Corpuscular Hgb 30.4 pg (27.0-31.0); Mean Corpuscular Volume 88.4 fL (80.0-94.0); Mean Platelet Volume 9.8 fL (7.4-10.4); Nucleated Red Blood Cells % 0 % (-); Platelet Count 147 10^3/uL (130-400); Red Blood Cell Count 3.88 10^6/uL (4.70-6.10); White Blood Cell Count 8.1 10^3/uL (4.8-10.8)
[2024-08-27 05:38] LABS: APTT 79.5 Sec (23.4-35.0)
[2024-08-27 05:41] LABS: Blood Urea Nitrogen 23 mg/dl (9-20); Calcium 7.7 mg/dl (8.4-10.2); Carbon Dioxide 31 mmol/L (22-30); Chloride 97 mmol/L (98-107); Estimated Creatinine Clearance 107 ml/min; Glucose 142 mg/dl (70-99); Potassium 3.5 mmol/L (3.5-5.1); Sodium 138 mmol/L (135-145); Triglycerides 137 mg/dl (10-149); eGFR > 60.00
[2024-08-27] MEDS: KCL ELIXIR 40 MEQ TUBE (06:01)
--- NOTE | 2024-08-27 06:25 | PTCARENOTE ---
40 meq of K elixir administered by this RN per order after morning labs, K was 3.5
--- NOTE | 2024-08-27 07:10 | W.PN.INTV ---
Today's Communication / Plan
Recommendations
Adjust ventilator
Follow ABG
Follow cultures
Empiric antibiotics
Continue diuresis
Potassium and magnesium supplements as needed
Not ready for spontaneous breathing trial
Reviewed with family
Assessment
-
69-year-old male with a history of cardiac ablation 4 to 6 weeks ago in [place] recently coming [facility] 2 weeks ago presented with shortness of breath with subsequent cardiac arrest in the emergency room-PEA status post immediate CPR, epi
x 5 with ROS within 15 minutes requiring intubation-subsequent rhythm a flutter with moving extremities-mechanical system technician consulted for ventilator/critical care management 08/24/2024.
Cardiac arrest
Intubated 08/24/2024-
Extubated
CHF--reduced EF
Zkxsvsdbonlawn-uidmvjgowrl-abtmrajzwdg induced or Takotsubo
Cardiogenic shock-decreased MAP, increased SVR, decreased cardiac index, increased CVP
Recent cardiac ablation in [place] 4-6 weeks ago
Mild leukocytosis
Pneumonia-aspiration suspected
Conditions present prior to admission:
Arrhythmia status post cardiac ablation July 2024-[place]
Obstructive sleep apnea
Plan
Remains critically ill sedated on pressors on a ventilator
Ventilator settings reviewed
Ventilator adjusted-minute ventilation decreased
Continue attempts at weaning FiO2 and then PEEP-reviewed with PRINTED CIRCUIT BOARDS LAMINATOR
ABG 08/27/2024--37/73/7.52
Monitor airway pressures
Chest x-ray 08/25/2024-CHF improved from prior, small left pleural effusion suspected as well as left lower lobe airspace disease
Chest x-ray 08/26/2024-no change in CHF, ET tube in good position
Chest x-ray 08/27/2024-mild CHF and moderate bilateral pleural effusions
If pleural effusions do not resolve with diuresis then consider thoracentesis to help with extubation
VAP prevention protocol
Sedation vacations continue
Continue light sedation-RASS 0--2
Troponin negative
Cardiology evaluation ongoing-correspondence reviewed and spoke with them personally today
Arrhythmia monitoring and rate control
Continue diuresis as tolerated
Monitor PA pressures-PA diastolic improved with diuresis
Follow renal function, electrolytes, intake/output, lower extremity edema and weight
Replace electrolytes as needed-wasting significant potassium, received nearly 200 mill equivalents/24 hours of potassium
Follow magnesium as well
Echocardiogram 08/24/2024-EF 20-25%, severe global hypokinesis, diastolic function intermediate, moderate mitral regurgitation, PA systolic 20-25
Cardiac catheterization 08/24/2024-no obstructing coronary artery disease, significant elevated right sided filling pressures-RA 21, PA 48/36, PCWP-28, cardiac index 1.56
Milrinone continues
Norepinephrine weaned
Amiodarone continues as well
Cultures reviewed
Urine culture-no growth
Repeat sputum culture-pending
Blood cultures-no growth
Sputum culture 08/24/2024-usual respiratory donny
MRSA screen negative
COVID negative
Trend temperature and leukocytosis
Procalcitonin 0.39-mildly elevated
Empiric antibiotics-ceftriaxone and doxycycline initially-with ongoing temperatures and possible aspiration-ceftriaxone changed to Zosyn
DVT prophylaxis-on heparin drip-outpatient Xarelto
GI prophylaxis if on ventilator and hypotensive
Nasogastric feedings initiated 08/26/2024-advanced to target rate
Bowel regiment if needed
Early mobilization/bedside range of motion
Dr. Arreguin reviewed with son-vascular surgeon on 08/27/[address] Arreguin reviewed with son-vascular surgeon from [facility] 08/26/2024-attended multidisciplinary rounds and reviewed later in the day with daughter and mother as well
Dr. Arreguin reviewed with 08/25/2024 at the bedside and again during multidisciplinary rounds including updating current clinical status and plan for ongoing supportive care
Dr. Arreguin reviewed with Dr. Humza Gilbert [phone]-patient's nephew who is a junior brand manager at [employer] on 08/24/2024
Critical care statement: A total of 50 minutes of critical care time was provided for this patient today. This includes management of unstable vital signs, evaluation of the patient at bedside, reviewing the patient's pertinent medical records
including radiographs, ventilator management, spontaneous breathing trial management, pressor management, microbiology, laboratory evaluations, and discussion with primary team, consultants, pharmacy, nutrition, physical therapy, case management,
charge nurse, critical care nursing, and respiratory therapy.
Diagnostic data:
Chest x-ray 08/24/2024-diffuse pulm edema versus diffuse pneumonia
Subjective Dataa
Subjective Data
Date of Service:
Date of Service: August 27, 2024
Chief Complaint: Leather Dresser Follow Up, Pulmonary Follow Up and Vent Management Follow Up
Subjective:
Alert, complains of some shortness of breath, mild chest pain, no abdominal pain, diuresing,
Review of Systems
General: Other ( per HPI)
Objective Data
Data Reviewed
Vital Signs / I&O / Oxygen:
Vital Signs
Temp Pulse Resp BP Pulse Ox
99.7 F 95 24 121/77 94
08/27/24 03:21 08/27/24 05:00 08/27/24 05:00 08/27/24 04:00 08/27/24 05:00
Intake and Output
08/26/24 08/27/24 08/28/24
06:59 06:59 06:59
Intake Total 1981.3 / 2112.2 2859.8 / 2859.8
Output Total 2960 / 3005 4762.0 / 4762.0
Balance -978.7 / -892.8 -1902.2 / -1902.2
SaO2 [A/C] 94
SaO2 94
Nasal Cannula flow liters per 6
minute
Physical Exam
General: Respiratory Distress (n) and Comfortable
HEENT: Normocephalic, Anicteric and Moist Mucous Membranes
Cardiovascular: Regular Rhythm and Murmur (n)
Respiratory: Wheeze (n), Crackles, Rhonchi, Non-Labored Respirations, Accessory Resp Muscle Use (n), Stridor (n) and ET Tube
GI: Soft, Non Distended and Non Tender
Neurology: Awake, Alert, No Motor Deficits and Other (Sedated lightly)
Skin: Warm, Good Color, Cyanosis (n), Jaundice (n) and Rash (n)
Labs/Micro/Reports
Lab Data
08/27/24 04:55
08/27/24 04:55
Laboratory Results
08/26/24 08/26/24 08/27/24
10:07 18:00 00:43
APTT 66.0 H 64.7 H 82.4 H
pH
pCO2
pO2
HCO3
O2 Delivery Level
08/27/24
04:55
APTT 79.5 H
pH 7.52 H
pCO2 37
pO2 73 L
HCO3 30.2 H
O2 Delivery Level
Microbiology
08/25/24 04:32 Blood/Venous Blood Culture - Preliminary
No Growth in 48 hours- Final report to follow
08/25/24 04:32 Blood/Venous Blood Culture - Preliminary
No Growth in 48 hours- Final report to follow
08/24/24 15:18 Endotracheal Respiratory Culture - Final
Usual Respiratory Donny
08/24/24 15:18 Endotracheal Gram Stain - Final
08/25/24 04:44 Urine Urine Culture - Final
NO GROWTH
08/25/24 04:32 Tracheal Aspirate Respiratory Culture - Preliminary
Usual Respiratory Donny
08/25/24 04:32 Tracheal Aspirate Gram Stain - Preliminary
08/24/24 15:13 Nose MRSA Screen - Final
No Methicillin Resistant Staphylococcus aureus isolated.
--- NOTE | 2024-08-27 07:33 | W.PN.CARDCBS ---
Today's Communication / Plan
-
Remains in cardiogenic shock s/p cardiac arrest with NICM.
Wean IV Levophed as able.
Cont Milrinone which was weaned to 0.125 mg Aug 25. Possible wean off next 24-48 hrs.
Improvement in outpt with IV diuresis. Wt coming down and his cr is stable.
Cont to replete lytes. Monitoring potassium and magnesium closely.
CXR Aug 27: Stable mild CHF and small to moderate bilateral pleural effusions with associated probable atelectasis.
Once off pressors and Milrinone, eventual start Coreg and Entresto. Would also consider SGLT2 inhibitor.
Likely d/c swan today.
Remains in sinus; with ectopy intermittent LBBB, amiodarone was started 08/26, continue amiodarone.
Cont IV Heparin given recent cv 08/24 during cath and recent ablation.
Check EKG.
Cont vent wean. Possible extubation next 24 hrs as cardiac status is maximized.
Cont broad spectrum antibiotics for possible pneumonia.
Impression / Plan
-
Primary Mail Clerk Bills: in [place]
Impression:
Presentation with SOB
PEA arrest with CPR and epi x5 with ROSC
Hypoxemic RF, intubated in ER 08/24/24
VDRF, self-extubated and reintubated
B/L PNA
Acute HFrEF
Cardiogenic shock
NICM, EF 20-25%
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
LBBB
Atrial flutter s/p CV 08/24/24 during cath
PAF s/p ablation procedure in [place] 07/22/24
Chronic OAC with xarelto
Post procedure pericarditis
HTN
HLD
Gout
Chronic sinus infections/issues
ECHO pre ablation in [place]: EF preserved, no significant valvular disease, no diastolic dysfunction
Echo 08/24/24: EF 20 to 25%, severe global hypokinesis, marked paradoxical septal motion, moderate MR, mild TR, PAP 20 to 25 mmHg, pleural effusion present
Plan:
-Patient presented with shortness of breath. He had PEA arrest, felt to be secondary to hypoxic respiratory failure requiring intubation in ER as well as CPR and epi x 5 with ROSC. With ROSC, rhythm was a flutter with RVR.
Underwent left and right heart cath urgently on 08/24/2024 with evidence of cardiogenic shock, cardiac index 1.6 and SVR 1700. He was diuresed aggressively and started on milrinone
Remains in cardiogenic shock s/p cardiac arrest with NICM.
Wean IV Levophed as able.
Cont Milrinone which was weaned to 0.125 mg Aug 25. Possible wean off next 24-48 hrs.
Improvement in outpt with IV diuresis. Wt coming down and his cr is stable.
Cont to replete lytes. Monitoring potassium and magnesium closely.
CXR Aug 27: Stable mild CHF and small to moderate bilateral pleural effusions with associated probable atelectasis.
Once off pressors and Milrinone, eventual start Coreg and Entresto. Would also consider SGLT2 inhibitor.
Likely d/c swan today.
Remains in sinus; with ectopy intermittent LBBB, amiodarone was started 08/26, continue amiodarone.
Cont IV Heparin given recent cv 08/24 during cath and recent ablation.
Check EKG.
Cont vent wean. Possible extubation next 24 hrs as cardiac status is maximized.
Cont pulm toilet.
Cont broad spectrum antibiotics for possible pneumonia.
Discussed with nursing and lombardi developer.
Discussed with patient's son who is a vascular surgeon at bedside.
CCT: 40 min
Progress Note - Mail Clerk Bills
Subjective
Date of Service: August 27, 2024
Pt seen and examined. On vent. No cp
Objective
Labs:
08/27/24 04:55
08/27/24 04:55
Labs
Hgb 11.8 g/dL (13.0-18.0) L 08/27/24 04:55
Hct 34.3 % (39.0-52.0) L 08/27/24 04:55
Plt Count 147 10^3/uL (130-400) 08/27/24 04:55
PT 26.0 Sec (11.4-14.6) H 08/24/24 15:13
INR 2.33 08/24/24 15:13
APTT 79.5 Sec (23.4-35.0) H 08/27/24 04:55
Sodium 138 mmol/L (135-145) 08/27/24 04:55
Potassium 3.5 mmol/L (3.5-5.1) 08/27/24 04:55
BUN 23 mg/dl (9-20) H 08/27/24 04:55
Creatinine 0.8 mg/dL (0.7-1.3) 08/27/24 04:55
Glucose 142 mg/dl (70-99) H 08/27/24 04:55
Troponins
08/24/24
11:32
Troponin I < 0.012
Vital Signs and I&O:
Vital Signs
Temp Pulse Resp BP Pulse Ox
99.7 F 95 24 121/77 94
08/27/24 03:21 08/27/24 05:00 08/27/24 05:00 08/27/24 04:00 08/27/24 05:00
Vital Signs
Temp Pulse Resp BP Pulse Ox
99.7 F 95 24 121/77 94
08/27/24 03:21 08/27/24 05:00 08/27/24 05:00 08/27/24 04:00 08/27/24 05:00
Intake & Output
08/25/24 08/26/24 08/27/24 08/28/24
06:59 06:59 06:59 06:59
Intake Total 900.4 / 976.7 1981.3 / 2112.2 2859.8 / 2859.8
Output Total 2580 / 2630 2960 / 3005 4762.0 / 4762.0
Balance -1679.6 / -1653.3 -978.7 / -892.8 -1902.2 / -1902.2
Physical Exam
Physical Exam
General: No acute distress, arousable on vent
Neck: Negative JVD
Heart: Regular, Negative S3 positive S1/S2, Negative S4, No murmur
Lungs: CTA b/l, negative wheezes/rales/rhonchi
Abd: Positive BS, NT/ND, neg rebound/rigidity/guarding
Ext: Negative cyanosis/clubbing/edema
Neuro: nonfocal
[2024-08-27] MEDS: PROTONIX IV 40 MG IV (08:30)
[2024-08-27] MEDS: NON-FORMULARY ITEM BOTH EYES ×2 (08:31→11:42)
[2024-08-27] MEDS: NSS (PRESERVATIVE FREE) 10 ML IV (08:31)
[2024-08-27] MEDS: FLUSH (NSS) 1 FLUSH IV ×3 (08:31→18:21)
[2024-08-27] MEDS: MIRALAX 17 GRAMS TUBE (08:31)
--- NOTE | 2024-08-27 09:00 | PTCARENOTE ---
Rec'd pt at 0730 resting in bed. Despite being on IV Fentanyl at 150 mcg, pt is easily arousable, nods, gestures, mouthes words. Does admit to chest soreness. JADE. Does get intermittently anxious and will try to be gesturing/writing notes but then
will admit to feeling anxious. Fentanyl 50 mcg IV given at 0830. Bilat soft wrist restraints on for pt safety. Skin is sl flushed wm and dry. Temp core 98.6. faint rash on abd. Respirs are intact on the vent. #8 ETT retaped in the center of the
mouth at the 24 cm kiara. BS are coarse. Vent AC 16, tv 500, peep 8 FIo2 50%- will occasionally add rate but little additional volume. Suctioned for thick tannish sl bloody tinged secretions. Will intermittently admit to shortness of breath. [place]ior
SR with BB config and PAC's. L radial A line intact-site wnl. Zeroed and recalibrated. Overall congruent with cuff BP. Pt with RIJ SWan/PA cath. Zeroed and recalibrated. Hemodyamics as documented. Waveforms as documented. RIJ site wnl. Rec'd pt on
IV Amiodarone at 0.5 mcg, Milrinone at 0.125 mcg/kg/min, Levophed at 3 mcg, and Fentanyl at 150 mcg all infusing via RIJ Cordis. IV Heparin infuisng via RAC IV site at 1400 units/hr. + pulses. Tr LE edema. Abd is round + BS. Tolerating Jevity 1.5
tube feeds at 55 mls/hr with 25 ml/hr flush. 20 ml residual. Hendrix intact for alvaro-yellow urine. Family at the bedside and updated. Plan of care reviewed with pt and family. Call maile in reach. Dr. Taylor in this am. Plan to possibly rolando Castillo later
today.
[2024-08-27] MEDS: LASIX 40 MG IV ×2 (10:18→16:59)
--- NOTE | 2024-08-27 10:40 | PTCARENOTE ---
Resting. Levophed turned off at 1020 as MAP's have been >65. updated on [place] readings from earlier. Plan to DC the swan. Lasix given as ordered. ECG completed- showed long Qt Dr. Taylor updated. Will put QT monitoring on the bedside monitor.
Repositioned.
--- NOTE | 2024-08-27 10:40 | PTCARENOTE ---
AC decreased to [address] Arreguin updated on pt
--- NOTE | 2024-08-27 10:49 | W.PN.HOSP.TC ---
Today's Communication/Plan
-
Milrinone drip. Heparin drip.
Assessment / Plan
Assessment / Plan
Physical exam:
General: Acutely and critically ill
HEENT: Normocephalic, Atraumatic and Moist Mucous Membranes
Respiratory: Clear to Auscultation; Negative Wheezes, Rales or Rhonchi
Cardiac: Regular Rhythm and S1/S2
GI: Soft, Nontender and Nondistended
Musculoskeletal: No Clubbing, No Cyanosis. Bilateral lower extremity edema
Neuro: Intubated and sedated but does follow simple commands
Psych: Calm
A/P:
Cardiorespiratory arrest precipitated by hypoxia:
PEA presentation with with CPR and epi x 5 and ROSC
Cardiac cath with no obstructive CAD
Cardiology consulted
Neurological status does not appear to have any post arrest bad sequela.
Discussed with cardiology in person today 08/27
TF on hold
Electrolyte replacement ongoing
Discussed with and daughter at bedside today on 08/27
Acute hypoxic respiratory failure:
Continue mechanical ventilation
Pulmonary/salesperson wigs consulted
On fentanyl drip
Acute HFrEF (nonischemic cardiomyopathy)--> Takotsubo versus tachycardia induced cardiomyopathy:
Echocardiogram with EF of 20-25%
Moderate mitral regurgitation and mild tricuspid regurgitation
On Lasix given 40 mg IV BID.
Cardiogenic shock:
Cath with elevated right left-sided filling pressures with reduced cardiac output; also significant elevated systemic vascular resistance.
Cardiology on board
On milrinone
Levophed off
Paroxysmal atrial fibrillation/atrial flutter:
Status post in-clinic cardioversion converted to normal sinus rhythm
Status post ablation in [place] last month
On heparin drip
While he is in normal sinus rhythm he is having frequent ectopies with PVCs so cont on amiodarone drip.
Fever likely aspiration pneumonia:
Cultures pending but no growth so far
Continue IV Zosyn
WBC 12.3--> 8.1
Anemia:
Continue to monitor closely
Hyperglycemia:
Insulin sliding scale
Prediabetes range
Hemoglobin A1c 5.9
Hypertension:
Hold antihypertensives and resume when able to take oral
Hyperlipidemia:
Hold statins and resume when able to take oral
Gout:
Hold allopurinol and resume when able to take oral
DVT prophylaxis:
On heparin drip
CODE STATUS:
Full code
Total time spent on today's encounter was 52 minutes which included time spent in counseling the patient/family regarding diagnosis and treatment plan as listed above, goals of care, and symptom management. Case was discussed with nursing staff,
specialists, and care coordinators/case management. All labs and imaging personally reviewed by me. Remainder the time spent in detailed review of previous records, lab data, imaging, and other medical provider documentation.
Anticipated Discharge: > 48 hours
Subjective/Interval History
-
Date of Service: August 27, 2024
Patient had an event with NG tube that has to be pulled out and vomiting and some bloody emesis. Some agitation that required mild sedation. By the time of my evaluation patient is relatively sedated and calm.
Objective Data
-
Labs:
Laboratory Results
08/27/24 08/27/24 08/27/24
00:43 04:55 12:00
WBC 8.1
Hgb 11.8 L
Hct 34.3 L
Plt Count 147
APTT 82.4 H 79.5 H
HCO3 30.2 H
Sodium 138 Pending
Potassium 3.5 Pending
Chloride 97 L Pending
Carbon Dioxide 31 H Pending
BUN 23 H Pending
Creatinine 0.8 Pending
Glucose 142 H Pending
Calcium 7.7 L Pending
Vital Signs:
Vital Signs
Temp Pulse Resp BP Pulse Ox
98.6 F 89 16 136/60 94
08/27/24 08:10 08/27/24 10:18 08/27/24 10:00 08/27/24 10:18 08/27/24 10:35
I&O
08/26/24 08/27/24 08/28/24
06:59 06:59 06:59
Intake Total 1981.3 / 2112.2 2859.8 / 2995.0 626.6 / 626.6
Output Total 2960 / 3005 4762.0 / 4762.0 220 / 220
Balance -978.7 / -892.8 -1902.2 / -1767.0 406.6 / 406.6
--- NOTE | 2024-08-27 11:00 | PTCARENOTE ---
Diurising from Lasix. Dr. Taylor updated and plan is to REBECA Castillo. No seeing as much ectopy post Lasix today.
[2024-08-27 11:46] LABS: Glucose - Point of Care 147 mg/dl (70-99)
--- NOTE | 2024-08-27 12:45 | PTCARENOTE ---
While drawing his BMP via his A line- pt started to gesture that he needed something and instantly vomited about 50 mls of tube feeds. Denied feeling nauseated but prior had motioned that he felt like something was dripping in the back of his nose-
nothing seen prior and FT was at 65 cm. Skin and mouth care given. Tube feeds placed on hold for about 5 minutes and then unable to flush the feeding tube despite several attempts. Feeding tube removed. Dr. Arreguin updated. Pt repositoned. Due to
have swan removed. Overall is restful at intervals and intermittently anxious at others- Remedicated with Fentanyl 50 mcg at 1145. Breath sounds are coarse. Suctioned pt for tannish/bloody tinged secretions. Family at the bedside. VS as documented.
[2024-08-27] MEDS: XOPENEX 0.63 MG INHALANT SOLUTION INH (12:57)
--- NOTE | 2024-08-27 13:28 | PTCARENOTE ---
[place]-Fer catheter removed per order.
[2024-08-27] MEDS: HEPARIN 25000 UNITS/250 ML IV (13:44)
[2024-08-27 13:46] LABS: Blood Urea Nitrogen 20 mg/dl (9-20); Calcium 7.9 mg/dl (8.4-10.2); Carbon Dioxide 31 mmol/L (22-30); Chloride 97 mmol/L (98-107); Estimated Creatinine Clearance 107 ml/min; Glucose 145 mg/dl (70-99); Potassium 3.6 mmol/L (3.5-5.1); Sodium 137 mmol/L (135-145); eGFR > 60.00
[2024-08-27] MEDS: ATIVAN 2 MG IV ×2 (14:11→20:08)
[2024-08-27] MEDS: NSS (PRESERVATIVE FREE) 1 ML IV (14:11)
--- NOTE | 2024-08-27 14:30 | PTCARENOTE ---
Pt is just anxious. Constantly trying to write, c/o feeling like he cannot breathe. Coughing and secretions are very bloody in ETT. Ativan 2 mg IV given at 1415 and currently CXRay obtained
--- NOTE | 2024-08-27 14:50 | PTCARENOTE ---
Jonathan removed per MD order at 1340. Attempted reinsertion of feeding tube however pt coughing with each attempt and secretions are now very bloody. Sats are 90-91% BP is elevated and pt is anxious. Constantly trying to gesture, write or say
something. Medicated with Fentanyl 50 mcg at 1345 and gtt increased to 175 mcg. Support and explanations given. Pt verbalized understanding but is anxious. Will get CXRay. Family at the bedside and updated.
--- NOTE | 2024-08-27 15:00 | PTCARENOTE ---
Dr. Arreguin aware of inability to reinsert feeding tube. Will hold off on reinsertion today. Patrick beckford Ativan
[2024-08-27] MEDS: KCL 100 IV (15:18)
--- NOTE | 2024-08-27 15:30 | PTCARENOTE ---
Pt dozing since Ativan. VS as documented. KCL40 meq rider hung via cordis at 25 ml/hr. Fentanyl at 175 mcg. Family at the bedside
--- NOTE | 2024-08-27 17:30 | PTCARENOTE ---
Has rested comfortably since earlier Ativan. Will open eyes but overall more restful. JADE. VS as documented. TOlerating vent. ETT repositioned 24 cm kiara center of the mouth. Lasix given as ordered. KCL 40 meq rider infusing via R cordis. Gwinner taken
out earlier but R cordis remains as pt remains on IV Amiodarone, Milrinone and Fentanyl via Cordis as well as KCL rider. Heparin gtt continues at 1400 units/hr via RAC IV. Monitor SR with isolated PVC's. Pt diurising from Lasix. Urine is very pale
in color. Complete bed change and skin care given. Repositioned. Family at the bedside.
[2024-08-27 17:46] LABS: Glucose - Point of Care 143 mg/dl (70-99)
--- NOTE | 2024-08-27 20:00 | PTCARENOTE ---
Received pt. at 1900. Pt currently in bed. On ventilator with light sedation. Patient awake, writing request, mouthing words. Denies pain/discomfort at this time. Afebrile. Heart rhythm sinus. Ventilator settings verified. Blood tinged secretions
when suctioned. Lungs sound coarse. Incontinent of bowel. Hendrix catheter in place, draining without issue. Skin as documented. Discussed plan of care with patient. Vital signs stable at this time.
[2024-08-27 21:14] LABS: Blood Urea Nitrogen 21 mg/dl (9-20); Calcium 8.1 mg/dl (8.4-10.2); Carbon Dioxide 29 mmol/L (22-30); Chloride 96 mmol/L (98-107); Estimated Creatinine Clearance 122 ml/min; Glucose 149 mg/dl (70-99); Magnesium 2.1 mg/dl (1.6-2.3); Sodium 135 mmol/L (135-145); eGFR > 60.00
[2024-08-27] MEDS: PRIMACOR 20 MG 100 IV (22:42)
[2024-08-28] VITALS (8 sets, daily range): BP systolic 103–146; BP diastolic 68–98; BMI 30.9
--- NOTE | 2024-08-28 | PTCARENOTE ---
Patient assessment unchanged. Blood pressure has been stable without the need for vasopressors currently. Son remains at bedside. Vital signs stable at this time.
[2024-08-28] MEDS: SUBLIMAZE 100 IV ×5 (01:16→21:34)
[2024-08-28 03:48] LABS: B.E. 10.2 mmol/L; HCO3 34.3 mmol/L (21-28); O2 Saturation % 97.3 % (94-98); PCO2 43 mmHg (35-48); PO2 77 mmHg (83-108); pH 7.51 (7.35-7.45)
[2024-08-28 03:49] LABS: % Basophils 0.1 % (0-2); % Eosinophils 3.5 % (0-6); % Immature Granulocytes 0.6 % (0-0.5); % Lymphocytes 18.6 % (20.5-51.1); % Monocytes 12.1 % (1.7-9.3); % Neutrophils 65.1 % (42.2-75.2); Absolute Eosinophils 0.3 10^3/uL (0-0.7); Absolute Lymphocytes 1.3 10^3/uL (1.2-3.4); Absolute Monocytes 0.9 10^3/uL (0.1-0.6); Absolute Neutrophils 4.7 10^3/uL (1.4-6.5); Hematocrit 36.5 % (39.0-52.0); Mean Corp Hgb Conc. 32.9 g/dL (33.0-37.0); Mean Corpuscular Hgb 29.5 pg (27.0-31.0); Mean Corpuscular Volume 89.7 fL (80.0-94.0); Mean Platelet Volume 9.3 fL (7.4-10.4); Nucleated Red Blood Cells % 0 % (-); Platelet Count 155 10^3/uL (130-400); Red Blood Cell Count 4.07 10^6/uL (4.70-6.10); Red Cell Dist. Width 14.1 % (11.5-14.5); White Blood Cell Count 7.2 10^3/uL (4.8-10.8)
[2024-08-28 03:56] LABS: APTT 89.3 Sec (23.4-35.0)
[2024-08-28 04:11] LABS: Blood Urea Nitrogen 23 mg/dl (9-20); Carbon Dioxide 32 mmol/L (22-30); Chloride 97 mmol/L (98-107); Estimated Creatinine Clearance 107 ml/min; Glucose 132 mg/dl (70-99); Potassium 3.9 mmol/L (3.5-5.1); Sodium 139 mmol/L (135-145); eGFR > 60.00
[2024-08-28] MEDS: SUBLIMAZE 50 MCG IV ×5 (05:25→22:02)
[2024-08-28] MEDS: HEPARIN 25000 UNITS/250 ML IV ×2 (05:41→23:00)
[2024-08-28] MEDS: ZOSYN 50 IV ×3 (05:43→17:51)
[2024-08-28] MEDS: NOVOLOG FLEXPEN-LOW RESISTANCE SC ×3 (05:46→17:50)
[2024-08-28 07:31] LABS: Magnesium 2.2 mg/dl (1.6-2.3)
--- NOTE | 2024-08-28 07:32 | W.PN.CARDCBS ---
Today's Communication / Plan
-
Blood pressure stable off IV Levophed.
Jonathan has been DC'd.
Discontinue milrinone, which was weaned to 0.125 mg Aug 25.
Continues with improvement in outpt with IV diuresis. I's and O's remain negative. Wt coming down and his cr is stable.
Cont to replete lytes. Monitoring potassium and magnesium closely.
CXR Aug 27: Stable mild CHF and small to moderate bilateral pleural effusions with associated probable atelectasis.
If remains stable off pressors and Milrinone, eventual start Coreg and Entresto. Would also consider SGLT2 inhibitor.
Remains in sinus; with ectopy intermittent LBBB, amiodarone was started 08/26. Discontinue amiodarone with QTc prolongation.
Continue to monitor EKG
Cont IV Heparin given recent cv 08/24 during cath and recent ablation.
Cont vent wean. Possible extubation next 24 hrs as cardiac status is being maximized.
Cont pulm toilet. Had some vomiting August 27. FiO2 has been increased. Defer to associate professor of mathematics regarding weaning protocol.
Cont broad spectrum antibiotics for possible pneumonia.
Impression / Plan
-
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
Impression:
Presentation with SOB
PEA arrest with CPR and epi x5 with ROSC
Hypoxemic RF, intubated in ER 08/24/24
VDRF, self-extubated and reintubated
B/L PNA
Acute HFrEF
Cardiogenic shock
NICM, EF 20-25%
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
LBBB
Atrial flutter s/p CV 08/24/24 during cath
PAF s/p ablation procedure in [place] 07/22/24
Chronic OAC with xarelto
Post procedure pericarditis
HTN
HLD
Gout
Chronic sinus infections/issues
ECHO pre ablation in [place]: EF preserved, no significant valvular disease, no diastolic dysfunction
Echo 08/24/24: EF 20 to 25%, severe global hypokinesis, marked paradoxical septal motion, moderate MR, mild TR, PAP 20 to 25 mmHg, pleural effusion present
Plan:
-Patient presented with shortness of breath. He had PEA arrest, felt to be secondary to hypoxic respiratory failure requiring intubation in ER as well as CPR and epi x 5 with ROSC. With ROSC, rhythm was a flutter with RVR.
Underwent left and right heart cath urgently on 08/24/2024 with evidence of cardiogenic shock, cardiac index 1.6 and SVR 1700. He was diuresed aggressively and started on milrinone
Patient is status post cardiogenic shock s/p cardiac arrest with NICM.
Blood pressure stable off IV Levophed.
[place] has been DC'd.
Discontinue milrinone, which was weaned to 0.125 mg Aug 25.
Continues with improvement in outpt with IV diuresis. I's and O's remain negative. Wt coming down and his cr is stable.
Cont to replete lytes. Monitoring potassium and magnesium closely.
CXR Aug 27: Stable mild CHF and small to moderate bilateral pleural effusions with associated probable atelectasis.
If remains stable off pressors and Milrinone, eventual start Coreg and Entresto. Would also consider SGLT2 inhibitor.
Remains in sinus; with ectopy intermittent LBBB, amiodarone was started 08/26. Discontinue amiodarone with QTc prolongation.
Continue to monitor EKG
Cont IV Heparin given recent cv 08/24 during cath and recent ablation.
Cont vent wean. Possible extubation next 24 hrs as cardiac status is being maximized.
Cont pulm toilet. Had some vomiting August 27. FiO2 has been increased. Defer to associate professor of mathematics regarding weaning protocol.
Cont broad spectrum antibiotics for possible pneumonia.
Discussed with nursing and associate professor of mathematics.
Discussed with patient's son who is a vascular surgeon at bedside.
CCT: 38 min
Progress Note - Steeping Press Operator
Subjective
Date of Service: August 28, 2024
Patient seen and examined. He writes that he does not feel improved.
Objective
Labs:
08/28/24 03:32
08/28/24 03:32
Labs
Hgb 12.0 g/dL (13.0-18.0) L 08/28/24 03:32
Hct 36.5 % (39.0-52.0) L 08/28/24 03:32
Plt Count 155 10^3/uL (130-400) 08/28/24 03:32
PT 26.0 Sec (11.4-14.6) H 08/24/24 15:13
INR 2.33 08/24/24 15:13
APTT 89.3 Sec (23.4-35.0) H 08/28/24 03:32
Sodium 139 mmol/L (135-145) 08/28/24 03:32
Potassium 3.9 mmol/L (3.5-5.1) 08/28/24 03:32
BUN 23 mg/dl (9-20) H 08/28/24 03:32
Creatinine 0.8 mg/dL (0.7-1.3) 08/28/24 03:32
Glucose 132 mg/dl (70-99) H 08/28/24 03:32
Vital Signs and I&O:
Vital Signs
Temp Pulse Resp BP Pulse Ox
98.7 F 85 15 141/88 96
08/28/24 04:00 08/28/24 06:00 08/28/24 06:00 08/28/24 04:00 08/28/24 06:00
Vital Signs
Temp Pulse Resp BP Pulse Ox
98.7 F 85 15 141/88 96
08/28/24 04:00 08/28/24 06:00 08/28/24 06:00 08/28/24 04:00 08/28/24 06:00
Intake & Output
08/26/24 08/27/24 08/28/2408/29/24
06:59 06:59 06:59 06:59
Intake Total 1981.3 / 2112.2 2859.8 / 2995.0 2055.1 /
Output Total 2960 / 3005 4762.0 / 4762.0 3180 / 3180
Balance -978.7 / -892.8 -1902.2 / -1767.0 -1123.9 / -1123.9
Physical Exam
Physical Exam
General: No acute distress, arousable and alert on ventilator.
Neck: Negative JVD
Heart: Regular, Negative S3 positive S1/S2, Negative S4, No murmur
Lungs: CTA b/l, negative wheezes/rales/rhonchi
Abd: Positive BS, NT/ND, neg rebound/rigidity/guarding
Ext: Negative cyanosis/clubbing/edema
Neuro: nonfocal
--- NOTE | 2024-08-28 07:45 | W.PN.INTV ---
Today's Communication / Plan
Recommendations
Diuresis
Replace electrolytes
Hold on nasogastric tube reinsertion
Monitor hemoptysis
Empiric antibiotics
Wean FiO2 and then PEEP
Follow chest x-ray
Consider thoracentesis
Assessment
-
69-year-old male with a history of cardiac ablation 4 to 6 weeks ago in [place] recently coming to the [facility] 2 weeks ago presented with shortness of breath with subsequent cardiac arrest in the emergency room-PEA status post immediate CPR, epi
x 5 with ROS within 15 minutes requiring intubation-subsequent rhythm a flutter with moving extremities-aerial crop duster consulted for ventilator/critical care management 08/24/2024.
Cardiac arrest
Intubated 08/24/2024-
Extubated
CHF--reduced EF
Dwirazxybxscpw-inmfhbhjcpd-ecmasvupxfl induced or Takotsubo
Cardiogenic shock-decreased MAP, increased SVR, decreased cardiac index, increased CVP
Recent cardiac ablation in [place] 4-6 weeks ago
Mild leukocytosis
Pneumonia-aspiration suspected
Conditions present prior to admission:
Arrhythmia status post cardiac ablation July 2024-[place]
Obstructive sleep apnea
Plan
Continues to be critically ill sedated on a ventilator
Ventilator settings reviewed
Ventilator adjusted-minute ventilation has been decreased
Continue attempts at weaning FiO2 and then PEEP-reviewed with SHELLACKER
ABG 08/27/2024--37/73/7.52
ABG 08/28/2024--43/77/7.51-overbreathing the vent set rate
Monitor airway pressures
Chest x-ray 08/24/2024-stable mild CHF and small bilateral pleural effusions
If pleural effusions do not resolve with diuresis then consider thoracentesis to help with extubation-especially on the left-may assist in weaning from ventilator
Will check bilateral ultrasounds to see if there is enough fluid for thoracentesis
VAP prevention protocol
Sedation vacations continue
Continue light sedation-RASS 0--2
Troponin negative
Cardiology evaluation ongoing-correspondence reviewed and spoke with them personally
Arrhythmia monitoring and rate control
Heparin drip continues
Diuresis continues
PA catheter removed and thus PA diastolics can no longer be followed
Monitor renal function, electrolytes, intake/output, lower extremity edema and weight
Continue to replace electrolytes as needed-wasting significant potassium, received nearly 160 mill equivalents/24 hours of potassium
Continue to follow magnesium as well
Echocardiogram 08/24/2024-EF 20-25%, severe global hypokinesis, diastolic function intermediate, moderate mitral regurgitation, PA systolic 20-25
Consider repeat echocardiogram
Note: Cardiac catheterization 08/24/2024-no obstructing coronary artery disease, significant elevated right sided filling pressures-RA 21, PA 48/36, PCWP-28, cardiac index 1.56
Milrinone continues-May be discontinued 08/24/2024
Norepinephrine weaned off
Amiodarone continues as well-held 08/28/2024 as QTc increased a bit
Cultures reviewed
Urine culture-no growth
Repeat sputum culture-usual respiratory donny
Blood cultures-no growth
Sputum culture 08/24/2024-usual respiratory donny
MRSA screen negative
COVID negative
Trend temperature and leukocytosis
Procalcitonin 0.39-mildly elevated
Empiric antibiotics-ceftriaxone and doxycycline initially-with ongoing temperatures and possible aspiration-ceftriaxone changed to Zosyn-finish finite course
DVT prophylaxis-on heparin drip-outpatient Xarelto
GI prophylaxis continues while on ventilator with shock
Nasogastric feedings initiated 08/26/2024-advanced to target rate-nasogastric tube pulled 08/27/2024-attempted to be ugawywdwqc-jpvtxatwjx-ecmjz x-ray without pneumothorax, hold on reinsertion for now
Bowel regiment if needed
Early mobilization/bedside range of motion
Dr. Arreguin reviewed with son-vascular surgeon from [facility] on 08/24/2024-updated on current clinical state, plan for the next 24-[address] Arreguin reviewed with son-vascular surgeon on 08/27/2024 as well as daughter and later in the day
Dr. Arreguin reviewed with son-vascular surgeon from [facility] 08/26/2024-attended multidisciplinary rounds and reviewed later in the day with daughter and mother as well
Dr. Arreguin reviewed with 08/25/2024 at the bedside and again during multidisciplinary rounds including updating current clinical status and plan for ongoing supportive care
Dr. Arreguin reviewed with Dr. Humza Gilbert [phone]-patient's nephew who is a yarn skeins examiner at [employer] on 08/24/2024
Critical care statement: A total of 45 minutes of critical care time was provided for this patient today. This includes management of unstable vital signs, evaluation of the patient at bedside, reviewing the patient's pertinent medical records
including radiographs, ventilator management, spontaneous breathing trial management, pressor management, microbiology, laboratory evaluations, and discussion with primary team, consultants, pharmacy, nutrition, physical therapy, case management,
charge nurse, critical care nursing, and respiratory therapy.
Diagnostic data:
Chest x-ray 08/24/2024-diffuse pulm edema versus diffuse pneumonia
Chest x-ray 08/25/2024-CHF improved from prior, small left pleural effusion suspected as well as left lower lobe airspace disease
Chest x-ray 08/26/2024-no change in CHF, ET tube in good position
Chest x-ray 08/27/2024-mild CHF and moderate bilateral pleural effusions
Subjective Dataa
Subjective Data
Date of Service:
Date of Service: August 28, 2024
Chief Complaint: Sonography Technician Follow Up, Pulmonary Follow Up and Vent Management Follow Up
Subjective:
Awake, some hemoptysis, mild hypoxemia, increased FiO2 requirements, diuresing, no arrhythmias
Review of Systems
General: Other (Per HPI)
Objective Data
Data Reviewed
Vital Signs / I&O / Oxygen:
Vital Signs
Temp Pulse Resp BP Pulse Ox
98.7 F 85 15 141/88 96
08/28/24 04:00 08/28/24 06:00 08/28/24 06:00 08/28/24 04:00 08/28/24 06:00
Intake and Output
08/27/24 08/28/24 08/29/24
06:59 06:59 06:59
Intake Total 2859.8 / 2995.0 2056.1 / 2056.1
Output Total 4762.0 / 4762.0 3180 / 3180
Balance -1902.2 / -1767.0 -1123.9 / -1123.9
SaO2 [A/C] 94
SaO2 96
Nasal Cannula flow liters per 6
minute
Physical Exam
General: Respiratory Distress (n) and Comfortable
HEENT: Normocephalic, Anicteric and Moist Mucous Membranes
Cardiovascular: Regular Rhythm and Murmur (n)
Respiratory: Wheeze (n), Crackles, Rhonchi, Non-Labored Respirations, Accessory Resp Muscle Use (n), Stridor (n) and ET Tube
GI: Soft, Non Distended and Non Tender
Neurology: Awake, Alert, No Motor Deficits and Other (Sedated lightly)
Skin: Warm, Good Color, Cyanosis (n), Jaundice (n) and Rash (n)
Labs/Micro/Reports
Lab Data
08/28/24 03:32
08/28/24 03:32
Laboratory Results
08/28/24
03:32
APTT 89.3 H
pH 7.51 H
pCO2 43
pO2 77 L
HCO3 34.3 H
O2 Delivery Level
Microbiology
08/25/24 04:32 Blood/Venous Blood Culture - Preliminary
No Growth in 72 hours- Final report to follow
08/25/24 04:32 Blood/Venous Blood Culture - Preliminary
No Growth in 72 hours- Final report to follow
08/25/24 04:32 Tracheal Aspirate Respiratory Culture - Final
Usual Respiratory Donny
08/25/24 04:32 Tracheal Aspirate Gram Stain - Final
08/24/24 15:18 Endotracheal Respiratory Culture - Final
Usual Respiratory Donny
08/24/24 15:18 Endotracheal Gram Stain - Final
08/25/24 04:44 Urine Urine Culture - Final
NO GROWTH
08/24/24 15:13 Nose MRSA Screen - Final
No Methicillin Resistant Staphylococcus aureus isolated.
[2024-08-28] MEDS: NON-FORMULARY ITEM BOTH EYES (08:16)
[2024-08-28] MEDS: MIRALAX TUBE (08:16)
[2024-08-28] MEDS: NSS (PRESERVATIVE FREE) 10 ML IV (08:36)
[2024-08-28] MEDS: PROTONIX IV 40 MG IV (08:37)
[2024-08-28] MEDS: KCL 100 IV (08:37)
[2024-08-28] MEDS: LASIX 40 MG IV ×2 (08:37→16:16)
--- NOTE | 2024-08-28 09:00 | PTCARENOTE ---
Rec'd pt at 0730 resting in bed. Sedated on Fentanyl at 175 mcg. Pt nodding, gesturing, mouthing words and writing notes frequently to staff and family at the bedside. Admits to chest soreness and feeling as if he cannot breathe. Remedicated with
Fentanyl 50 mcg at 0835 and gtt increased to 200 mcg as pt just seems uncomfortable. JADE. Bilat soft wrist restraints in place for pt safety. Skin is sl flushed wm and dry. R wrist previous cath site ecchymotic but not swollen. Respirs are intact on
the vent. Rec'd pt on AC 14, tv 500, peep 8 and Fio2 100%- Sats 92-94% after suctioning and repositioning as such Fio2 weaned to 80% and currently 70%. with sats of 94%. Adding rate of 16-20 but not much additional volume. Suctioned for bloody
secretions. BS are sl coarse anteriorly but posteriorly decreased at the bases but clear. + cough and gag. Pt feels as if the tube is too far down. Monitor SR with BB config. Isolated PAC's and PVCs. Rec'd pt on IV Amiodarone at 0.5 mg and Milrione
at 0.125 mcg. ECG done this am with prolonged QT. Dr. Taylor in and per MD Order Amiodarone and Milrinone dc'd at 0845. IV Heparin continues to infuse at 1400 units/hr via RAC IV site. Fentanyl continues to infuse via RIJ Cordis. L radial ese
intact. Waveform as documented. Zeroed. Site wnl. Congurent with cuff BP. + pulses . Tr LE edema. Abd is round and soft with + BS. Denies nausea. Hendrix draining yellow urine. Lasix given. Capped ints intact R wrist and L arm. Turned and
repositioned. Skin and mouth care given. Pt and family made aware of plan of care. Call gr in reach.
--- NOTE | 2024-08-28 09:28 | W.PN.HOSP.TC ---
Today's Communication/Plan
-
IV heparin drip. IV Lasix. IV antibiotics. Mechanical ventilation
Assessment / Plan
Assessment / Plan
Physical exam:
General: Acutely and critically ill
HEENT: Normocephalic, Atraumatic and Moist Mucous Membranes
Respiratory: Clear to Auscultation; Negative Wheezes, Rales or Rhonchi
Cardiac: Regular Rhythm and S1/S2
GI: Soft, Nontender and Nondistended
Musculoskeletal: No Clubbing, No Cyanosis. Bilateral lower extremity edema
Neuro: Intubated and sedated but does follow simple commands
Psych: Calm
A/P:
Cardiorespiratory arrest precipitated by hypoxia:
PEA presentation with with CPR and epi x 5 and ROSC
Cardiac cath with no obstructive CAD
Cardiology consulted
Neurological status does not appear to have any post arrest bad sequela.
Discussed with cardiology in person today 08/27
TF on hold
Electrolyte replacement ongoing
Discussed with and daughter at bedside today on 08/28
Acute hypoxic respiratory failure:
Continue mechanical ventilation
Pulmonary/television inspector consulted
On fentanyl drip
Acute HFrEF (nonischemic cardiomyopathy)--> Takotsubo versus tachycardia induced cardiomyopathy:
Echocardiogram with EF of 20-25%
Moderate mitral regurgitation and mild tricuspid regurgitation
On Lasix given 40 mg IV BID.
Cardiogenic shock:
Cath with elevated right left-sided filling pressures with reduced cardiac output; also significant elevated systemic vascular resistance.
Cardiology on board
Off milrinone
Levophed off
Paroxysmal atrial fibrillation/atrial flutter:
Status post in-clinic cardioversion converted to normal sinus rhythm
Status post ablation in [place] last month
On heparin drip
Stop amiodarone due to prolonged QT
Fever likely aspiration pneumonia:
Cultures pending but no growth so far
Continue IV Zosyn
WBC 12.3--> 7.2
Anemia:
Continue to monitor closely
Hyperglycemia:
Insulin sliding scale
Prediabetes range
Hemoglobin A1c 5.9
Hypertension:
Hold antihypertensives and resume when able to take oral
Hyperlipidemia:
Hold statins and resume when able to take oral
Gout:
Hold allopurinol and resume when able to take oral
DVT prophylaxis:
On heparin drip
CODE STATUS:
Full code
Total time spent on today's encounter was 52 minutes which included time spent in counseling the patient/family regarding diagnosis and treatment plan as listed above, goals of care, and symptom management. Case was discussed with nursing staff,
specialists, and care coordinators/case management. All labs and imaging personally reviewed by me. Remainder the time spent in detailed review of previous records, lab data, imaging, and other medical provider documentation.
Anticipated Discharge: > 48 hours
Subjective/Interval History
-
Date of Service: August 28, 2024
Patient remains on the ventilator. Follows commands and answer questions appropriately writing on a note pad. Afebrile.
Objective Data
-
Labs:
Laboratory Results
08/28/24
03:32
WBC 7.2
Hgb 12.0 L
Hct 36.5 L
Plt Count 155
APTT 89.3 H
HCO3 34.3 H
Sodium 139
Potassium 3.9
Chloride 97 L
Carbon Dioxide 32 H
BUN 23 H
Creatinine 0.8
Glucose 132 H
Calcium 8.0 L
Vital Signs:
Vital Signs
Temp Pulse Resp BP Pulse Ox
98.7 F 92 15 134/72 94
08/28/24 08:16 08/28/24 08:37 08/28/24 06:00 08/28/24 08:37 08/28/24 07:40
I&O
08/27/24 08/28/24 08/29/24
06:59 06:59 06:59
Intake Total 2859.8 / 2995.0 2055.1 /
Output Total 4762.0 / 4762.0 3180 / 3180
Balance -1902.2 / -1767.0 -1123.9 / -1123.9
--- NOTE | 2024-08-28 10:30 | PTCARENOTE ---
Pt diurising from Lasix. Sats overall have been better 95-96% and pt currently decreased to 50%. Family at the bedside and frequently updated.
[2024-08-28 11:51] LABS: Glucose - Point of Care 123 mg/dl (70-99)
[2024-08-28] MEDS: XOPENEX 0.63 MG INHALANT SOLUTION INH (12:06)
[2024-08-28] MEDS: DULCOLAX 10 MG RECTAL (12:29)
--- NOTE | 2024-08-28 12:30 | PTCARENOTE ---
Assessment overall is unchanged- pt mostly has eyes closed but immediately opens them whenever anyone is talking. Gestures, writes notes and mouthes words. Restraints intact. Fentanyl at 200 mcg. IV's infusing as ordered. Remedicated with Fentanyl
50 mcg at 1225 as he said his chest hurts and that he cannot breathe even though getting volumes. BS sl coarse anteriorly. Suctioned for bloody secretions. Resp therapy in and tried to see if could get any plugs out but none noted. RR when relaxed
is 16-20 and 24-30 for a few breaths when more anxious. Just tends to feel everything and constantly wants to write. Family at the bedside. VS as documented. BP and HR have remained ok post Amio and Milrione being Dc'd. Pt does feel like his stomach
is rumbling like gas. Dulcolax supp given as pt has not moved his bowels. Denies nausea. Diuresed from earlier lasix. Repositioned.
--- NOTE | 2024-08-28 13:20 | PTCARENOTE ---
[place] quiles completed and BMP/mag sent
[2024-08-28 13:45] LABS: Blood Urea Nitrogen 24 mg/dl (9-20); Calcium 8.4 mg/dl (8.4-10.2); Carbon Dioxide 29 mmol/L (22-30); Chloride 97 mmol/L (98-107); Estimated Creatinine Clearance 120 ml/min; Glucose 122 mg/dl (70-99); Magnesium 2.1 mg/dl (1.6-2.3); Potassium 4.1 mmol/L (3.5-5.1); Sodium 136 mmol/L (135-145); eGFR > 60.00
[2024-08-28] MEDS: NSS (PRESERVATIVE FREE) 0.25 ML IV (14:14)
[2024-08-28] MEDS: ATIVAN 0.5 MG IV (14:14)
[2024-08-28] MEDS: FLUSH (NSS) 1 FLUSH IV (14:15)
--- NOTE | 2024-08-28 14:15 | PTCARENOTE ---
Pt rests briefly but then is awake and tends to feel everything which then tends to bother him. Fentanyl gtt at 200 mcg. in earlier and spoke at length with family and pt. This RN spoke at length with family and pt as well. Overall pt
remains alert and oriented. Frequently writing notes or mouthing words/gesturing to communicate but often seems anxious even though tries to relax. Yesterday given Ativan and pt rested for a few hours however pts son is concerned with the effects of
the Ativan and would prefer he not have it if possible. Updated Dr. Herring and lower dose of Ativan ordered to try to relax pt- Ativan 0.5 mg IV given.Explained to why we were using the Ativan. Pt given Dulcolax at 1230 and placed on bedpan as he
felt he had to move his bowels. Passed flatus but no stool. Turned and repositioned. Skin care given. C/O the #ETT being 'down to far' - explanations given. ETT at the 23 cm kiara. Repostioned q4 but at times the repositioning bothers him-tends to
like it positioned on the L side. Call gr in reach.
--- NOTE | 2024-08-28 15:00 | PTCARENOTE ---
A little calmer since Ativan but sats better- sats 95-96%. Pt will still complain that he cannot breath but getting volumes and RR 16-22. Fentanyl remains at 200 mcg
--- NOTE | 2024-08-28 16:30 | PTCARENOTE ---
Has overall been a little more restful. Sats have beeb 94-96% and pt decreased at 1600 back to 50%. Suctioned for bloody secretions- small amt. VS as documented. Pt admits feeling a little better since moving his bowels. Lasix given. Call gr in
reach
[2024-08-28 17:51] LABS: Glucose - Point of Care 118 mg/dl (70-99)
--- NOTE | 2024-08-28 18:15 | PTCARENOTE ---
Diurising from Lasix but not as much as earlier. Family at the bedside. Pt calm currently and watching football. Nodding his head that he is comfortable. No other changes.
--- NOTE | 2024-08-28 20:44 | PTCARENOTE ---
Addendum entered by Dolly Reeder RN 08/28/24 22:50:
Left radial ese zeroed, flushed, and leveled.
Original Note:
Received patient oriented, following commands, JADE, nodding appropriately. Strong hand grasps and flexion/extension against resistance in feet b/l. Family at bedside. PERRLA, 2 mm. Restraints intact. Normal sinus/sinus tach, 90s-100s with a bundle
branch configuration, occasional PACs and PVCs. Normothermic. Trace edema in b/l lower extremities, SCDs on. 8.0 ETT 23 at the lip, on the left. AC 14/500/50%, PEEP of 8. Lung sounds coarse anteriorly. Saturating 95%, thin, bloody secretions.
Hypoactive bowel sounds, abdomen round. Thermistor arzate in place draining yellow urine. Foams on sacrum and heels, bruise on right wrist. PIVs patent, WNL, RIJ cordis patent, WNL. Fentanyl and heparin gtt ongoing. Hourly rounding and patient safety
checks ongoing.
[2024-08-28 20:57] LABS: Blood Urea Nitrogen 26 mg/dl (9-20); Calcium 8.3 mg/dl (8.4-10.2); Carbon Dioxide 26 mmol/L (22-30); Chloride 98 mmol/L (98-107); Estimated Creatinine Clearance 105 ml/min; Glucose 123 mg/dl (70-99); Magnesium 2.1 mg/dl (1.6-2.3); Potassium 3.9 mmol/L (3.5-5.1); Sodium 136 mmol/L (135-145); eGFR > 60.00
[2024-08-29] VITALS (7 sets, daily range): BP systolic 119–149; BP diastolic 77–93; BMI 30.1
--- NOTE | 2024-08-29 00:05 | PTCARENOTE ---
Patient received fentanyl bolus for CPOT>/= 3, having vent dyssynchrony/agitation, increased fentanyl drip rate to 225 mcg/hr. Mouth care/vent checks done, arzate care done. Otherwise patient assessment unchanged from previous, family remains at
bedside. Hourly rounding and patient safety checks ongoing.
[2024-08-29 00:11] LABS: Glucose - Point of Care 121 mg/dl (70-99)
[2024-08-29] MEDS: ATIVAN 0.5 MG IV (00:44)
[2024-08-29] MEDS: NSS (PRESERVATIVE FREE) 0.25 ML IV (00:45)
--- NOTE | 2024-08-29 00:48 | PTCARENOTE ---
Heparin and arterial line/saline tubing changed. Patient mouthing words and talking around cuff, RT to bedside, inflated cuff a little bit more, patient pulling adequate tidal volumes. PRN ativan given for agitation.
[2024-08-29] MEDS: SUBLIMAZE 100 IV ×2 (01:57→06:12)
[2024-08-29] MEDS: ATIVAN 2 MG IV (04:11)
[2024-08-29] MEDS: NSS (PRESERVATIVE FREE) 1 ML IV (04:11)
[2024-08-29 04:25] LABS: B.E. 7.2 mmol/L; HCO3 31.2 mmol/L (21-28); O2 Saturation % 99.7 % (94-98); PCO2 41 mmHg (35-48); PO2 120 mmHg (83-108); pH 7.49 (7.35-7.45)
[2024-08-29 04:42] LABS: % Basophils 0.3 % (0-2); % Eosinophils 2.2 % (0-6); % Immature Granulocytes 0.4 % (0-0.5); % Lymphocytes 13.2 % (20.5-51.1); % Monocytes 11.5 % (1.7-9.3); % Neutrophils 72.4 % (42.2-75.2); Absolute Eosinophils 0.2 10^3/uL (0-0.7); Absolute Lymphocytes 1.2 10^3/uL (1.2-3.4); Absolute Neutrophils 6.6 10^3/uL (1.4-6.5); Hematocrit 39.7 % (39.0-52.0); Hemoglobin 13.6 g/dL (13.0-18.0); Mean Corp Hgb Conc. 34.3 g/dL (33.0-37.0); Mean Corpuscular Volume 87.6 fL (80.0-94.0); Mean Platelet Volume 9.4 fL (7.4-10.4); Nucleated Red Blood Cells % 0 % (-); Platelet Count 203 10^3/uL (130-400); Red Blood Cell Count 4.53 10^6/uL (4.70-6.10); Red Cell Dist. Width 14.1 % (11.5-14.5); White Blood Cell Count 9.1 10^3/uL (4.8-10.8)
--- NOTE | 2024-08-29 04:47 | PTCARENOTE ---
PRN ativan given for agitation and vent dyssynchrony. CHG bath done, sheets changed, mouth care done. Patient had a small bowel movement, cleaned. Repositioned, ETT moved to center. Labs sent. Otherwise patient assessment unchanged from previous.
[2024-08-29 04:59] LABS: APTT 63.4 Sec (23.4-35.0)
[2024-08-29] MEDS: ZOSYN 50 IV ×2 (05:22)
[2024-08-29] MEDS: NOVOLOG FLEXPEN-LOW RESISTANCE SC ×4 (05:25→19:54)
[2024-08-29 05:30] LABS: Blood Urea Nitrogen 32 mg/dl (9-20); Calcium 8.6 mg/dl (8.4-10.2); Carbon Dioxide 27 mmol/L (22-30); Chloride 97 mmol/L (98-107); Estimated Creatinine Clearance 104 ml/min; Glucose 127 mg/dl (70-99); Magnesium 2.2 mg/dl (1.6-2.3); Potassium 4.1 mmol/L (3.5-5.1); Sodium 138 mmol/L (135-145); eGFR > 60.00
[2024-08-29 05:33] LABS: Glucose - Point of Care 128 mg/dl (70-99)
--- NOTE | 2024-08-29 07:07 | W.PN.INTV ---
Today's Communication / Plan
Recommendations
SBT trial today, extubate if doing well, CPAP resumed post exutubation
Advance diet as tolerated post extubation, speech eval if needed
Ongoing diuresis per team, follow daily weights/UO
Stop abx and observe off
PT/OT
Updated son at bedside and on rounds
Assessment
-
69-year-old male with a history of cardiac ablation 4 to 6 weeks ago in [place] recently coming to the [facility] 2 weeks ago presented with shortness of breath with subsequent cardiac arrest in the emergency room-PEA status post immediate CPR, epi
x 5 with ROS within 15 minutes requiring intubation-subsequent rhythm a flutter with moving extremities-ornamental ironworker consulted for ventilator/critical care management 08/24/2024.
s/p Acute cardiac arrest
Acute hypoxic respiratory failure, 79%
Intubated 08/24/2024-
Extubated
CHF--reduced EF
Uzievsphzfeato-qreijjeytad-cfhgzfhfthv induced or Takotsubo
Cardiogenic shock-decreased MAP, increased SVR, decreased cardiac index, increased CVP
Recent cardiac ablation in [place] 4-6 weeks ago
Mild leukocytosis
Pneumonia-aspiration suspected
Conditions present prior to admission:
Arrhythmia status post cardiac [place] [place]
Obstructive sleep apnea
Plan
Sedation: fent, off
Awake/alert, following commands
Not on psych meds as OP
Can given PRN meds to calm if anxious
SAT trial
CHF, on IV diuresis
Has lost 10kg, initial weight 107kg, now 97
Ongoing diuresis per cards
Troponin negative
Arrhythmia monitoring and rate control/Heparin drip continues
Echocardiogram 08/24/2024-EF 20-25%, severe global hypokinesis, diastolic function intermediate, moderate mitral regurgitation, PA systolic 20-25
Consider repeat echocardiogram
Note: Cardiac catheterization 08/24/2024-no obstructing coronary artery disease, significant elevated right sided filling pressures-RA 21, PA 48/36, PCWP-28, cardiac index 1.56
Milrinone discontinued/Norepinephrine weaned off
Amiodarone continues as well-held 08/28/2024 as QTc increased a bit
Intubated for airway protection/acute hypoxemia, O2 jaylen 79%
Ventilator settings reviewed-AC 500/14/50/8+
ABG(s) reviewed, SBT planning
Chest x-ray 08/24/2024-stable mild CHF and small bilateral pleural effusions
Extubate if passes
He has home CPAP to use, can resume post extubation
NPO for now, advance diet pending extubation
Nasogastric feedings initiated 08/26/2024-advanced to target rate-nasogastric tube pulled 08/27/2024-attempted to be cyxjbuguor-oquwgjkazv-bjdit x-ray without pneumothorax, hold on reinsertion for now
Bowel regiment if needed
GI ppx if indicated--GERD history, resume omeprazole
Aspiration precautions
Speech eval post extubation, PO access
Initially on abx, cultures reviewed:
Urine culture-no growth
Repeat sputum culture-usual respiratory donny
Blood cultures-no growth
Sputum culture 08/24/2024-usual respiratory donny
MRSA screen negative
COVID negative
Monitor off, trend temperature and leukocytosis
Procalcitonin 0.39-mildly elevated
Stop abx and observe off
No history of renal disease
Creatinine stable, monitor I's and O's, urine output
Replete electrolytes as needed
Stable CBC, no history of bleeding/coagulopathy
DVT prophylaxis-on heparin drip-outpatient Xarelto
Early mobilization/bedside range of motion
No histoy of thyroid disease/diabetes
Hba1c 5.9, likely prediabetic
Diet modifications are recommended, weight loss measures
Coverage with SS if needed
Family Discussions
Dr. Arreguin reviewed with son-vascular surgeon from [facility] on 08/24/2024-updated on current clinical state, plan for the next 24-[address] Arreguin reviewed with son-vascular surgeon on 08/27/2024 as well as daughter and later in the day
Dr. Arreguin reviewed with son-vascular surgeon from [facility] 08/26/2024-attended multidisciplinary rounds and reviewed later in the day with daughter and mother as well
Dr. Arreguin reviewed with 08/25/2024 at the bedside and again during multidisciplinary rounds including updating current clinical status and plan for ongoing supportive care
Dr. Arreguin reviewed with Dr. Humza Gilbert [phone]-patient's nephew who is a business change manager at [facility] on 08/24/2024
Diagnostic data:
Chest x-ray 08/24/2024-diffuse pulm edema versus diffuse pneumonia
Chest x-ray 08/25/2024-CHF improved from prior, small left pleural effusion suspected as well as left lower lobe airspace disease
Chest x-ray 08/26/2024-no change in CHF, ET tube in good position
Chest x-ray 08/27/2024-mild CHF and moderate bilateral pleural effusions
08/29/24- Stable findings suggesting left lower lobe pneumonia. Mild cardiomegaly. Stable
ABG 08/27/2024--37/73/7.52
ABG 08/28/2024--43/77/7.51
ECHO 08/24/24- Normal left ventricular chamber size. Severely reduced left ventricular systolic function. Left ventricular ejection fraction is 20-25% by visual estimate. Severe Global hypokinesis. Marked paradoxical septal motion. Diastolic
function indeterminate. Normal right ventricular size and function. Moderate mitral regurgitation. Mild tricuspid regurgitation. Estimated pulmonary artery pressure of 20-25 mmHg, assuming a right atrial pressure of 3 mmHg. Pleural effusion present.
No prior study available for comparison.
-----
Critical Care time 45 mins -- The patient is admitted for acute critical illness for the treatment of vital organ failure and/or prevention of further life-threatening conditions. Total care includes time spent in review of history, physical exam,
medications, hemodynamic/ventilator parameters, laboratory data, imaging and discussion with house staff, pharmacy, respiratory therapy, shale miner blasting, and nursing.
Subjective Dataa
Subjective Data
Date of Service:
Date of Service: August 29, 2024
Chief Complaint: Dude Wrangler Follow Up, Pulmonary Follow Up and Vent Management Follow Up
Subjective:
No acute events ON, remains on vent
Family at bedside
Anxious appearing but following commands
Objective Data
Data Reviewed
Vital Signs / I&O / Oxygen:
Vital Signs
Temp Pulse Resp BP Pulse Ox
99.1 F 88 14 137/89 95
08/29/24 03:12 08/29/24 06:00 08/29/24 06:00 08/29/24 04:00 08/29/24 06:05
Intake and Output
08/28/24 08/29/24 08/30/24
06:59 06:59 06:59
Intake Total 2056.1 / 2108.2 1024.2 / 1024.2
Output Total 3180 / 3180 2535 / 2535
Balance -1123.9 / -1071.8 -1510.8 / -1510.8
SaO2 [A/C] 96
SaO2 95
Nasal Cannula flow liters per 6
minute
Physical Exam
General: Respiratory Distress (n) and Comfortable
HEENT: Normocephalic, Anicteric and Moist Mucous Membranes
Cardiovascular: Regular Rhythm and Murmur (n)
Respiratory: Clear, Wheeze (n), Non-Labored Respirations, Accessory Resp Muscle Use (n), Stridor (n) and ET Tube
GI: Soft, Non Distended and Non Tender
Neurology: Awake, Alert, Oriented (following commands) and No Motor Deficits
Skin: Warm, Good Color, Cyanosis (n), Jaundice (n) and Rash (n)
Labs/Micro/Reports
Lab Data
08/29/24 04:17
08/29/24 04:17
Laboratory Results
08/29/24
04:17
APTT 63.4 H
pH 7.49 H
pCO2 41
pO2 120 H
HCO3 31.2 H
O2 Delivery Level
Microbiology
08/25/24 04:32 Blood/Venous Blood Culture - Preliminary
No Growth in 4 days- Final report to follow
08/25/24 04:32 Blood/Venous Blood Culture - Preliminary
No Growth in 4 days- Final report to follow
08/25/24 04:32 Tracheal Aspirate Respiratory Culture - Final
Usual Respiratory Donny
08/25/24 04:32 Tracheal Aspirate Gram Stain - Final
08/24/24 15:18 Endotracheal Respiratory Culture - Final
Usual Respiratory Donny
08/24/24 15:18 Endotracheal Gram Stain - Final
08/25/24 04:44 Urine Urine Culture - Final
NO GROWTH
08/24/24 15:13 Nose MRSA Screen - Final
No Methicillin Resistant Staphylococcus aureus isolated.
--- NOTE | 2024-08-29 07:34 | W.PN.HOSP.TC ---
Today's Communication/Plan
-
see A/P
Assessment / Plan
Assessment / Plan
Physical exam:
General: Acutely and critically ill
HEENT: Normocephalic, Atraumatic and Moist Mucous Membranes
Respiratory: Clear to Auscultation; Negative Wheezes, Rales or Rhonchi
Cardiac: Regular Rhythm and S1/S2
GI: Soft, Nontender and Nondistended
Musculoskeletal: No Clubbing, No Cyanosis. Bilateral lower extremity edema
Neuro: Intubated and sedated but does follow simple commands
Psych: Calm
A/P:
# Cardiorespiratory arrest precipitated by hypoxia:
# PEA presentation with with CPR and epi x 5 and ROSC
Cardiac cath with no obstructive CAD
Neurological status does not appear to have any post arrest bad sequela.
TF for nutrition
# Acute hypoxic respiratory failure:
Continue mechanical ventilation
On fentanyl drip
Pulmonary/exceptional children teacher on board
# Acute HFrEF (nonischemic cardiomyopathy) -> Takotsubo versus tachycardia induced cardiomyopathy:
Echocardiogram with EF of 20-25%
Moderate mitral regurgitation and mild tricuspid regurgitation
On Lasix 40 mg IV BID.
# Cardiogenic shock:
Cath with elevated right left-sided filling pressures with reduced cardiac output; also significant elevated systemic vascular resistance.
Off milrinone
Off Levophed
Cardiology on board
# Paroxysmal atrial fibrillation/atrial flutter:
Status post in-clinic cardioversion converted to normal sinus rhythm
Status post ablation in [place] last month MARKETING COMMUNICATIONS ASSISTANT
On heparin drip
Off amiodarone due to prolonged QT
# Fever likely aspiration pneumonia:
blood cultures no growth, respiratory culture usual donny, urine culture no growth
Continue IV Zosyn total 7 days
# Anemia:
Hgb stable at 13
Continue to monitor closely
# Hyperglycemia:
Insulin sliding scale
Hemoglobin A1c 5.9, Prediabetes range
# Hypertension:
Hold antihypertensives and resume when able to take oral
BP stable
# Hyperlipidemia:
Hold statins and resume when able to take oral
Gout:
Hold allopurinol and resume when able to take oral
DVT prophylaxis: On heparin drip
CODE STATUS: Full code
Total time spent on today's encounter was 51 minutes which included time spent in counseling the patient/family regarding diagnosis and treatment plan as listed above, goals of care, and symptom management. Case was discussed with nursing staff,
specialists, and care coordinators/case management. All labs and imaging personally reviewed by me. Remainder the time spent in detailed review of previous records, lab data, imaging, and other medical provider documentation.
Discussed with son at bedside today 08/29
Discussed with card team
Anticipated Discharge: > 48 hours
Subjective/Interval History
-
Date of Service: August 29, 2024
Objective Data
-
Labs:
Laboratory Results
08/28/24 08/29/24 08/29/24
19:55 04:17 12:00
WBC 9.1
Hgb 13.6
Hct 39.7
Plt Count 203 D
APTT 63.4 H Pending
HCO3 31.2 H
Sodium 136 138
Potassium 3.9 4.1
Chloride 98 97 L
Carbon Dioxide 26 27
BUN 26 H 32 H
Creatinine 0.8 0.8
Glucose 123 H 127 H
Calcium 8.3 L 8.6
Vital Signs:
Vital Signs
Temp Pulse Resp BP Pulse Ox
37.3 C 88 14 137/89 95
08/29/24 03:12 08/29/24 06:00 08/29/24 06:00 08/29/24 04:00 08/29/24 06:05
I&O
08/28/24 08/29/24 08/30/24
06:59 06:59 06:59
Intake Total 6.1 / 2107.2 1024.2 / 1024.2
Output Total 3180 / 3180 2535 / 2535
Balance -1123.9 / -1071.8 -1510.8 / -1510.8
Review of Systems
-
Unable to obtain full review of systems at this time due to: Patient Intubation
Data Reviewed
-
Diagnostic Radiology: Report Reviewed by me
Labs: Labs Reviewed by me
[2024-08-29] MEDS: MIRALAX TUBE (08:05)
[2024-08-29] MEDS: LASIX 40 MG IV ×2 (08:05→16:24)
[2024-08-29] MEDS: NON-FORMULARY ITEM BOTH EYES (08:06)
[2024-08-29] MEDS: NSS (PRESERVATIVE FREE) 10 ML IV (08:07)
[2024-08-29] MEDS: PROTONIX IV 40 MG IV (08:07)
--- NOTE | 2024-08-29 08:48 | W.PN.CARDCBS ---
Today's Communication / Plan
-
Continues with improvement in outpt with IV diuresis. I's and O's remain negative. Wt coming down and his cr is stable.
Wt down possibly 20 lbs since admit.
Cont to replete lytes. Monitoring potassium and magnesium closely.
Cont to monitor pleural effusions with CXR
Start IV lopressor 2.5 mg IV Qhr and transition to Coreg next 24 hrs if extubated. Consider Entresto next 24 hrs. Would also consider SGLT2 inhibitor this admit
Remains in sinus; intermittent LBBB, amiodarone was started 08/26 and discontinued with QTc prolongation.
Continue to monitor EKG
Cont IV Heparin given recent cv 08/24 during cath and recent ablation.
Cont vent wean. Possible extubation next 24 hrs
Impression / Plan
-
.
Primary Storage Manager: in [place]
Impression:
Presentation with SOB
PEA arrest with CPR and epi x5 with ROSC
Hypoxemic RF, intubated in ER 08/24/24
VDRF, self-extubated and reintubated
B/L PNA
Acute HFrEF
Cardiogenic shock
NICM, EF 20-25%
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
LBBB
Atrial flutter s/p CV 08/24/24 during cath
PAF s/p ablation procedure in [place] 07/22/24
Chronic OAC with xarelto
Post procedure pericarditis
HTN
HLD
Gout
Chronic sinus infections/issues
ECHO pre ablation in [place]: EF preserved, no significant valvular disease, no diastolic dysfunction
Echo 08/24/24: EF 20 to 25%, severe global hypokinesis, marked paradoxical septal motion, moderate MR, mild TR, PAP 20 to 25 mmHg, pleural effusion present
Plan:
-Patient presented with shortness of breath. He had PEA arrest, felt to be secondary to hypoxic respiratory failure requiring intubation in ER as well as CPR and epi x 5 with ROSC. With ROSC, rhythm was a flutter with RVR.
Underwent left and right heart cath urgently on 08/24/2024 with evidence of cardiogenic shock, cardiac index 1.6 and SVR 1700. He was diuresed aggressively and started on milrinone
Patient is status post cardiogenic shock s/p cardiac arrest with NICM.
He is off IV pressors and Milrinone.
HR and bp stable
Continues with improvement in outpt with IV diuresis. I's and O's remain negative. Wt coming down and his cr is stable.
Wt down possibly 20 lbs since admit.
Cont to replete lytes. Monitoring potassium and magnesium closely.
Cont to monitor pleural effusions with CXR
Start IV lopressor 2.5 mg IV Qhr and transition to Coreg next 24 hrs if extubated. Consider Entresto next 24 hrs. Would also consider SGLT2 inhibitor this admit
Remains in sinus; intermittent LBBB, amiodarone was started 08/26 and discontinued with QTc prolongation.
Continue to monitor EKG
Cont IV Heparin given recent cv 08/24 during cath and recent ablation.
Cont vent wean. Possible extubation next 24 hrs
Cont pulm toilet. Cont broad spectrum antibiotics for possible pneumonia.
Discussed with nursing and board saw runner.
Discussed with patient's son who is a vascular surgeon at bedside.
CCT: 37 min
Progress Note - Storage Manager
Subjective
Date of Service: August 29, 2024
Pt seen and examined. No cp.
Objective
Labs:
08/29/24 04:17
08/29/24 04:17
Labs
Hgb 13.6 g/dL (13.0-18.0) 08/29/24 04:17
Hct 39.7 % (39.0-52.0) 08/29/24 04:17
Plt Count 203 10^3/uL (130-400) D 08/29/24 04:17
PT 26.0 Sec (11.4-14.6) H 08/24/24 15:13
INR 2.33 08/24/24 15:13
APTT 63.4 Sec (23.4-35.0) H 08/29/24 04:17
Sodium 138 mmol/L (135-145) 08/29/24 04:17
Potassium 4.1 mmol/L (3.5-5.1) 08/29/24 04:17
BUN 32 mg/dl (9-20) H 08/29/24 04:17
Creatinine 0.8 mg/dL (0.7-1.3) 08/29/24 04:17
Glucose 127 mg/dl (70-99) H 08/29/24 04:17
Vital Signs and I&O:
Vital Signs
Temp Pulse Resp BP Pulse Ox
99 F 94 17 137/89 94
08/29/24 07:50 08/29/24 07:58 08/29/24 07:58 08/29/24 04:00 08/29/24 07:58
Vital Signs
Temp Pulse Resp BP Pulse Ox
99 F 94 17 137/89 94
08/29/24 07:50 08/29/24 07:58 08/29/24 07:58 08/29/24 04:00 08/29/24 07:58
Intake & Output
08/27/24 08/28/24 08/29/24 08/30/24
06:59 06:59 06:59 06:59
Intake Total 2859.8 / 2995.0 2056.1 / 2108.2 1024.2 / 1024.2
Output Total 4762.0 / 4762.0 3180 / 3180 2535 / 2535
Balance -1902.2 / -1767.0 -1123.9 / -1071.8 -1510.8 / -1510.8
Physical Exam
Physical Exam
General: No acute distress, arousable and alert on ventilator.
Neck: Negative JVD
Heart: Regular, Negative S3 positive S1/S2, Negative S4, No murmur
Lungs: CTA b/l, negative wheezes/rales/rhonchi
Abd: Positive BS, NT/ND, neg rebound/rigidity/guarding
Ext: Negative cyanosis/clubbing/edema
Neuro: nonfocal
[2024-08-29 09:45] LABS: HCO3 30.7 mmol/L (21-28); O2 Saturation % 96.9 % (94-98); PCO2 32 mmHg (35-48); PO2 73 mmHg (83-108); pH 7.59 (7.35-7.45)
--- NOTE | 2024-08-29 09:49 | PTCARENOTE ---
fio2 decreased to 40%
[2024-08-29] MEDS: OFIRMEV 100 IV (10:26)
--- NOTE | 2024-08-29 10:30 | PTCARENOTE ---
pt extubated to aerosol mask at 1020. tolerated well. no distress noted. pt much calmer since tube removed. pt voice very hoarse, no stridor. family at bedside.
[2024-08-29 11:11] LABS: NT-proBNP 205 pg/ml
[2024-08-29 11:43] LABS: Glucose - Point of Care 114 mg/dl (70-99)
[2024-08-29 12:21] LABS: APTT 68.4 Sec (23.4-35.0)
--- NOTE | 2024-08-29 13:00 | PTCARENOTE ---
pt remains calm/comfortable on aerosol masks with intermittent ice chips. pt placed on 4lnc, mouth care completed. then gave sips of water which pt tolerated with no s/s of aspiration/resp distress. pt then tolerated spoonfuls of applesauce as
well. Chloe Naranjo and Claudia made aware. orders noted.
[2024-08-29] MEDS: HEPARIN 25000 UNITS/250 ML IV (14:00)
--- NOTE | 2024-08-29 14:19 | PTCARENOTE ---
Pt requesting to get up to bathroom. Supervisor Vacuum Metalizing approved oob. Using walker, pt able to stand and get to commode with min assist of 2. Once pt had lg loose brown bm in commode, naveen care completed and pt assisted to chair. Hendrix removed and pt
provided with urinal. Pt prefers cam but did maintain sats on 4lnc in low to mid 90s. at bedside. Pt tolerating intermittent sips of water. Otherwise no changes
--- NOTE | 2024-08-29 15:11 | CM ---
CM folioing re: discharge planning.
Discussed in Rounds, reviewed pt's chart, met with pt. Pt's spouse and pt's son at bedside.
Pt extubated to aerosol mask at 1020, tolerated well, continue supportive care.
PT, OT and ST will evaluate the pt to determine a level of care at discharge.
Pt's spouse brought to my attention updates with insurance situation. pt's spouse stated that pt's insurance in [place] works with [facility] and updated pt's clinical needs to be faxed to: , Phone number: [phone].
therapeutic case manager, as well as hospital admissions department notified of changes and request for clinical.
D/C plan: return back to [facility] when medically stable.
CM will follow with discharge plan updates as hospitalization progresses
[2024-08-29] MEDS: TYLENOL 650 MG PO ×2 (16:27→20:23)
[2024-08-29] MEDS: LOPRESSOR 25 MG PO (16:27)
[2024-08-29] MEDS: LIDOCAINE 4% PATCH 1 PATCH TOPICAL (16:59)
--- NOTE | 2024-08-29 17:00 | PTCARENOTE ---
Pt prefers being on aerosol mask, has also tolerated brief periods of room air, but slightly increased wob with activity. Has voided a couple of times since arzate removed. Returned to bed with assistance. Pt otherwise appears comfortable. No
current complaints. Systems otherwise unchanged.
[2024-08-29 19:03] LABS: APTT 72.3 Sec (23.4-35.0)
--- NOTE | 2024-08-29 20:00 | PTCARENOTE ---
rec`d pt at 1900 aaox3, able to make needs known. SR to ST on monitor. palpable pulses. scds. +1 edema. aerosol mask at 35% or 8L. POX mid 90s. moist cough. coarse ronchi throughout. pt walks to commode with 2x person assist. pt able to tolerate PO
meds. had BM at change of shift/ brown liquid stool. uses urinal. rt w bruise. sacral foam, skin tear on abdomen. Left r a line. rt cordis with heparin gtt running. trending ptts. rt AC flushed and patent. pt`s son at bedside, call gr in reach,
safe environment maintained.
[2024-08-30] VITALS (11 sets, daily range): BP systolic 124–132; BP diastolic 73–86; PULSE 85–91; O2SAT 95; BMI 30.1
[2024-08-30 00:26] LABS: Glucose - Point of Care 106 mg/dl (70-99)
--- NOTE | 2024-08-30 01:00 | PTCARENOTE ---
pt reassessed. no changes in pt assessment. call gr in reach, safe environment maintained. son at bedside.
[2024-08-30] MEDS: TYLENOL PO ×2 (02:07→03:50)
[2024-08-30] MEDS: NOVOLOG FLEXPEN-LOW RESISTANCE SC ×3 (02:07→12:15)
[2024-08-30 02:15] LABS: Hematocrit 38.7 % (39.0-52.0); Mean Corp Hgb Conc. 33.6 g/dL (33.0-37.0); Mean Corpuscular Hgb 29.3 pg (27.0-31.0); Mean Corpuscular Volume 87.2 fL (80.0-94.0); Platelet Count 223 10^3/uL (130-400); Red Blood Cell Count 4.44 10^6/uL (4.70-6.10); Red Cell Dist. Width 13.8 % (11.5-14.5); White Blood Cell Count 10.6 10^3/uL (4.8-10.8)
[2024-08-30 02:25] LABS: APTT 98.9 Sec (23.4-35.0)
[2024-08-30 03:15] LABS: Blood Urea Nitrogen 34 mg/dl (9-20); Calcium 8.5 mg/dl (8.4-10.2); Carbon Dioxide 28 mmol/L (22-30); Chloride 97 mmol/L (98-107); Estimated Creatinine Clearance 119 ml/min; Glucose 113 mg/dl (70-99); Magnesium 2.2 mg/dl (1.6-2.3); Potassium 3.5 mmol/L (3.5-5.1); Sodium 138 mmol/L (135-145); Triglycerides 168 mg/dl (10-149); eGFR > 60.00
--- NOTE | 2024-08-30 04:51 | PTCARENOTE ---
pt reassessed. no changes in pt assessment. call gr in reach, safe environment maintained. son at bedside.
[2024-08-30] MEDS: HEPARIN 25000 UNITS/250 ML IV ×2 (05:46→20:19)
[2024-08-30 06:20] LABS: Glucose - Point of Care 116 mg/dl (70-99)
--- NOTE | 2024-08-30 07:08 | W.PN.INTV ---
Today's Communication / Plan
Recommendations
Doing well, no events ON, remains stable post extubation
Encourage OOB/PT/IS, ambulation
Continue nightly CPAP
IV diuresis ongoing per cards
Transfer to [facility] today, we will sign off upon transfer
Assessment
-
69-year-old male with a history of cardiac ablation 4 to 6 weeks ago in [place] recently coming to the [facility] 2 weeks ago presented with shortness of breath with subsequent cardiac arrest in the emergency room-PEA status post immediate CPR, epi
x 5 with ROS within 15 minutes requiring intubation-subsequent rhythm a flutter with moving extremities-motel front desk attendant consulted for ventilator/critical care management 08/24/2024.
s/p Acute cardiac arrest
Acute hypoxic respiratory failure, 79%
Intubated 08/24/2024-
Extubated 08/29/24
CHF--reduced EF
Bzijmeyngccsol-jwwuvplskec-qwonphwptxf induced or Takotsubo
Cardiogenic shock-decreased MAP, increased SVR, decreased cardiac index, increased CVP
Recent cardiac ablation in [place] 4-6 weeks ago
Mild leukocytosis
Pneumonia-aspiration suspected
Conditions present prior to admission:
Arrhythmia status post cardiac ablation [facility] 2024[facility]
Obstructive sleep apnea
Plan
Sedation: off x 24 hours
Awake/alert, following commands
Not on psych meds as OP
Can given PRN meds to calm if anxious
CHF, on IV diuresis
Has lost 10kg, initial weight 107kg, now 97
Ongoing diuresis per cards
Troponin negative
Arrhythmia monitoring and rate control/Heparin drip continues
Echocardiogram 08/24/2024-EF 20-25%, severe global hypokinesis, diastolic function intermediate, moderate mitral regurgitation, PA systolic 20-25
Consider repeat echocardiogram
Note: Cardiac catheterization 08/24/2024-no obstructing coronary artery disease, significant elevated right sided filling pressures-RA 21, PA 48/36, PCWP-28, cardiac index 1.56
Milrinone discontinued/Norepinephrine weaned off
Amiodarone continues as well-held 08/28/2024 as QTc increased a bit
Intubated for airway protection/acute hypoxemia, O2 jaylen 79%
Extubated 08/29/24, doing well
Chest x-ray 08/24/2024-stable mild CHF and small bilateral pleural effusions
Resume home CPAP nightly
Diet advanced, tolerating
Bowel regiment if needed
GI ppx if indicated--GERD history, resume omeprazole
Aspiration precautions
Initially on abx, cultures reviewed:
Urine culture-no growth
Repeat sputum culture-usual respiratory donny
Blood cultures-no growth
Sputum culture 08/24/2024-usual respiratory donny
MRSA screen negative
COVID negative
Monitor off, trend temperature and leukocytosis
Procalcitonin 0.39-mildly elevated
Stop abx and observe off
No history of renal disease
Creatinine stable, monitor I's and O's, urine output
Replete electrolytes as needed
Stable CBC, no history of bleeding/coagulopathy
DVT prophylaxis-on heparin drip-outpatient Xarelto
Early mobilization/bedside range of motion
No histoy of thyroid disease/diabetes
Hba1c 5.9, likely prediabetic
Diet modifications are recommended, weight loss measures
Coverage with SS if needed
Family Discussions
Dr. Arreguin reviewed with son-vascular surgeon from [facility] on 08/24/2024-updated on current clinical state, plan for the next 24-[address] Arreguin reviewed with son-vascular surgeon on 08/27/2024 as well as daughter and later in the day
Dr. Arreguin reviewed with son-vascular surgeon from [facility] 08/26/2024-attended multidisciplinary rounds and reviewed later in the day with daughter and mother as well
Dr. Arreguin reviewed with 08/25/2024 at the bedside and again during multidisciplinary rounds including updating current clinical status and plan for ongoing supportive care
Dr. Arreguin reviewed with Dr. Humza Gilbert [phone]-patient's nephew who is a thermometer tester at [employer] on 08/24/2024
Diagnostic data:
Chest x-ray 08/24/2024-diffuse pulm edema versus diffuse pneumonia
Chest x-ray 08/25/2024-CHF improved from prior, small left pleural effusion suspected as well as left lower lobe airspace disease
Chest x-ray 08/26/2024-no change in CHF, ET tube in good position
Chest x-ray 08/27/2024-mild CHF and moderate bilateral pleural effusions
08/29/24- Stable findings suggesting left lower lobe pneumonia. Mild cardiomegaly. Stable
ABG 08/27/2024--37/73/7.52
ABG 08/28/2024--43/77/7.51
ECHO 08/24/24- Normal left ventricular chamber size. Severely reduced left ventricular systolic function. Left ventricular ejection fraction is 20-25% by visual estimate. Severe Global hypokinesis. Marked paradoxical septal motion. Diastolic
function indeterminate. Normal right ventricular size and function. Moderate mitral regurgitation. Mild tricuspid regurgitation. Estimated pulmonary artery pressure of 20-25 mmHg, assuming a right atrial pressure of 3 mmHg. Pleural effusion present.
No prior study available for comparison.
-----
Critical Care time 35 mins -- The patient is admitted for acute critical illness for the treatment of vital organ failure and/or prevention of further life-threatening conditions. Total care includes time spent in review of history, physical exam,
medications, hemodynamic/ventilator parameters, laboratory data, imaging and discussion with house staff, pharmacy, respiratory therapy, steward/stewardess wine, and nursing.
Subjective Dataa
Subjective Data
Date of Service:
Date of Service: August 30, 2024
Chief Complaint: Millinery Copyist Follow Up, Pulmonary Follow Up and Vent Management Follow Up
Subjective:
No acute events ON, doing well
Son at bedside
No new complaints
Objective Data
Data Reviewed
Vital Signs / I&O / Oxygen:
Vital Signs
Temp Pulse Resp BP Pulse Ox
98.3 F 102 19 130/80 92
08/30/24 03:32 08/30/24 05:00 08/30/24 05:00 08/30/24 04:00 08/30/24 04:30
Intake and Output
08/29/24 08/30/24 08/31/24
06:59 06:59 06:59
Intake Total 1024.2 / 1062.7 928.5 / 928.5
Output Total 2535 / 2610 1495 / 1495
Balance -1510.8 / -1547.3 -566.5 / -566.5
SaO2 [CPAP] 95
SaO2 [A/C] 96
SaO2 92
Nasal Cannula flow liters per 6
minute
Physical Exam
General: Respiratory Distress (n), Comfortable, Good Appetite and Other (NAD)
HEENT: Normocephalic, Anicteric and Moist Mucous Membranes
Cardiovascular: S1-S2, Regular Rhythm and Murmur (n)
Respiratory: Clear, Wheeze (n), Non-Labored Respirations, Accessory Resp Muscle Use (n) and Stridor (n)
GI: Soft, Non Distended and Non Tender
Neurology: Awake, Alert, Oriented (following commands) and No Motor Deficits
Skin: Warm, Good Color, Cyanosis (n), Jaundice (n) and Rash (n)
Labs/Micro/Reports
Lab Data
08/30/24 02:03
08/30/24 02:03
Laboratory Results
08/29/24 08/29/24 08/29/24
09:39 11:47 18:40
APTT 68.4 H 72.3 H
pH 7.59 H
pCO2 32 L
pO2 73 L
HCO3 30.7 H
O2 Delivery Level
08/30/24
02:03
APTT 98.9 H
pH
pCO2
pO2
HCO3
O2 Delivery Level
Microbiology
08/25/24 04:32 Blood/Venous Blood Culture - Final
No Growth - Final Report
08/25/24 04:32 Blood/Venous Blood Culture - Final
No Growth - Final Report
08/25/24 04:32 Tracheal Aspirate Respiratory Culture - Final
Usual Respiratory Donny
08/25/24 04:32 Tracheal Aspirate Gram Stain - Final
[2024-08-30] MEDS: PROTONIX IV 40 MG IV (07:55)
[2024-08-30] MEDS: NSS (PRESERVATIVE FREE) 10 ML IV (07:56)
[2024-08-30] MEDS: LIDOCAINE 4% PATCH 1 PATCH TOPICAL (07:56)
[2024-08-30] MEDS: LOPRESSOR 25 MG PO (07:56)
[2024-08-30] MEDS: TYLENOL 650 MG PO ×4 (07:56→20:18)
[2024-08-30] MEDS: MIRALAX TUBE (07:56)
[2024-08-30] MEDS: NON-FORMULARY ITEM BOTH EYES (07:57)
--- NOTE | 2024-08-30 07:58 | W.PN.HOSP.TC ---
Today's Communication/Plan
-
see A/P
SPL Eval
PT OT eval
Assessment / Plan
Assessment / Plan
A/P:
# Cardiorespiratory arrest precipitated by hypoxia:
# PEA presentation with CPR and epi x 5 and ROSC
# Acute hypoxic respiratory failure POA
Cardiac cath with no obstructive CAD
Neurological status intact
passed SBT trial 08/29, extubated 08/29
Cont current O2 support at 5 L NC, wean as tolerated
Resume BEAUTY CONSULTANT CPAP post extubation
Advance TF diet once passes SPL eval
PT OT eval
Pulmonary/patrol driver on board
# Acute HFrEF (nonischemic cardiomyopathy) -> Takotsubo versus tachycardia induced cardiomyopathy:
Echocardiogram with EF of 20-25%
Moderate mitral regurgitation and mild tricuspid regurgitation
On Lasix 40 mg IV BID.
Started Lopressor 25 mg BID
# Cardiogenic shock:
Cath with elevated right left-sided filling pressures with reduced cardiac output; also significant elevated systemic vascular resistance.
Off milrinone, Off Levophed
Cardiology on board
# Paroxysmal atrial fibrillation/atrial flutter:
Status post in-clinic cardioversion converted to normal sinus rhythm
Status post ablation in [place] last month BEAUTY CONSULTANT
On heparin drip
Started Lopressor 25 mg BID
Off amiodarone due to prolonged QT
# Fever likely aspiration pneumonia:
blood cultures no growth, respiratory culture usual donny, urine culture no growth
s/p IV Zosyn x4 days , Abx stopped
# Anemia:
Hgb stable at 13
Continue to monitor closely
# Hyperglycemia:
Insulin sliding scale
Hemoglobin A1c 5.9, Prediabetes range
# Hypertension:
Hold antihypertensives and resume when able to take oral
BP stable
# Hyperlipidemia:
Hold statins and resume when able
Gout:
Hold allopurinol and resume when able
DVT prophylaxis: On heparin drip
CODE STATUS: Full code
DW RN
Anticipated Discharge: 24 - 48 hours
Subjective/Interval History
-
Date of Service: August 30, 2024
Objective Data
-
Labs:
Laboratory Results
08/30/24 08/30/24
02:03 09:00
WBC 10.6
Hgb 13.0
Hct 38.7 L
Plt Count 223
APTT 98.9 H Pending
Sodium 138
Potassium 3.5
Chloride 97 L
Carbon Dioxide 28
BUN 34 H
Creatinine 0.7
Glucose 113 H
Calcium 8.5
Vital Signs:
Vital Signs
Temp Pulse Resp BP Pulse Ox
36.8 C 102 19 130/80 92
08/30/24 03:32 08/30/24 05:00 08/30/24 05:00 08/30/24 04:00 08/30/24 04:30
I&O
08/29/24 08/30/24 08/31/24
06:59 06:59 06:59
Intake Total 1024.2 / 1062.7 928.5 / 946.5
Output Total 2535 / 2610 1495 / 1495
Balance -1510.8 / -1547.3 -566.5 / -548.5
Review of Systems
-
All other systems: Reviewed and negative
Physical Exam
-
General: Well Developed, Well Nourished, Comfortable and Conversant
HEENT: Normocephalic, Atraumatic, Nose Appears Normal, Ears Appear Normal and Oxygen (5L NC)
Respiratory: Clear to Auscultation and Non Labored Respirations; Negative Accessory Resp Muscle Use
Cardiac: Regular Rhythm and S1/S2
GI: Soft, Nontender, Nondistended and Normal Bowel Sounds
Skin: Warm and Dry
Neuro: Awake, Alert, Oriented and AO x 3
Psych: Calm and Intact Judgement/Insight
Data Reviewed
-
Labs: Labs Reviewed by me
[2024-08-30] MEDS: LASIX 40 MG IV ×2 (09:44→15:13)
[2024-08-30] MEDS: KCL 270 MEQ IV (09:44)
[2024-08-30 10:13] LABS: APTT 104.3 Sec (23.4-35.0)
--- NOTE | 2024-08-30 10:53 | PTCARENOTE ---
Blaine and Geetha d/c'sam. PT/OT working with pt at this time. Awaiting speech therapist. Pt downgraded to telemetry. No open beds on floor at this time.
--- NOTE | 2024-08-30 12:05 | PTOTSP ---
ST Acute Care Evaluation
Pt currently presents with clinical symptoms of mild pharyngoesophageal dysfunction as exhibited by coughing with ingestion of solids as well as intermittent hiccupping and hx of GERD.
Recommendations:
- DOWNGRADE to SOFT BITE SIZED SOLIDS, continue with thin liquids and meds as tolerated.
- Aspiration & reflux precautions: Fully upright for all PO intake and for 60 minutes after PO intake; small bites/sips; slow intake rate; chew food thoroughly; alternate bites/sips.
- CW OPERATOR to f/u re: diet tolerance and to determine if pt would benefit from an instrumental swallow study.
[2024-08-30 12:14] LABS: Glucose - Point of Care 124 mg/dl (70-99)
--- NOTE | 2024-08-30 13:13 | CM ---
Addendum entered by Aneudy Jaffe 08/30/24 15:54:
CM met with pt's spouse, daughter and son and pt's spouse stated that [facility] insurance is a part of pt's travel insurance and pt has International insurance Assistance Janet Negrete phone number [phone]. . Per spouse pt's
international policy covers $2,000,000.000 expense
CM updated [facility] nurse on insurance.
[facility] re[facility] update.
Addendum entered by Aneudy Jaffe 08/30/24 15:20:
CM spoke to [facility] title coordinator Chasity and she stated their business office confirmed that acute rehab will not be covered under pt's travel insurance plan.
Family is awre.
Addendum entered by Aneudy Jaffe 08/30/24 13:30:
Pt's spouse and daughter have phone number from [place] and son Pablo has phone number from [facility]. For convenience to navigate next level of care pt's spouse provided cousins phone number in the [place]:
Kath Cruz [phone]
Rolo Escobar [phone].
Original Note:
CM following re: discharge planning.
Discussed in Rounds, reviewed pt's chart, met with pt. Pt's spouse, daughter and son Pablo at bedside. Per Rounds meeting pt is downgraded from ICU level of care.
PT and OT evaluations noted - rehab vs home recommended. pt was able to walk 6 steps with min assistance of 2 people. Pt's family brought their concerns regarding caring for pt till pt can fly back to [facility].
After long discussion with the family decision is made to send referrals to acute rehab and subacute rehab.
A referral made to [facility] and [facility].
For subacute rehab pt's spouse requested [facility] and any other SNF in the area. A referral made to: [facility], [facility], [facility], [facility]. Awaiting for determinations.
Per spouse pt will covered by [facility] [place] stated that is hollie with [employer] insurance in [place]. [facility] phone number: [phone].
Per [facility] SN[facility] assistant spa director they are out of network with [facility].
Per pt's son who is MD, pt might not need a short term rehab down the road giving the fact that pt is recovering well.
D/C plan: Acute or subacute rehab.
CM will follow to assist pt with discharge to acute or subacute rehab.
--- NOTE | 2024-08-30 15:49 | W.PN.CARDCBS ---
Addendum entered and electronically signed by Sil Whitney MD 08/30/24 17:47:
I saw and examined the patient.
The Administrative Professional's note was reviewed and I agree with the note.
Comment: Spoke with the patient and his family at great length today. Complex situation. Initial presentation with shortness of breath then PEA arrest with CPR and epinephrine with return of circulation. Prolonged vent dependent respiratory
failure secondary to cardiogenic shock with pneumonia (possible aspiration), cardiogenic shock with heart failure with reduced ejection fraction (20-25%). Nonobstructive coronary artery disease by cardiac catheterization.
Volume status has improved and he is appearing more euvolemic.
I have held IV Lasix and likely transition to oral tomorrow pending blood pressure and creatinine.
He was just started on carvedilol and now Entresto.
Would wait another 24 hours and if stable consider slowly adding SGLT2 inhibitor and Aldactone .
Await repeat echo tomorrow.
Replete electrolytes as needed.
Defer to electrophysiology regarding utility in his complex case of ICD.
Original Note:
Today's Communication / Plan
-
transition lopressor to coreg. add entresto later tonight vs in AM
continue IV lasix. wean supp O2
repeat echo in AM
remains on IV heparin, consider transition to xarelto in next 24 hours if no further procedures planned
Impression / Plan
-
.
Primary Medical Technologist: in [place]
Impression:
Presentation with SOB
PEA arrest with CPR and epi x5 with ROSC
Hypoxemic RF, intubated in ER 08/24/24
VDRF, self-extubated and reintubated
B/L PNA
Acute HFrEF
Cardiogenic shock
NICM, EF 20-25%
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
LBBB
Atrial flutter s/p CV 08/24/24 during cath
PAF s/p ablation procedure in [place] 07/22/24
Chronic OAC with xarelto
Post procedure pericarditis
HTN
HLD
Gout
Chronic sinus infections/issues
ECHO pre ablation in [place]: EF preserved, no significant valvular disease, no diastolic dysfunction
Echo 08/24/24: EF 20 to 25%, severe global hypokinesis, marked paradoxical septal motion, moderate MR, mild TR, PAP 20 to 25 mmHg, pleural effusion present
Plan:
-Patient presented with shortness of breath. He had witnessed PEA arrest in ER, felt to be secondary to hypoxic respiratory failure requiring intubation in ER as well as CPR and epi x 5 with ROSC. With ROSC, rhythm was a flutter with RVR.
Underwent left and right heart cath urgently on 08/24/2024 with evidence of cardiogenic shock, cardiac index 1.6 and SVR 1700. He was diuresed aggressively and started on milrinone
-he was transferred out of ICU today
-continue IV diuresis. proBNP has improved from 2100 on admission to 200 today. Cr stable. K repleted this AM per primary service. follow BUN, trending up.
-BP/HR stable. transitioned lopressor to coreg and uptitrate as able. consider addition of entresto within next 24 hours pending BP trends
-will have CM assess cost to patient of [facility] and consider addition of aldactone prior to DC
-remains in SR. had intermittent LBBB. amiodarone had been started 08/26 but was stopped due to QTc prolongation.
-currently remains on IV heparin, consider transition back to OP xarelto in next 24 hours
-will reassess EF by echo in AM
-OP statin on hold. repeat LFTs in AM and consider resuming
-Cont pulm toilet. Cont broad spectrum antibiotics for possible pneumonia. wean supp O2 as able
-OOB/IS as able
-d/w nursing. d/w patient's son who is vascular surgeon in [facility] at bedside
Progress Note - Medical Technologist
Subjective
Date of Service: August 30, 2024
reports feeling so-so. reports some chest pain with coughing
Objective
Labs:
08/30/24 02:03
08/30/24 02:03
Labs
Hgb 13.0 g/dL (13.0-18.0) 08/30/24 02:03
Hct 38.7 % (39.0-52.0) L 08/30/24 02:03
Plt Count 223 10^3/uL (130-400) 08/30/24 02:03
PT 26.0 Sec (11.4-14.6) H 08/24/24 15:13
INR 2.33 08/24/24 15:13
APTT 104.3 Sec (23.4-35.0) H 08/30/24 09:40
Sodium 138 mmol/L (135-145) 08/30/24 02:03
Potassium 3.5 mmol/L (3.5-5.1) 08/30/24 02:03
BUN 34 mg/dl (9-20) H 08/30/24 02:03
Creatinine 0.7 mg/dL (0.7-1.3) 08/30/24 02:03
Glucose 113 mg/dl (70-99) H 08/30/24 02:03
Vital Signs and I&O:
Vital Signs
Temp Pulse Resp BP Pulse Ox
98.2 F 90 18 132/85 96
08/30/24 15:07 08/30/24 15:07 08/30/24 15:07 08/30/24 15:07 08/30/24 15:07
Vital Signs
Temp Pulse Resp BP Pulse Ox
98.2 F 90 18 132/85 96
08/30/24 15:07 08/30/24 15:07 08/30/24 15:07 08/30/24 15:07 08/30/24 15:07
Intake & Output
08/28/24 08/29/24 08/30/24 08/31/24
07:59 07:59 07:59 07:59
Intake Total 1973.0 / 2024.1 1010.6 / 1010.6 908 / 976 410 / 410
Output Total 3180 / 3270 2610 / 2710 1420 / 1420 350 / 350
Balance -1207.0 / -1244.9 -1599.4 / -1699.4 -512 / -444 60 / 60
Physical Exam
Physical Exam
GEN: No distress, awake, alert, oriented x3. on supp O2
HEENT: supple, anicteric, mmm, eomi
LUNGS: Crackles/diminished LLB, no wheezes
CV: Reg, S1/S2, no murmur
ABD: soft, BS+, NT/ND
EXT: No cyanosis, clubbing. trace edema of B/L LE
NEURO: Gross non-focal
SKIN: Warm, pink, dry. No rash. Ecchymoses of L forearm
[2024-08-30] MEDS: ENTRESTO 24 MG/26 MG 1 TAB PO (20:17)
[2024-08-30] MEDS: COREG 3.125 MG PO (20:17)
[2024-08-31] VITALS (7 sets, daily range): BP systolic 107–135; BP diastolic 66–74; PULSE 92; O2SAT 99; BMI 29.2
--- NOTE | 2024-08-31 04:01 | DOWNTIME ---
There was a [employer] Downtime on 08/31/2024 from 0100 to 08/31/2024 at 0350. Downtime documentation of patient's care, including medication administrations, has been reconciled in the electronic record per guidelines. Refer to the
patient's paper chart under the miscellaneous tab to see printed paper medication records and downtime forms.
[2024-08-31] MEDS: TYLENOL PO ×5 (04:03→23:04)
[2024-08-31 07:42] LABS: APTT 115.9 Sec (23.4-35.0)
[2024-08-31 07:43] LABS: Hematocrit 42.9 % (39.0-52.0); Hemoglobin 13.9 g/dL (13.0-18.0); Mean Corp Hgb Conc. 32.4 g/dL (33.0-37.0); Mean Corpuscular Hgb 29.4 pg (27.0-31.0); Mean Corpuscular Volume 90.9 fL (80.0-94.0); Mean Platelet Volume 9.5 fL (7.4-10.4); Platelet Count 281 10^3/uL (130-400); Red Blood Cell Count 4.72 10^6/uL (4.70-6.10); Red Cell Dist. Width 13.8 % (11.5-14.5); White Blood Cell Count 9.5 10^3/uL (4.8-10.8)
--- NOTE | 2024-08-31 07:55 | CARDSERVLU ---
Echocardiogram with [facility] completed after protocol screening completed. Allergies verified.
Patent IV site: _R AC____
IV site flushed with 0.9% NaCl pre and post administration.
Diluted bolus method utilized to enhance visualization of ventricular pino.
Total volume given: __2.5__ mL
Patient tolerated all procedures well without complications.
[2024-08-31 08:41] LABS: Blood Urea Nitrogen 30 mg/dl (9-20); Calcium 8.9 mg/dl (8.4-10.2); Carbon Dioxide 35 mmol/L (22-30); Chloride 95 mmol/L (98-107); Estimated Creatinine Clearance 93 ml/min; Glucose 106 mg/dl (70-99); Magnesium 2.3 mg/dl (1.6-2.3); Potassium 3.8 mmol/L (3.5-5.1); Sodium 139 mmol/L (135-145); eGFR > 60.00
[2024-08-31] MEDS: COREG 3.125 MG PO ×2 (09:03→20:46)
[2024-08-31] MEDS: LIDOCAINE 4% PATCH 1 PATCH TOPICAL (09:03)
[2024-08-31] MEDS: MIRALAX TUBE (09:04)
[2024-08-31] MEDS: TYLENOL 650 MG PO ×2 (09:09→16:40)
[2024-08-31] MEDS: NON-FORMULARY ITEM BOTH EYES (09:10)
--- NOTE | 2024-08-31 09:50 | W.PN.HOSP.TC ---
Today's Communication/Plan
-
see A/P
Assessment / Plan
Assessment / Plan
A/P:
# Cardiorespiratory arrest precipitated by hypoxia
# PEA presentation with CPR and epi x 5 and ROSC
# Acute hypoxic respiratory failure POA, resolved
Cardiac cath with no obstructive CAD
Neurological status intact
Extubated 08/29
Resumed INTERNAL SALESPERSON CPAP post extubation
Cont O2 support, down from 5 L to 3L NC, cont to wean as tolerated
Soft and bite size diet per SPL recc
PT OT eval
# Acute HFrEF (nonischemic cardiomyopathy) -> Takotsubo versus tachycardia induced cardiomyopathy
# Cardiogenic shock
Cath with elevated right left-sided filling pressures with reduced cardiac output; also significant elevated systemic vascular resistance.
Off milrinone, Off Levophed
Echocardiogram with EF of 20-25%
Moderate mitral regurgitation and mild tricuspid regurgitation
Off IV Lasix 40 mg BID with plan to transition to PO, defer to card
Lopressor 25 mg BID -> Coreg 3.125 BID
Added Entresto BID
Consider slowly adding SGLT2 inhibitor and Aldactone.
For repeat echo 08/31
Defer to electrophysiology regarding ICD.
# Paroxysmal atrial fibrillation/atrial flutter
Status post in-clinic cardioversion converted to normal sinus rhythm
Status post ablation in [place] last month INTERNAL SALESPERSON
On heparin drip
Lopressor 25 mg BID -> Coreg 3.125 BID
Off amiodarone due to prolonged QT
# Fever likely aspiration pneumonia
blood cultures no growth, respiratory culture usual donny, urine culture no growth
s/p IV Zosyn x4 days , Abx stopped
# Anemia:
Hgb stable at 13
Continue to monitor closely
# Hyperglycemia:
Insulin sliding scale
Hemoglobin A1c 5.9, Prediabetes range
# Hypertension:
BP stable
meds as above
# Hyperlipidemia:
resume INTERNAL SALESPERSON Crestor
# Gout:
resume INTERNAL SALESPERSON allopurinol
DVT prophylaxis: On heparin drip
CODE STATUS: Full code
DW and son at bedside
Anticipated Discharge: 24 - 48 hours
Subjective/Interval History
-
Date of Service: August 31, 2024
Objective Data
-
Labs:
Laboratory Results
08/31/24
06:50
WBC 9.5
Hgb 13.9
Hct 42.9
Plt Count 281 D
APTT 115.9 H
Sodium 139
Potassium 3.8
Chloride 95 L
Carbon Dioxide 35 H
BUN 30 H
Creatinine 0.8
Glucose 106 H
Calcium 8.9
Vital Signs:
Vital Signs
Temp Pulse Resp BP Pulse Ox
36.6 C 84 20 123/69 94
08/31/24 08:18 08/31/24 09:03 08/31/24 08:18 08/31/24 09:03 08/31/24 08:18
I&O
08/30/24 08/31/24 09/01/24
06:59 06:59 06:59
Intake Total 928.5 / 946.5 1148 / 1148
Output Total 1495 / 1495 1450 / 1450 250 / 250
Balance -566.5 / -548.5 -302 / -302 -250 / -250
Review of Systems
-
All other systems: Reviewed and negative
Physical Exam
-
General: Well Developed, Well Nourished, Comfortable and Conversant
HEENT: Normocephalic, Atraumatic, Nose Appears Normal, Ears Appear Normal and Oxygen (3L NC)
Respiratory: Clear to Auscultation and Non Labored Respirations; Negative Accessory Resp Muscle Use
Cardiac: Regular Rhythm and S1/S2
GI: Soft, Nontender, Nondistended and Normal Bowel Sounds
Skin: Warm and Dry
Neuro: Awake, Alert, Oriented and AO x 3
Psych: Calm and Intact Judgement/Insight
Data Reviewed
-
Labs: Labs Reviewed by me
[2024-08-31] MEDS: ENTRESTO 24 MG/26 MG 1 TAB PO ×2 (10:45→20:45)
--- NOTE | 2024-08-31 15:24 | PTOTSP ---
ST Follow-Up
Pt continues to present with clinical signs of pharyngeal dysphagia as evidenced by coughing with ingestion of dry solids. Extensive education provided to pt, pt's , and daughter. Advised them that his diet can be upgraded provided that he
continues to utilize moisture additives (e.g. gravies, sauces, broths, soups, butter, milk, etc.) with all dry/hard solids (e.g. dry cereal, breads, meats, etc.), and that if he shows any signs of difficulty (e.g. coughing), that he should
discontinue eating that item. Pt and family communicated understanding. Information provided in writing 2x (on aspiration precaution sign and on menu).
Recommendations:
- Upgrade to regular solids (pt to order moisture additives with all dry solids), regular thin liquids, and meds as tolerated.
- Aspiration precautions: HOB upright for all meals; small bites/sips; alternate bites/sips; use moisture additives for all dry/hard solids.
- SLEEP SCIENTIST to f/u re: diet tolerance and to determine if pt would benefit from an instrumental swallow study.
[2024-08-31 16:38] LABS: APTT 105.3 Sec (23.4-35.0)
--- NOTE | 2024-08-31 17:07 | PTCARENOTE ---
1435 Pt stated that he has developed some hematuria. Pt currently on Heparin Drip at 17/hr. Dr. Glover made aware. PTT result at 1620 105.3 which is therapeutic.
[2024-08-31] MEDS: CRESTOR 10 MG PO (17:36)
--- NOTE | 2024-08-31 17:53 | CM ---
requested birch for [employer] .
Spoke with family in room .
His insurance is [facility] policy number [id number] Phone Number with report number [phone].
Will need to call above for [facility].
[facility] can not accept with his insurance.
PT OT said home VS skilled rehab.
Family said they do not have a home here.
On oxygen 3 liters POx 94%..
PLAN DC planning ongoing.
--- NOTE | 2024-08-31 18:08 | W.PN.CARDCBS ---
Today's Communication / Plan
-
IV diuresis on hold, transition oral 09/01
Aldactone in AM
Repeat echo pending
Wean O2 as tolerated
Consider transition to oral OAC in 24h
Impression / Plan
-
.
Primary Box Estimator: Marty Yang ([facility])
.
Impression:
Presentation with SOB
PEA arrest with CPR and epi x5 with ROSC
Hypoxemic RF, intubated in ER 08/24/24
VDRF, self-extubated and reintubated
B/L PNA
Acute HFrEF, improving
Cardiogenic shock, off pressors
NICM, EF 20-25%
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
LBBB
Atrial flutter s/p CV 08/24/24 during cath
PAF s/p ablation procedure in [place] 07/22/24
Chronic OAC with xarelto
Post procedure pericarditis
HTN
HLD
Gout
Chronic sinus infections/issues
Hematuria
ECHO pre ablation in [place]: EF preserved, no significant valvular disease, no diastolic dysfunction
Echo 08/24/24: EF 20 to 25%, severe global hypokinesis, marked paradoxical septal motion, moderate MR, mild TR, PAP 20 to 25 mmHg, pleural effusion present
Plan:
-Patient presented with shortness of breath. He had witnessed PEA arrest in ER, felt to be secondary to hypoxic respiratory failure requiring intubation in ER as well as CPR and epi x 5 with ROSC. With ROSC, rhythm was a flutter with RVR.
Underwent left and right heart cath urgently on 08/24/2024 with evidence of cardiogenic shock, cardiac index 1.6 and SVR 1700. He was diuresed aggressively and started on milrinone
-he was transferred out of ICU 08/30/2024
-continue IV diuresis. proBNP has improved from 2100 on admission to 200 today. Cr stable. K repleted this AM per primary service. follow BUN, trending up.
-BP/HR stable. transitioned lopressor to coreg and uptitrate as able; tolerating entresto
-will have CM assess cost to patient of [facility] and consider addition of aldactone prior to DC
-remains in SR. had intermittent LBBB. amiodarone had been started 08/26 but was stopped due to QTc prolongation.
-Telemetry SR no ventricular arrhythmias; further discussion with patient and family regarding ICD when nearing discharge.
-currently remains on IV heparin reporting mild nose bleed and hematuria, consider transition back to OP xarelto in next 24 hours
-Echocardiogram pending
-OP statin resumed
-Cont pulm toilet. Cont broad spectrum antibiotics for possible pneumonia. wean supp O2 as able
-OOB/IS as able
-d/w nursing. d/w patient's son who is vascular surgeon in [facility] at bedside, , and daughter
Progress Note - Box Estimator
Subjective
Date of Service: August 31, 2024
Patient seen and examined. No acute events overnight. Patient resting comfortably in chair. Patient reporting CP with cough due to prior CPR. Notes mild nose bleed 2/2 nasal cannula and scant hematuria. No sob, palpitations, lh, dizziness, near
syncope, syncope, or weakness. Telemetry SR without arrhythmia. -710/24h
Objective
Labs:
08/31/24 06:50
08/31/24 06:50
Labs
Hgb 13.9 g/dL (13.0-18.0) 08/31/24 06:50
Hct 42.9 % (39.0-52.0) 08/31/24 06:50
Plt Count 281 10^3/uL (130-400) D 08/31/24 06:50
PT 26.0 Sec (11.4-14.6) H 08/24/24 15:13
INR 2.33 08/24/24 15:13
APTT 105.3 Sec (23.4-35.0) H 08/31/24 16:20
Sodium 139 mmol/L (135-145) 08/31/24 06:50
Potassium 3.8 mmol/L (3.5-5.1) 08/31/24 06:50
BUN 30 mg/dl (9-20) H 08/31/24 06:50
Creatinine 0.8 mg/dL (0.7-1.3) 08/31/24 06:50
Glucose 106 mg/dl (70-99) H 08/31/24 06:50
Vital Signs and I&O:
Vital Signs
Temp Pulse Resp BP Pulse Ox
98.2 F 89 18 110/74 97
08/31/24 16:26 08/31/24 16:26 08/31/24 16:26 08/31/24 16:26 08/31/24 16:26
Vital Signs
Temp Pulse Resp BP Pulse Ox
98.2 F 89 18 110/74 97
08/31/24 16:26 08/31/24 16:26 08/31/24 16:26 08/31/24 16:26 08/31/24 16:26
Intake & Output
08/29/24 08/30/24 08/31/24 09/01/24
06:59 06:59 06:59 06:59
Intake Total 1024.2 / 1062.7 928.5 / 946.5 1148 / 1148
Output Total 2535 / 2610 1495 / 1495 1450 / 1450 450 / 450
Balance -1510.8 / -1547.3 -566.5 / -548.5 -302 / -302 -450 / -450
Physical Exam
Physical Exam
GEN: No distress, awake, alert, oriented x3. on supp O2
HEENT: supple, anicteric, mmm, eomi; pink around nasal cannula
LUNGS: faint crackles/diminished LLB, no wheezes
CV: Reg, S1/S2, no murmur
ABD: soft, BS+, NT/ND
EXT: No cyanosis, clubbing. trace edema of B/L LE
NEURO: Gross non-focal
SKIN: Warm, pink, dry. No rash. Ecchymoses of L forearm
--- NOTE | 2024-08-31 18:23 | PTCARENOTE ---
Spoke to Cardiology regarding patients intermittent hematuria. Plan is to continue Heparin Drip an closely monitor hematuria. Pt had intermittently nose bleeding from dryness from O2. Pt placed on humidified O2. Cont to assess patient status.
[2024-08-31 23:54] LABS: APTT 51.6 Sec (23.4-35.0)
[2024-09-01] MEDS: HEPARIN 25000 UNITS/250 ML IV (02:44)
[2024-09-01 03:00] VITALS: BP 110/64
[2024-09-01] MEDS: TYLENOL PO ×6 (03:37→23:09)
[2024-09-01 06:00] VITALS: BMI 26.5
[2024-09-01 06:08] LABS: Hemoglobin 12.7 g/dL (13.0-18.0); Mean Corp Hgb Conc. 34.3 g/dL (33.0-37.0); Mean Corpuscular Volume 87.5 fL (80.0-94.0); Mean Platelet Volume 9.1 fL (7.4-10.4); Platelet Count 247 10^3/uL (130-400); Red Blood Cell Count 4.23 10^6/uL (4.70-6.10); Red Cell Dist. Width 13.8 % (11.5-14.5); White Blood Cell Count 8.3 10^3/uL (4.8-10.8)
[2024-09-01 06:17] LABS: APTT 140.6 Sec (23.4-35.0)
[2024-09-01 06:41] LABS: Blood Urea Nitrogen 23 mg/dl (9-20); Calcium 8.6 mg/dl (8.4-10.2); Carbon Dioxide 32 mmol/L (22-30); Chloride 97 mmol/L (98-107); Estimated Creatinine Clearance 93 ml/min; Glucose 117 mg/dl (70-99); Magnesium 2.2 mg/dl (1.6-2.3); Potassium 3.7 mmol/L (3.5-5.1); Sodium 136 mmol/L (135-145); eGFR > 60.00
[2024-09-01 07:59] VITALS: BP 113/67
[2024-09-01] MEDS: ZYLOPRIM 300 MG PO (08:12)
[2024-09-01] MEDS: LIDOCAINE 4% PATCH 1 PATCH TOPICAL (08:12)
[2024-09-01] MEDS: ALDACTONE 12.5 MG PO (08:12)
[2024-09-01] MEDS: COREG 3.125 MG PO ×2 (08:12→20:36)
[2024-09-01] MEDS: ENTRESTO 24 MG/26 MG 1 TAB PO ×2 (08:12→20:36)
[2024-09-01] MEDS: LASIX 40 MG PO (08:12)
[2024-09-01] MEDS: NON-FORMULARY ITEM BOTH EYES (08:15)
[2024-09-01] MEDS: MIRALAX TUBE (08:17)
--- NOTE | 2024-09-01 08:50 | W.PN.HOSP.TC ---
Today's Communication/Plan
-
see AP
Assessment / Plan
Assessment / Plan
A/P:
# Cardiorespiratory arrest precipitated by hypoxia
# PEA presentation with CPR and epi x 5 and ROSC
# Acute hypoxic respiratory failure POA, resolved
Cardiac cath with no obstructive CAD
Neurological status intact
Extubated 08/29
Resumed INSPECTION AND TESTING SUPERVISOR CPAP post extubation
Cont O2 support, down from 5 L to 2L NC today, cont to wean as tolerated
advanced to solid food per SPL recc
PT OT recc HH
# Acute HFrEF (nonischemic cardiomyopathy) -> Takotsubo versus tachycardia induced cardiomyopathy
# Cardiogenic shock
Cath with elevated right left-sided filling pressures with reduced cardiac output; also significant elevated systemic vascular resistance.
Off milrinone, Off Levophed
Initial Echo 08/24 noted EF of 20-25%
Moderate mitral regurgitation and mild tricuspid regurgitation
IV Lasix 40 mg BID -> PO 40 mg daily
Lopressor 25 mg BID -> Coreg 3.125 BID
Added Entresto BID
Added Aldactone 12.5 mg daily
Repeat echo 08/31 noted improved EF to 60-65%
# Paroxysmal atrial fibrillation/atrial flutter
Status post in-clinic cardioversion converted to normal sinus rhythm
Status post ablation in [place] last month INSPECTION AND TESTING SUPERVISOR
Lopressor 25 mg BID -> Coreg 3.125 BID
INSPECTION AND TESTING SUPERVISOR on Xarelto
Holding heparin drip with hematuria
Off amiodarone due to prolonged QT
# Hematuria, onset 08/31
Holding heparin drip
# Fever likely aspiration pneumonia
blood cultures no growth, respiratory culture usual donny, urine culture no growth
s/p IV Zosyn x4 days , Abx stopped
# Mild Anemia:
Hgb stable at 12.7 today
# Hyperglycemia:
Insulin sliding scale
Hemoglobin A1c 5.9, Prediabetes range
# Hypertension:
BP stable
meds as above
# Hyperlipidemia:
resumed INSPECTION AND TESTING SUPERVISOR Crestor
# Gout:
resume INSPECTION AND TESTING SUPERVISOR allopurinol
DVT prophylaxis: Off heparin drip, will use lovenox SQ prophylactic dose
CODE STATUS: Full code
Dispo: HH
DW Card
DW RN
Anticipated Discharge: 24 - 48 hours
Subjective/Interval History
-
Date of Service: September 01, 2024
Objective Data
-
Labs:
Laboratory Results
08/31/24 09/01/24 09/01/24
22:43 05:52 13:30
WBC 8.3
Hgb 12.7 L
Hct 37.0 L
Plt Count 247
APTT 51.6 H 140.6 H Pending
Sodium 136
Potassium 3.7
Chloride 97 L
Carbon Dioxide 32 H
BUN 23 H
Creatinine 0.8
Glucose 117 H
Calcium 8.6
Vital Signs:
Vital Signs
Temp Pulse Resp BP Pulse Ox
36.9 C 84 16 113/67 95
09/01/24 07:59 09/01/24 07:59 09/01/24 07:59 09/01/24 07:59 09/01/24 07:59
I&O
08/31/24 09/01/24 09/02/24
06:59 06:59 06:59
Intake Total 1148 / 1148 1200 / 1200
Output Total 1450 / 1450 1110 / 1110
Balance -302 / -302 90 / 90
Review of Systems
-
All other systems: Reviewed and negative
Genitourinary: Reports Bleeding
Physical Exam
-
General: Well Developed, Well Nourished, Comfortable and Conversant
HEENT: Normocephalic, Atraumatic, Nose Appears Normal, Ears Appear Normal and Oxygen (2L NC)
Respiratory: Clear to Auscultation and Non Labored Respirations; Negative Accessory Resp Muscle Use
Cardiac: Regular Rhythm and S1/S2
GI: Soft, Nontender, Nondistended and Normal Bowel Sounds
Skin: Warm and Dry
Neuro: Awake, Alert, Oriented and AO x 3
Psych: Calm and Intact Judgement/Insight
Data Reviewed
-
Labs: Labs Reviewed by me
[2024-09-01 11:15] VITALS: BP 103/62
[2024-09-01 15:52] VITALS: BP 108/59
--- NOTE | 2024-09-01 16:22 | W.PN.CARDCBS ---
Today's Communication / Plan
-
Overall doing well
Restart Xarelto 20 mg a day
Observe for hematuria
If stable, discharge in a.m.
Impression / Plan
-
.
Primary Commercial Sales Director: Marty Yang ([facility])
Impression:
PEA arrest with CPR and epi x5 with ROSC, initially with cardiogenic shock and VDRF
B/L PNA
Acute HFrEF 20-25% with improvement in EF to 60-65% 08/31/2024
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
LBBB
Atrial flutter s/p CV 08/24/24 during cath
PAF s/p ablation procedure in [place] 07/22/24
Chronic OAC with xarelto
Post procedure pericarditis
HTN
HLD
Gout
Chronic sinus infections/issues
Hematuria
ECHO pre ablation in [place]: EF preserved, no significant valvular disease, no diastolic dysfunction
Echo 08/24/24: EF 20 to 25%, severe global hypokinesis, marked paradoxical septal motion, moderate MR, mild TR, PAP 20 to 25 mmHg, pleural effusion present
Echo 08/31/2024: EF 60-65%, normal RV, pleural effusion, normal RV, normal atria
Plan:
Apart from hematuria, he looks well. Hematuria is improving since heparin stopped this morning.
LV function has normalized.
Further information that has become available suggest that it is conceivable that his LV dysfunction was tachycardia mediated in the setting of propafenone and rapid ventricular response to atrial flutter. Propafenone should be avoided. If this is
the case, application of GDMT may be more optional as his EF has normalized quickly and was normal at the time of his ablation in [place].
Discussed with patient and son, we will resume Xarelto 20 mg daily.
proBNP has dropped from 2100 to 200. He is now on oral furosemide.
With resolution of LV dysfunction, it seems that ICD implantation is likely not required, will review with electrophysiology.
Discussed with patient and son, who is a vascular surgeon in [place].
If stable overnight, we can plan on discharge. I recommended he stay in the area for 1 to 2 weeks before returning to [place]. Currently he is here with his 97-year-old mother who recently had a TAVR by [facility] at the [facility]
[place] and resides at [facility].
We will arrange for an outpatient visit prior to his return to [place].
Progress Note - Commercial Sales Director
Subjective
Date of Service: September 01, 2024:
69-year-old man with history of PVI in [place] in July with pericarditis post procedure, maintained on propafenone, diltiazem, and bisoprolol thereafter. Presented with PEA arrest with VDRF on 08/24/2024, went urgently to the [facility], did not
have obstructive CAD, was in cardiogenic shock treated with inotropic/pressor therapy, initially EF 20-25%. Family member who is a ict business development manager at [place] [employer], has record of postprocedural atrial flutter with rapid ventricular response on
propafenone.
He feels well, had hematuria on heparin, now much better after heparin stopped this morning, had Hendrix catheter early in admission, no prior history of hematuria
PMH in addition to the above: Left bundle branch block, hypertension, hyperlipidemia, gout
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
Current meds: Allopurinol 300 mg a day, rosuvastatin 10 mg a day, MiraLAX, lidocaine patch, carvedilol 3.125 mg twice daily, Entresto 24/, spironolactone 12.5 mg daily, furosemide 40 mg a day and subcu Lovenox
108/59, pulse 87, head neck exam unremarkable, lungs are clear, regular rate and rhythm, no obvious murmurs, JVD okay, extremities without clubbing cyanosis or edema
Hemoglobin 12.7, potassium is 3.7, CO2 is 32, BUN and creatinine are 23 and 0.8, weight is 86 kg, if accurate down from admission weight of 107.4 kg
Objective
Labs:
09/01/24 05:52
09/01/24 05:52
Labs
Hgb 12.7 g/dL (13.0-18.0) L 09/01/24 05:52
Hct 37.0 % (39.0-52.0) L 09/01/24 05:52
Plt Count 247 10^3/uL (130-400) 09/01/24 05:52
PT 26.0 Sec (11.4-14.6) H 08/24/24 15:13
INR 2.33 08/24/24 15:13
APTT Cancelled 09/01/24 13:30
Sodium 136 mmol/L (135-145) 09/01/24 05:52
Potassium 3.7 mmol/L (3.5-5.1) 09/01/24 05:52
BUN 23 mg/dl (9-20) H 09/01/24 05:52
Creatinine 0.8 mg/dL (0.7-1.3) 09/01/24 05:52
Glucose 117 mg/dl (70-99) H 09/01/24 05:52
Vital Signs and I&O:
Vital Signs
Temp Pulse Resp BP Pulse Ox
36.6 C 87 16 108/59 93
09/01/24 15:52 09/01/24 15:52 09/01/24 15:52 09/01/24 15:52 09/01/24 15:52
Vital Signs
Temp Pulse Resp BP Pulse Ox
36.6 C 87 16 108/59 93
09/01/24 15:52 09/01/24 15:52 09/01/24 15:52 09/01/24 15:52 09/01/24 15:52
Intake & Output
08/30/24 08/31/24 09/01/24 11/29/24
07:59 07:59 07:59 07:59
Intake Total 908 / 976 1130 / 1130 1200 / 1200
Output Total 1420 / 1420 1450 / 1450 1110 / 1110
Balance -512 / -444 -320 / -320
Physical Exam
Physical Exam
See above
[2024-09-01] MEDS: LOVENOX 40 MG SC (17:18)
[2024-09-01] MEDS: CRESTOR 10 MG PO (17:18)
[2024-09-01] MEDS: XARELTO 20 MG PO (18:56)
[2024-09-01 19:46] VITALS: BP 119/65
[2024-09-01 23:41] VITALS: BP 101/59
[2024-09-02] MEDS: TYLENOL PO ×4 (03:17→15:38)
[2024-09-02 03:26] VITALS: BP 107/61
[2024-09-02 06:00] VITALS: BMI 29.1
[2024-09-02 07:08] VITALS: BP 102/64
[2024-09-02] MEDS: ENTRESTO 24 MG/26 MG 1 TAB PO (08:21)
[2024-09-02] MEDS: COREG 3.125 MG PO (08:22)
[2024-09-02] MEDS: LASIX 40 MG PO (08:22)
[2024-09-02] MEDS: ALDACTONE 12.5 MG PO (08:22)
[2024-09-02] MEDS: LIDOCAINE 4% PATCH 1 PATCH TOPICAL (08:23)
[2024-09-02] MEDS: NON-FORMULARY ITEM BOTH EYES (08:23)
[2024-09-02] MEDS: MIRALAX TUBE (08:23)
[2024-09-02] MEDS: ZYLOPRIM 300 MG PO (08:25)
--- NOTE | 2024-09-02 08:52 | W.PN.HOSP.TC ---
Addendum entered and electronically signed by Berta Glover MD 09/02/24 14:36:
total DC time 38 min
Patient requested pneumonia vaccine prior to discharge.
Reviewed current CDC guideline, recc for over 65-year-old who has not received pneumonia vaccine before, to give [id number] x 1 dose- ordered.
Original Note:
Today's Communication/Plan
-
DC today
Assessment / Plan
Assessment / Plan
A/P:
# Cardiorespiratory arrest precipitated by hypoxia
# PEA presentation with CPR and epi x 5 and ROSC
# Acute hypoxic respiratory failure POA, resolved
Cardiac cath with no obstructive CAD
Neurological status intact
Extubated 08/29
Resumed EMPLOYMENT TRAINING SPECIALIST CPAP post extubation
Weaned off O2 back to RA
advanced to solid food per [facility] recc
PT OT recc HH
# Acute HFrEF (nonischemic cardiomyopathy) -> Takotsubo versus tachycardia induced cardiomyopathy
# Cardiogenic shock
Cath with elevated right left-sided filling pressures with reduced cardiac output; also significant elevated systemic vascular resistance.
Off milrinone, Off Levophed
Initial Echo 08/24 noted EF of 20-25%
Moderate mitral regurgitation and mild tricuspid regurgitation
IV Lasix 40 mg BID -> PO 40 mg daily
Lopressor 25 mg BID -> Coreg 3.125 BID
Added Entresto BID
Added Aldactone 12.5 mg daily
Repeat echo 08/31 noted improved EF to 60-65%
# Paroxysmal atrial fibrillation/atrial flutter
Status post in-clinic cardioversion converted to normal sinus rhythm
Status post ablation in [place] last month EMPLOYMENT TRAINING SPECIALIST
Lopressor 25 mg BID -> Coreg 3.125 BID
resumed EMPLOYMENT TRAINING SPECIALIST on Xarelto
off heparin drip
Off amiodarone due to prolonged QT
# Hematuria, onset 08/31 and resolved
off heparin drip
resumed EMPLOYMENT TRAINING SPECIALIST on Xarelto
# Fever likely aspiration pneumonia
blood cultures no growth, respiratory culture usual donny, urine culture no growth
s/p IV Zosyn x4 days , Abx stopped
# Mild Anemia:
Hgb stable at 12.7 today
# Hyperglycemia:
Insulin sliding scale
Hemoglobin A1c 5.9, Prediabetes range
# Hypertension:
BP stable
meds as above
# Hyperlipidemia:
resumed EMPLOYMENT TRAINING SPECIALIST Crestor
# Gout:
resume EMPLOYMENT TRAINING SPECIALIST allopurinol
DVT prophylaxis: resumed Xarelto
CODE STATUS: Full code
Dispo: HH
Anticipated Discharge: Today
Subjective/Interval History
-
Date of Service: September 02, 2024
Objective Data
-
Labs:
Laboratory Results
09/02/24
06:52
WBC Pending
Hgb Pending
Hct Pending
Plt Count Pending
Sodium Pending
Potassium Pending
Chloride Pending
Carbon Dioxide Pending
BUN Pending
Creatinine Pending
Glucose Pending
Calcium Pending
Vital Signs:
Vital Signs
Temp Pulse Resp BP Pulse Ox
36.8 C 89 18 102/64 96
09/02/24 07:08 09/02/24 07:08 09/02/24 07:08 09/02/24 07:08 09/02/24 07:08
I&O
09/01/24 09/02/24 09/03/24
06:59 06:59 06:59
Intake Total 1200 / 1200 930 / 930
Output Total 1110 / 1110 300 / 300
Balance 90 / 90 630 / 630
Review of Systems
-
All other systems: Reviewed and negative
Genitourinary: Denies Bleeding (hematuria has resolved )
Physical Exam
-
General: Well Developed, Well Nourished, No Apparent Distress, Comfortable and Conversant
HEENT: Normocephalic, Atraumatic, Nose Appears Normal and Ears Appear Normal
Respiratory: Clear to Auscultation and Non Labored Respirations; Negative Accessory Resp Muscle Use
Cardiac: Regular Rhythm and S1/S2
GI: Soft, Nontender, Nondistended and Normal Bowel Sounds
Skin: Warm and Dry
Neuro: Awake, Alert, Oriented and AO x 3
Psych: Calm and Intact Judgement/Insight
Data Reviewed
-
Labs: Labs Reviewed by me
[2024-09-02 08:58] LABS: Hematocrit 35.1 % (39.0-52.0); Hemoglobin 11.9 g/dL (13.0-18.0); Mean Corp Hgb Conc. 33.9 g/dL (33.0-37.0); Mean Corpuscular Hgb 29.9 pg (27.0-31.0); Mean Corpuscular Volume 88.2 fL (80.0-94.0); Mean Platelet Volume 9.9 fL (7.4-10.4); Platelet Count 264 10^3/uL (130-400); Red Blood Cell Count 3.98 10^6/uL (4.70-6.10); Red Cell Dist. Width 13.8 % (11.5-14.5); White Blood Cell Count 7.9 10^3/uL (4.8-10.8)
[2024-09-02 09:24] LABS: Blood Urea Nitrogen 17 mg/dl (9-20); Calcium 8.5 mg/dl (8.4-10.2); Carbon Dioxide 32 mmol/L (22-30); Chloride 97 mmol/L (98-107); Estimated Creatinine Clearance 93 ml/min; Glucose 106 mg/dl (70-99); Magnesium 2.1 mg/dl (1.6-2.3); Potassium 3.7 mmol/L (3.5-5.1); Sodium 138 mmol/L (135-145); eGFR > 60.00
--- NOTE | 2024-09-02 10:05 | W.PN.CARDCBS ---
Addendum entered and electronically signed by Deondre Zapata MD 09/02/24 11:09:
Patient seen and examined
Agree with MARLY Barreto's note and assessment
Agree with MARLY Barreto's plan
Exam:
Cor regular
Lungs clear to auscultation bilaterally
Abdomen soft nontender positive bowel sounds
No extremity edema
Alert and x 3
Nonfocal neurologically
PEA arrest with CPR and epi x5 with ROSC, initially with cardiogenic shock and VDRF
B/L PNA
Acute HFrEF 20-25% with improvement in EF to 60-65% 08/31/2024
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
LBBB
Atrial flutter s/p CV 08/24/24 during cath
PAF s/p ablation procedure in [place] 07/22/24
Chronic OAC with xarelto
Post procedure pericarditis
HTN
HLD
Gout
Chronic sinus infections/issues
Hematuria
ECHO pre ablation in [place]: EF preserved, no significant valvular disease, no diastolic dysfunction
Echo 08/24/24: EF 20 to 25%, severe global hypokinesis, marked paradoxical septal motion, moderate MR, mild TR, PAP 20 to 25 mmHg, pleural effusion present
Echo 08/31/2024: EF 60-65%, normal RV, pleural effusion, normal RV, normal atria
Plan:
-feeling well and is eager for DC
-hematuria has resolved with discontinuation of heparin
-fortunately LV function has normalized by echo 08/31 therefore ICD implant not required.
-OP propafenone has been stopped due to concern his LV dysfunction was tachy mediated due to propafenone and rapid aflutter.
-continue xarelto
-continue coreg, entresto, aldactone for now. as EF normalized quickly may not require retirement
-continue po lasix 40mg daily
-BMP in 1 week
-he plans to stay in the area for 2 weeks post discharge. we have arranged OP cardiac follow up. Currently he is here with his 97-year-old mother who recently had a TAVR by [facility] Shea at the [facility] and resides at [facility]
Choice.
-OP cardiac follow up arranged
-ok for DC today from cardiac standpoint
-will have his medical record printed for patient to take home with him. have asked for echo to place images on disc as well
-d/w nursing
Original Note:
Today's Communication / Plan
-
coreg 3.125mg BID
entresto 24/26mg BID
spironolactone 12.5mg daily
lasix 40mg daily
xarelto 20mg QPM
crestor 10mg QPM
ok for DC today
BMP in 1 week
OP cardiac follow up arranged
echo disc being made
Impression / Plan
-
.
Primary Reservations Clerk: Marty Yang ([facility])
Impression:
PEA arrest with CPR and epi x5 with ROSC, initially with cardiogenic shock and VDRF
B/L PNA
Acute HFrEF 20-25% with improvement in EF to 60-65% 08/31/2024
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
LBBB
Atrial flutter s/p CV 08/24/24 during cath
PAF s/p ablation procedure in [place] 07/22/24
Chronic OAC with xarelto
Post procedure pericarditis
HTN
HLD
Gout
Chronic sinus infections/issues
Hematuria
ECHO pre ablation in [place]: EF preserved, no significant valvular disease, no diastolic dysfunction
Echo 08/24/24: EF 20 to 25%, severe global hypokinesis, marked paradoxical septal motion, moderate MR, mild TR, PAP 20 to 25 mmHg, pleural effusion present
Echo 08/31/2024: EF 60-65%, normal RV, pleural effusion, normal RV, normal atria
Plan:
-feeling well and is eager for DC
-hematuria has resolved with discontinuation of heparin
-fortunately LV function has normalized by echo 08/31 therefore ICD implant not required.
-OP propafenone has been stopped due to concern his LV dysfunction was tachy mediated due to propafenone and rapid aflutter.
-continue xarelto
-continue coreg, entresto, aldactone for now. as EF normalized quickly may not require retirement
-continue po lasix 40mg daily
-BMP in 1 week
-he plans to stay in the area for 2 weeks post discharge. we have arranged OP cardiac follow up. Currently he is here with his 97-year-old mother who recently had a TAVR by [facility] Shea at the [facility] and resides at [facility]
Choice.
-OP cardiac follow up arranged
-ok for DC today from cardiac standpoint
-will have his medical record printed for patient to take home with him. have asked for echo to place images on disc as well
-d/w nursing
Progress Note - Reservations Clerk
Subjective
Date of Service: September 02, 2024
no issues overnight. eager for DC
Objective
Labs:
09/02/24 06:52
09/02/24 06:52
Labs
Hgb 11.9 g/dL (13.0-18.0) L 09/02/24 06:52
Hct 35.1 % (39.0-52.0) L 09/02/24 06:52
Plt Count 264 10^3/uL (130-400) 09/02/24 06:52
PT 26.0 Sec (11.4-14.6) H 08/24/24 15:13
INR 2.33 08/24/24 15:13
APTT Cancelled 09/01/24 13:30
Sodium 138 mmol/L (135-145) 09/02/24 06:52
Potassium 3.7 mmol/L (3.5-5.1) 09/02/24 06:52
BUN 17 mg/dl (9-20) 09/02/24 06:52
Creatinine 0.8 mg/dL (0.7-1.3) 09/02/24 06:52
Glucose 106 mg/dl (70-99) H 09/02/24 06:52
Vital Signs and I&O:
Vital Signs
Temp Pulse Resp BP Pulse Ox
98.3 F 89 18 102/64 96
09/02/24 07:08 09/02/24 07:08 09/02/24 07:08 09/02/24 07:08 09/02/24 08:30
Vital Signs
Temp Pulse Resp BP Pulse Ox
98.3 F 89 18 102/64 96
09/02/24 07:08 09/02/24 07:08 09/02/24 07:08 09/02/24 07:08 09/02/24 08:30
Intake & Output
08/31/24 09/01/24 09/02/24 09/03/24
07:59 07:59 07:59 07:59
Intake Total 1130 / 1130 1200 / 1200 930 / 930
Output Total 1450 / 1450 1110 / 1110 300 / 300
Balance -320 / -320 90 / 90 630 / 630
Physical Exam
Physical Exam
GEN: No distress, awake, alert, oriented x3
HEENT: supple, anicteric, mmm, eomi
LUNGS: few crackles LLB, no wheezes
CV: Reg, S1/S2, no murmur
ABD: soft, BS+, NT/ND
EXT: No cyanosis, clubbing, edema
NEURO: Gross non-focal
SKIN: Warm, pink, dry. No rash. ecchymoses of L forearm
--- NOTE | 2024-09-02 10:32 | CM ---
Addendum entered by Pearl Woodson RN 09/02/24 15:25:
Called [phone] back spoke with Salma. He said clinical received but could not clarify if [facility] would be covered.He said insurance was [facility] and instructed to call # [phone] Keon was unable to confirm VN
coverage.Attempted to Call [facility] [phone] Kristy said he could not find pt in their system.
Spoke with son Juancarlos who said if [facility] not covered they will pay and get reimbursed.
Son given [facility] pharmacy on location they can buy a walker for pt.
Son said pt has an appt with [facility] Resident [phone] on ThursdaySep 05 Amanda [facility] notified.
Family dgt son will drive him to [facility] (# [phone])at : [address] ([facility]) [place]. [facility] aware of address.
Amanda informed pt birch of out of pocket PT OT visits.
wrote paper scripts for meds.
PLAN To Family home with [facility] after MD appt.
Original Note:
Called [facility] policy number [id number] Phone Number with report number [id number].
Spoke with [employer] auth process. Information given and clinical fax to [phone] . Requested VN coverage with [facility].
Will will need to see local MD like resident wellness to receive [facility].
Will give pt coupons for Entresto and Xarelto .
PT OT indicated Home with VN. Family agrees .
Pt and family will either stay [facility] [address] [facility] [place] or a hotel.
PLAN DC to hotel or family home with possible VN if covered.
[2024-09-02 11:33] VITALS: BP 100/65
--- NOTE | 2024-09-02 13:06 | W.HF.CON ---
Heart Failure
- LV Function
Left ventricular function study result: LV Ejection fraction >/= 50%
Ejection Fraction Percentage: 60-65
- ARNI
Patient already on ARNI: Yes
- ACEI/ARB
Patient already on ACEI/ARB: No
Heart Failure ACEI/ARB Not Indicated: LV Ejection Fraction > 40%
- Beta Hellen
Patient already on Evidence Based Beta Hellen: Yes
- Mineralocorticord Receptor Antagonist
Patient already on MRA: Yes
- SGLT-2 Inhibitor
Patient already on SGLT-2 Inhibitor: No
Heart Failure SGLT-2 Inhibitor Not Indicated: LV Ejection Fraction >40%
- Afib Anticoagulation
Patient already on Anticoagulation for Afib: Yes
- NYHA CHF Classification
NYHA CHF Classification Level: Class III - Symptoms w/ min exertion, interferes w/ nml daily activity
- ACC/AHA Stage
ACC/AHA Stage: Stage C: Symptomatic Heart Failure
--- NOTE | 2024-09-02 13:29 | VNURNOTE ---
Home Health Liaison met with patient and family at bedside to discuss [facility] nurse/therapy, visits, schedule and homebound status. Patient is agreeable and understands that visits at home will be 2-3 x per week to assess and teach medical management.
He understands that he needs to be seen by residency clinic prior to starting [facility] services. He reached out to residency clinic while meeting with liaison. He is aware of potential private pay costs for VN. Verbalized understanding. [facility] brochure
provided with contact information. Patient is aware that [facility] will contact them for start of care in 1-2 days after discharge from .
[facility] referral completed in [facility].
--- NOTE | 2024-09-02 13:34 | W.DCSUMMARY ---
Discharge Summary
Discharge Data
Date of Admission: 08/24/24
Date of Discharge: 09/02/24
-
Pending Results: No
Hospital Course
Principal Diagnosis:
Cardiopulmonary arrest/PEA status post CPR and epi x 5 and resumed ROSC
Acute hypoxic respiratory failure, resolved
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
Cardiogenic shock, resolved
Paroxysmal atrial fibrillation/atrial flutter status post cardioversion.
Hematuria, resolved
Fever likely aspiration pneumonia
Chronic Diagnoses:�
Paroxysmal atrial fibrillation/atrial flutter
Prediabetes, Hemoglobin A1c 5.9 %
Hypertension
Hyperlipidemia, continue Crestor
Gout, continue allopurinol
Consultations:�
Cardiology
[employer]
Procedures:�
Cardiac cath 08/24/24: No obstructive coronary artery disease noted. Successful synchronized cardioversion from atrial flutter to normal sinus rhythm.
Intubation with subsequent successful extubation and weaned to room air
Clinical course:�
This is a 69-year-old male, who is visiting from [place] with past medical history as stated above, presented with shortness of breath.
Patient developed cardiac arrest in the emergency room and was intubated in the emergency room. 5 rounds of epinephrine were given.
Problem 1:
Cardiopulmonary arrest/PEA status post CPR and epi x 5 and resumed ROSC.
He was intubated in the emergency room and was extubated on 08/29/2024 with no subsequent respiratory insufficiency (oxygen was weaned back to room air).
His neurologic function remains intact following CPR/extubation.
He passed speech eval, and was able to tolerate solid food while in the hospital.
Problem 2:
Acute heart failure with recovered ejection fraction, possibly due to tachycardia induced cardiomyopathy (nonischemic cardiomyopathy).
This was associated with cardiogenic shock, which resolved.
His Cardiac cath performed on 08/24/24 showed no obstructive coronary artery disease noted. He had successful synchronized cardioversion from atrial flutter to normal sinus rhythm.
Initially he required milrinone and Levophed support, both were subsequently discontinued.
His initial echo from 08/24/2024 showed an EF of 20-25%.
Subsequent echo obtained on 08/31/2024 showed recovered EF to 60-65%.
He received IV Lasix while in the hospital and was discharged with oral Lasix 40 mg daily.
He was also discharged with Coreg 3.125 mg twice daily, Entresto twice daily, and Aldactone 12.5 mg daily.
Problem 3:
Paroxysmal atrial fibrillation/atrial flutter.
He had successful cardioversion which converted him from atrial flutter to normal sinus rhythm.
He can continue Coreg as stated above for rate control.
While in the hospital, he received heparin drip, and this replaced by his prior to admission Xarelto.
Problem 4:
Hematuria, resolved following discontinuation of heparin drip.
Problem 5:
Fever likely aspiration pneumonia, resolved.
His blood cultures showed no growth, his respiratory culture grew usual donny, and his urine culture was also no growth.
He received empiric antibiotic IV Zosyn for 4 days, and no further antibiotic was continued.
As for the rest of his medical problems, they were stable during his hospital stay.
Discharge Plan
-
Patient Disposition: Home (Routine Discharge)
Discharge Diagnosis/Procedures: Cardiorespiratory arrest precipitated by hypoxia status post CPR;
Resolved acute hypoxic respiratory failure;
Extubation with intact neurologic function;
Acute heart failure with recovered ejection function (nonischemic cardiomyopathy), due to Takotsubo versus tachycardia induced cardiomyopathy;
Paroxysmal atrial fibrillation/atrial flutter;
Resolved Hematuria
Condition: Good
Diet: Low Fat, Low Cholesterol and 2 Gram Sodium
Activity: As tolerated
Driving Restrictions: Not until seen by your Dr
Blood Work: CBC and BMP with your PCP in 1 week
Specialty Instructions: Weigh Daily- Call MD for wt gain/loss 3 lbs overnight/5 lbs in 1 week
Instructions: *PCP/Other Camera Assembler Heart Failure Instructions
Referrals:
Odalis Gonsales PA-C [Specified Professional Personl] - 09/09/24 2:40 pm (You have a cardiology follow-up appointment at the [employer] office, [address]. Please call with questions)
UNKNOWN - PT NOT,INTERVIEWE [Family Provider] - in less than 1 week
Additional Discharge Medication Instructions: You were started with these medications during your hospital stay:
Lasix 40 mg daily
Coreg 3.125 mg twice daily,
Entresto twice daily,
Aldactone 12.5 mg daily
STOP these medications:
Bisoprolol, Cardizem, Propafenone
Prescriptions:
New
spironolactone 25 mg Tablet
12.5 mg PO DAILY Qty: 30 0RF
carvedilol 3.125 mg Tablet
3.125 mg PO BID Qty: 60 0RF
sacubitril-valsartan [Entresto] 24-26 mg Tablet
1 tab PO BID Qty: 60 0RF
furosemide 40 mg Tablet
40 mg PO DAILY Qty: 30 0RF
Continued
sucralfate [Carafate] 1 gram Tablet
1 g PO UD
Rx Instructions:
take 1gram po daily for 3 weeks then stop, start on 08/03/24
omeprazole 40 mg Capsule,Delayed Release(Dr/Ec)
40 mg PO UD
Rx Instructions:
take 40mg bid for 3 weeks
allopurinol 300 mg Tablet
300 mg PO DAILY
rosuvastatin [Crestor] 10 mg Tablet
10 mg PO QPM
Xarelto 20 mg Tablet
20 mg PO QPM
multivitamin Tablet
1 tab PO DAILY
fluticasone propion-salmeterol 250-50 mcg/dose Blister With Device
1 inh INHALATION R BID
fluticasone propionate 50 mcg/actuation Coulter,Suspension
1 spray INTRANASAL [id number] PRN (Reason: congestion)
Discontinued
propafenone 150 mg Tablet
150 mg PO UD
Rx Instructions:
take 150mg tid for 2 weeks then 150mg q12h there after
Colchiquim
1 mg PO UD
Rx Instructions:
take 1mg po daily for 3 weeks then stop, start on 08/03/24; last day 08/24/24
Diltiazem
180 mg PO DAILY
bisoprolol fumarate
1 tab PO Q12H
Rx Instructions:
home list stated concor comprimido 1,25mg (bisoprolol)
Discharge Orders:
Discharge Patient (As Directed); Ordered 09/02/24
Ordered By: Berta Glover
Discharge Date and Time
Print Language: [place]
[2024-09-02] MEDS: PREVNAR 20 0.5 ML IM (15:59)
== END 2024-09-02 16:29 | disposition home health service (06) | DRG 286 ==
LOC: 4 EAST ACU 12:53
PROVIDERS: Hospitalist; Internal Medicine; Internal Medicine Cardiovascular Disease; Nuclear Medicine Nuclear Cardiology; Nurse Practitioner Family; Nurse Practitioner Primary Care; Physician Assistant; Radiology Diagnostic Radiology; ADMITTING PHYSICIAN Hospitalist; ATTENDING PHYSICIAN Internal Medicine; EMERGENCY PHYSICIAN Emergency Medicine; OTHER PHYSICIAN Internal Medicine Critical Care Medicine; OTHER PHYSICIAN Internal Medicine Interventional Cardiology
PROC: 5A2204Z Restoration of Cardiac Rhythm, Single (ICD-10-PCS; 2024-08-24)
PROC: B211YZZ Fluoroscopy of Multiple Coronary Arteries using Other Contrast (ICD-10-PCS; 2024-08-24)
PROC: 5A1955Z Respiratory Ventilation, Greater than 96 Consecutive Hours (ICD-10-PCS; 2024-08-24)
PROC: 4A023N8 Measurement of Cardiac Sampling and Pressure, Bilateral, Percutaneous Approach (ICD-10-PCS; 2024-08-24)
PROC: 0BH18EZ Insertion of Endotracheal Airway into Trachea, Via Natural or Artificial Opening Endoscopic (ICD-10-PCS; 2024-08-24)
PROC: 5A12012 Performance of Cardiac Output, Single, Manual (ICD-10-PCS; 2024-08-24)
PROC: 0DH67UZ Insertion of Feeding Device into Stomach, Via Natural or Artificial Opening (ICD-10-PCS; 2024-08-26)
PROC: 3E0234Z Introduction of Serum, Toxoid and Vaccine into Muscle, Percutaneous Approach (ICD-10-PCS; 2024-09-02)
DX: I50.21 Acute systolic (congestive) heart failure (principal); I46.8 Cardiac arrest due to other underlying condition; J96.01 Acute respiratory failure with hypoxia; R57.0 Cardiogenic shock; J69.0 Pneumonitis due to inhalation of food and vomit; I42.8 Other cardiomyopathies; I48.92 Unspecified atrial flutter; I31.9 Disease of pericardium, unspecified; Z99.11 Dependence on respirator [ventilator] status; K21.9 Gastro-esophageal reflux disease without esophagitis; M10.9 Gout, unspecified; E78.5 Hyperlipidemia, unspecified; I44.7 Left bundle-branch block, unspecified; G47.33 Obstructive sleep apnea (adult) (pediatric); I10 Essential (primary) hypertension; R73.03 Prediabetes; I48.0 Paroxysmal atrial fibrillation; I34.0 Nonrheumatic mitral (valve) insufficiency; Z88.2 Allergy status to sulfonamides; Z79.899 Other long term (current) drug therapy; Z79.01 Long term (current) use of anticoagulants; Z11.52 Encounter for screening for COVID-19; Z23 Encounter for immunization
CPT/HCPCS: 93308; 31500; 36600; 71045; 76604; 80048; 80051; 80053; 81003; 81015; 82310; 82330; 82805; 82810; 82947; 82962; 83036; 83605; 83735; 83880; 84132; 84145; 84302; 84478; 84484; 85025; 85027; 85610; 85730; 87040; 87070; 87086; 87205; 87811; 90677; 92526; 92610; 92950; 93005; 93306; 93321; 93325; 93460; 94002; 94003; 94640; 96374; 96375; 97116; 97163; 97167; 97530; 99291; C1894; G0009; J2260; Q9950; Q9967

== ENCOUNTER → 2024-09-06 09:33 | Outpatient (REF) | payer OTHER, SELFPAY ==
[2024-09-06 11:58] LABS: % Basophils 0.7 % (0-2); % Eosinophils 1.7 % (0-6); % Immature Granulocytes 0.7 % (0-0.5); % Lymphocytes 19.7 % (20.5-51.1); % Monocytes 10.8 % (1.7-9.3); % Neutrophils 66.4 % (42.2-75.2); Absolute Basophils 0.1 10^3/uL (0-0.2); Absolute Eosinophils 0.1 10^3/uL (0-0.7); Absolute Immature Granulocytes 0.1 10^3/uL (0-0.05); Absolute Lymphocytes 1.4 10^3/uL (1.2-3.4); Absolute Monocytes 0.8 10^3/uL (0.1-0.6); Absolute Neutrophils 4.8 10^3/uL (1.4-6.5); Hematocrit 40.1 % (39.0-52.0); Hemoglobin 13.1 g/dL (13.0-18.0); Mean Corp Hgb Conc. 32.7 g/dL (33.0-37.0); Mean Corpuscular Hgb 29.7 pg (27.0-31.0); Mean Corpuscular Volume 90.9 fL (80.0-94.0); Mean Platelet Volume 10.1 fL (7.4-10.4); Nucleated Red Blood Cells % 0 % (-); Platelet Count 340 10^3/uL (130-400); Red Blood Cell Count 4.41 10^6/uL (4.70-6.10); Red Cell Dist. Width 14.4 % (11.5-14.5); White Blood Cell Count 7.2 10^3/uL (4.8-10.8)
[2024-09-06 12:15] LABS: Blood Urea Nitrogen 16 mg/dl (9-20); Calcium 9.5 mg/dl (8.4-10.2); Carbon Dioxide 31 mmol/L (22-30); Chloride 98 mmol/L (98-107); Glucose 103 mg/dl (70-99); Potassium 4.9 mmol/L (3.5-5.1); Sodium 141 mmol/L (135-145); eGFR > 60.00
== END ==
LOC: REG 09:33
PROVIDERS: ATTENDING PHYSICIAN Internal Medicine
DX: I50.21 Acute systolic (congestive) heart failure (principal)
CPT/HCPCS: 36415; 80048; 85025